=== PATIENT | female | born 1960 | race Caucasian/White ===

== ENCOUNTER 2016-02-07 15:52 | Emergency (ER) | payer BC, OTHER ==
[~2016-02-07] VITALS: Ht 154.9 cm; Wt 89.8 kg
[~2016-02-07 15:52] MED LIST: AMBI10TA PO; AMLO5TAB2 PO; ASPI81TA82 PO; FLUT1SPR9 EACH NARE; GABA600T PO; HYDR25TA5 PO; LISI40TA PO; METF500T PO; SIMV20TA PO; ZANTTAB9 PO; ZYRT10CA PO; [UNRECOGNIZED DRUG - CODE] PO
[2016-02-07 16:24] VITALS: BP 133/85; PULSE 98; RESP 20; TEMP 98.7; O2SAT 96
[2016-02-07] MEDS ORDERED: ASPI81TA11 PO (17:00)
[2016-02-07] MEDS ORDERED: CALC-179 (17:00)
[2016-02-07] MEDS ORDERED: AMOX500T PO (17:16)
[2016-02-07] MEDS ORDERED: MAGICADU2 SWISH-SPIT (17:16)
--- NOTE | 2016-02-07 17:16 | PD ---
HPI Chief Complaint: ENT Complaint Time Seen by Provider: 17:13 Travel History International Travel<30 days: No Contact w/Intl Traveler<30days: No Traveled to known affect area: No History of Present Illness HPI 55-year-old female presents to the emergency Department with complaint of nasal congestion, sore throat, facial pressure 10 days. Denies fever, chills, nausea , vomiting. Thought that she would get better and hasn't. Has been trying multiple lkdx-fon-ppwyfrc medications to help with symptoms with no relief. Denies difficulty swallowing, unusual drooling, lump in throat. Reports painful swallowing. Denies ear pain. No known aggravating or relieving factors. History of hypertension, diabetes, asthma. Has been using her albuterol inhaler through her illness. Denies chest pain, shortness of breath, wheezing. Denies allergies. No other modifying factors or associated signs and symptoms. PFSH Past Medical History Hx Anticoagulant Therapy: Yes (ASA) Arthritis: Yes Asthma: Yes Blood Disorders: No Depression: Yes Cancer: No Cardiac Catheterization: Yes Cardiovascular Problems: Yes Chest Pain: Yes Diabetes: Yes Patient Takes Glucophage: Yes Diminished Hearing: No Gastrointestinal Disorders: Yes GERD: Yes Glaucoma: Yes Genitourinary: No Headaches: No Hypertension: Yes Immune Disorder: No Musculoskeletal: Yes Neurologic: Yes Psychiatric: Yes Respiratory: Yes Immunizations Current: No ?: Not : 3 Para: 2 Miscarriage: 1 Tubal Ligation: Yes Past Surgical History Abdominal Surgery: No AICD: No Cardiac Surgery: No Coronary Stent: Yes (LEFT CIRCUMFLEX 2005) Ear Surgery: No Endocrine Surgery: No Eye Surgery: No Genitourinary Surgery: No Gynecologic Surgery: No Joint Replacement: No Oral Surgery: No Pacemaker: No Thoracic Surgery: No Social History Alcohol Use: No Tobacco Use: No (QUIT 1999) Substance Use: No Allergies-Medications (Allergen,Severity, Reaction): Coded Allergies: No Known Allergies (Verified , 02/07/16) Reported Meds & Prescriptions Reported Meds & Active Scripts Active Magic Mouthwash Adult Liq (Multi-Ingredient Mouthwash/Gargle) 120 Ml Susp 5 Ml SWISH-SPIT Q3HR PRN Each 5 mL contains: Nystatin 200,000 units, Diphenhydramine 4.25 mg, Viscous Lidocaine 10 mg, [place] syrup 0.8 mL Amoxicillin 500 Mg Tab 500 Mg PO BID 10 Days Ambien (Zolpidem Tartrate) 10 Mg Tab 10 Mg PO HS PRN Amlodipine (Amlodipine Besylate) 5 Mg Tab 5 Mg PO DAILY Lisinopril 40 Mg Tab 40 Mg PO DAILY Metformin (Metformin HCl) 500 Mg Tab 500 Mg PO BIDPC With meals Hydrochlorothiazide 25 Mg Tab 25 Mg PO DAILY Reported Calcium (Bmwonfa-Stpcelgwlm-Asegewg D-Magnesium) [id number] Oq-Tg-Sxuv-Mg Tab Unknown Dose Aspirin EC (Aspirin) 81 Mg Tabdr 81 Mg PO DAILY Review of Systems Except as stated in HPI: all other systems reviewed are Neg Physical Exam Narrative GENERAL: Well-nourished, well-developed female patient, in no acute distress SKIN: Warm and dry. No rash. HEAD: Atraumatic. Normocephalic. Frontal and maxillary sinus tenderness on palpation. EYES: Pupils equal and round at 3 mm with brisk reaction. No scleral icterus. No injection or drainage. PERRLA. ENT: Mucosa pink and moist. Oropharynx with erythema; without exudates, tonsillar edema.. No uvular edema. No uvular, palatal, or tonsillar deviation. Airway patent. EARS: Bilateral pinnae and external canals appear within normal limits. Bilateral tympanic membranes without erythema, dullness or perforation. NECK: Trachea midline. No lymphadenopathy. CARDIOVASCULAR: Regular rate and rhythm. No murmur appreciated. RESPIRATORY: No accessory muscle use. Clear to auscultation. Breath sounds equal bilaterally. GASTROINTESTINAL: Abdomen soft, non-tender, nondistended. Hepatic and splenic margins not palpable. Bowel sounds are active 4 quadrants. MUSCULOSKELETAL: No obvious deformities. No clubbing. No cyanosis. No edema. NEUROLOGICAL: Awake and alert. Oriented 3. No obvious cranial nerve deficits. Motor grossly within normal limits. Normal speech. Moves all extremities. 5/5 strength to all extremities. PSYCHIATRIC: Appropriate mood and affect; insight and judgment normal. Data Data Last Documented VS Vital Signs Date Time Temp Pulse Resp B/P Pulse Ox O2 Delivery O2 Flow Rate FiO2 02/07/16 16:24 98.7 98 20 133/85 96 MDM Medical Decision Making Medical Screen Exam Complete: Yes Emergency Medical Condition: Yes Medical Record Reviewed: Yes Differential Diagnosis Sinusitis, pharyngitis, upper respiratory infection Narrative Course 55-year-old female physical exam consistent with sinusitis and pharyngitis. Patient has been sick for 10 days. Denies fever. Afebrile in the ER. Vital signs stable. She is nontoxic-appearing. Prescribed patient antibiotics secondary to length of illness. Amoxicillin and Magic mouthwash prescribed for home. Patient is medically cleared and stable for discharge. Discussed reasons to return to the emergency department. Instructed patient to follow up with primary care provider. Patient agrees with treatment plan. The patients vital signs are stable and the patient is stable for outpatient follow-up and treatment. Patient discharged home, stable and in no acute distress. Diagnosis Primary Impression: Sinusitis Qualified Code: J01.90 - Acute sinusitis, recurrence not specified, unspecified location Additional Impression: Pharyngitis Qualified Code: J02.9 - Pharyngitis, unspecified etiology Referrals: Primary Care Physician Patient Instructions: General Instructions, Pharyngitis (ED), Sinusitis (ED) Additional Instructions: Take Antibiotics as prescribed and complete full course of antibiotics Get plenty of sleep/rest Rest your voice Drink plenty of fluids to prevent dehydration Use warm saltwater gargles to soothe throat pain Use an air humidifier/turn off ceiling fans Use throat lozenges as needed for sore throat Use ibuprofen or acetaminophen as needed to relieve pain and fever Follow-up with your primary care provider within 2-4 days Return immediately to the emergency department Med/Other Pt SpecificInfo: Prescription(s) given Scripts Oylqzsuo-Kcadvnftfsonzrh-Wsfpssuny Liq (Magic Mouthwash Adult Liq)120 Ml Susp5 Ml SWISH-SPIT Q3HR PRN (SORE THROAT) #120 ML Ref 0 Each 5 mL contains: Nystatin 200,000 units, Diphenhydramine 4.25 mg, Viscous Lidocaine 10 mg, [place] syrup 0.8 mL Prov:Marla Wheatley 02/07/16 Amoxicillin 500 Mg [id number] Mg PO BID 10 Days Ref 0 Prov:Marla Wheatley 02/07/16 Disposition: 01 DISCHARGE HOME Condition: Stable Marla Wheatley Feb 07, 2016 17:16
[2016-02-16] MEDS ORDERED: AUGM875T PO (15:53)
[2016-02-16] MEDS ORDERED: MEDR4PAK PO (15:53)
[2016-03-30] MEDS ORDERED: LISI40TA PO (15:47)
[2016-03-30] MEDS ORDERED: ACYC200C66 PO (15:47)
[2016-03-30] MEDS ORDERED: GABA600T PO (15:47)
[2016-03-30] MEDS ORDERED: AMLO5TAB2 PO (15:47)
[2016-03-30] MEDS ORDERED: SIMV20TA PO (15:47)
[2016-03-30] MEDS ORDERED: HYDR25TA5 PO (15:47)
[2016-03-30] MEDS ORDERED: METF500T PO (15:47)
[2016-03-30] MEDS ORDERED: AMBI10TA PO (15:47)
[2016-03-30] MEDS ORDERED: LATA.005%O EACH EYE (15:55)
[2016-05-22] MEDS ORDERED: CEPH-459 PO (15:57)
[2016-05-22] MEDS ORDERED: XYZA5TAB2 PO (15:57)
[2016-05-30] MEDS ORDERED: CLIN1CAP6 PO (09:45)
[2016-05-30] MEDS ORDERED: MEDR4PAK PO (09:45)
[2016-06-15] MEDS ORDERED: LATA.005%O EACH EYE ×2 (15:39→15:45)
[2016-06-15] MEDS ORDERED: IBUP-232 PO (15:54)
[2016-06-22] MEDS ORDERED: MEDICAL COMPRES1 MIS (13:48)
== END 2016-02-07 17:25 | disposition home or self-care (01) ==
LOC: PHEFT 15:52
DX: J01.90 Acute sinusitis, unspecified (principal); J02.9 Acute pharyngitis, unspecified
CPT/HCPCS: 99283

== ENCOUNTER 2017-02-14 15:13 | Emergency (ER) | payer BC ==
[~2017-02-14] VITALS: Ht 154.9 cm; Wt 86.4 kg
[~2017-02-14 15:13] MED LIST changes: +ACYC200C66 PO; +ASPI81TA23 PO; -ASPI81TA82 PO; +AZIT250T3 PO; +BENZ100 PO; +CALC-179; -FLUT1SPR9 EACH NARE; +IBUP-232 PO; +LATA.005%O EACH EYE; +MAGICADU2 SWISH-SWAL; +MEDICAL COMPRES1 MIS; +MEDR4PAK PO; +XYZA5TAB2 PO; -ZANTTAB9 PO; -ZYRT10CA PO; -[UNRECOGNIZED DRUG - CODE] PO
[2017-02-14 15:14] VITALS: BP 157/125; PULSE 106; RESP 20; TEMP 99.5; O2SAT 97
--- NOTE | 2017-02-14 16:10 | RADRPT ---
EXAM DATE/TIME: 02/14/2017 15:50 [facility] COMPARISON: CHEST PA & LAT, April 07, 2013, 5:12. INDICATIONS : Congested. Cough. Chest pain. MEDICAL HISTORY : None. SURGICAL HISTORY : None. ENCOUNTER: Initial ACUITY: 4 - 6 days PAIN SCORE: 5/10 LOCATION: Left chest FINDINGS: PA and lateral views of the chest demonstrate the lungs to be symmetrically aerated without evidence of mass, infiltrate or effusion. The cardiomediastinal contours are unremarkable. Osseous structure s are intact. CONCLUSION: No acute disease. Yfn Norton MD FACR on February 14, 2017 at 16:07 Board Certified Radiologist. This report was verified electronically.
[2017-02-14 16:48] LABS: AUTOMATED NEUTROPHIL # 3.7 TH/MM3 (1.8-7.7); BASOPHIL % 0.6 % (0.0-2.0); EOSINOPHIL % 0.3 % (0.0-4.0); HEMATOCRIT 34.9 % (35.0-46.0); HEMOGLOBIN 12.2 GM/DL (11.6-15.3); LYMPHOCYTE # 1.9 TH/MM3 (1.0-4.8); MEAN CELL VOLUME 85.9 FL (80.0-100.0); MEAN CORPUSCULAR HEMOGLOBIN 30.2 PG (27.0-34.0); MEAN CORPUSCULAR HGB CONC 35.1 % (32.0-36.0); MEAN PLATELET VOLUME 8.5 FL (7.0-11.0); MONO % 11.5 % (0.0-8.0); MONOCYTE # 0.7 TH/MM3 (0-0.9); NEUT % 57.6 % (16.0-70.0); PLATELET COUNT 283 TH/MM3 (150-450); RED BLOOD COUNT 4.06 MIL/MM3 (4.00-5.30); WHITE BLOOD COUNT 6.4 TH/MM3 (4.0-11.0)
[2017-02-14 17:13] LABS: ALBUMIN 3.6 GM/DL (3.4-5.0); AST (GOT) 40 U/L (15-37); BICARBONATE 26.5 MEQ/L (21.0-32.0); BLOOD UREA NITROGEN 15 MG/DL (7-18); CALCIUM 8.9 MG/DL (8.5-10.1); CHLORIDE 99 MEQ/L (98-107); GLOMERULAR FILTRATION RATE 65 ML/MIN (>89); GLUCOSE,RANDOM 143 MG/DL (74-106); SODIUM (NA) 137 MEQ/L (136-145)
[2017-02-14 17:18] LABS: ALKALINE PHOSPHATASE 94 U/L (45-117); ALT (GPT) 47 U/L (10-53)
[2017-02-14 17:19] LABS: TOTAL BILIRUBIN ADULT 0.3 MG/DL (0.2-1.0); TOTAL PROTEIN 7.8 GM/DL (6.4-8.2)
[2017-02-14 17:37] VITALS: BP 133/73; PULSE 96; RESP 20; TEMP 99.1; O2SAT 98
--- NOTE | 2017-02-14 18:08 | PD ---
HPI Chief Complaint: Respiratory Symptoms Time Seen by Provider: 18:07 Travel History International Travel<30 days: No Contact w/Intl Traveler<30days: No Traveled to known affect area: No History of Present Illness HPI 56-year-old female with history of COPD using an albuterol inhaler daily presents the emergency Department with several day history of increased cough, sinus congestion, and postnasal drip. Patient states she's been having a lot of nasal drainage. Patient feels she is wheezing using her metered-dose inhaler more frequently without improvement. Patient has had a fever 103 over the past weekend. Patient denies abdominal symptoms. She denies chest pain. She denies ear pain. Patient has needed prednisone in the past for her lungs. She is allergic to cefuroxime. PFSH Past Medical History Hx Anticoagulant Therapy: Yes (ASA) Arthritis: Yes Asthma: Yes Blood Disorders: No Depression: Yes Cancer: No Cardiac Catheterization: Yes Cardiovascular Problems: Yes Chest Pain: Yes Diabetes: Yes Patient Takes Glucophage: Yes Diminished Hearing: No Gastrointestinal Disorders: Yes GERD: Yes Glaucoma: Yes Genitourinary: No Headaches: No Hypertension: Yes Immune Disorder: No Musculoskeletal: Yes Neurologic: Yes (PHERIPHERAL NEUROPATHY) Psychiatric: Yes Respiratory: Yes Immunizations Current: No Tetanus Vaccination: > 5 Years Influenza Vaccination: Yes ?: Not : 3 Para: 2 Miscarriage: 1 : 0 Tubal Ligation: Yes Past Surgical History Abdominal Surgery: No AICD: No Cardiac Surgery: No Coronary Stent: Yes (LEFT CIRCUMFLEX 2005) Ear Surgery: No Endocrine Surgery: No Eye Surgery: No Genitourinary Surgery: No Gynecologic Surgery: No Joint Replacement: No Oral Surgery: No Pacemaker: No Thoracic Surgery: No Social History Alcohol Use: No Tobacco Use: No (QUIT 1999) Substance Use: No Allergies-Medications (Allergen,Severity, Reaction): Coded Allergies: cefuroxime (Verified Allergy, Mild, Rash, 02/14/17) itchy rash on arms and legs Reported Meds & Prescriptions Reported Meds & Active Scripts Active K-Tab (Potassium Chloride) 20 Meq Tab 20 Meq PO DAILY 10 Days Azithromycin 500 Mg Tab 500 Mg PO DAILY Ventolin Hfa 18 GM Inh (Albuterol Sulfate) 90 Mcg/Act Aer 2 Puff INH Q4-6H PRN Prednisone 20 Mg Tab 20 Mg PO BID 5 Days Simvastatin 20 Mg Tab 20 Mg PO HS Acyclovir 200 Mg Cap 200 Mg PO 5 TIMES A DAY Ambien (Zolpidem Tartrate) 10 Mg Tab 10 Mg PO HS PRN Ibuprofen 600 Mg Tab 600 Mg PO Q8HR PRN Gabapentin 600 Mg Tab 600 Mg PO TID Hydrochlorothiazide 25 Mg Tab 25 Mg PO DAILY Metformin (Metformin HCl) 500 Mg Tab 500 Mg PO BIDPC With meals Xalatan Opth Drops (Latanoprost) 0.005% Drops 1 Drop EACH EYE HS 90 Days Amlodipine (Amlodipine Besylate) 5 Mg Tab 5 Mg PO DAILY Lisinopril 40 Mg Tab 40 Mg PO DAILY Reported Aspirin EC (Aspirin) 81 Mg Tabdr 81 Mg PO DAILY Review of Systems Except as stated in HPI: all other systems reviewed are Neg General / Constitutional: Positive: Fever, Chills Eyes: No: Visual changes HENT: Positive: Headaches, Sore Throat, Rhinitis, Rhinorrhea, Congestion, No: Vertigo, Lightheadedness, Nosebleed, Neck Stiffness, Neck Pain, Dental Difficulties, Earache Cardiovascular: No: Chest Pain or Discomfort Respiratory: Positive: Cough, Shortness of Breath, Wheezing, Orthopnea, No: Sneezing, Hemoptysis, Night Sweats, Pleuritic Pain Gastrointestinal: No: Nausea, Vomiting, Diarrhea, Abdominal Pain Genitourinary: No: Dysuria Musculoskeletal: No: Pain Skin: No Rash Neurologic: No: Weakness Psychiatric: No: Depression Endocrine: No: Polydipsia Hematologic/Lymphatic: No: Easy Bruising Physical Exam Narrative GENERAL: Patient appears in no obvious distress. SKIN: Warm and dry. Normal color. Normal turgor. HEAD: Atraumatic. Normocephalic. No sinus tenderness to palpation. EYES: Pupils equal and round. No scleral icterus. No injection or drainage. ENT: No nasal bleeding or discharge. Mucous membranes pink and moist. TMs are dull bilaterally but no injection. The posterior pharynx is somewhat erythematous with postnasal drip noted. NECK: Trachea midline. Supple nontender.. CARDIOVASCULAR: Regular rate and rhythm. RESPIRATORY: No accessory muscle use. Moderate diffuse wheezes to auscultation. Breath sounds equal bilaterally. GASTROINTESTINAL: Abdomen soft, non-tender, nondistended. Hepatic and splenic margins not palpable. MUSCULOSKELETAL: Extremities without clubbing, cyanosis, or edema. No obvious deformities. NEUROLOGICAL: Awake and alert. No obvious cranial nerve deficits. Motor grossly within normal limits. Five out of 5 muscle strength in the arms and legs. Normal speech. PSYCHIATRIC: Appropriate mood and affect; insight and judgment normal. Data Data Last Documented VS Vital Signs Date Time Temp Pulse Resp B/P (MAP) Pulse Ox O2 Delivery O2 Flow Rate FiO2 02/14/17 17:37 99.1 96 20 133/73 (93) 98 Room Air Orders Orders Complete Blood Count With Diff (02/14/17 15:39) Comprehensive Metabolic Panel (02/14/17 15:39) Chest, Pa & Lat (02/14/17 15:39) Group A Rapid Strep Screen (02/14/17 15:39) Strep Culture (Group A) (02/14/17 16:00) Prednisone (Deltasone) (02/14/17 18:15) Albuterol-Ipratropium Neb (Duoneb Neb) (02/14/17 18:15) Azithromycin (Zithromax) (02/14/17 18:15) Electrocardiogram (02/14/17 ) Potassium Chloride (Kcl) (02/14/17 18:45) Labs Laboratory Tests Test 02/14/17 16:00 White Blood Count 6.4 TH/MM3 Red Blood Count 4.06 MIL/MM3 Hemoglobin 12.2 GM/DL Hematocrit 34.9 % Mean Corpuscular Volume 85.9 FL Mean Corpuscular Hemoglobin 30.2 PG Mean Corpuscular Hemoglobin Concent 35.1 % Red Cell Distribution Width 14.0 % Platelet Count 283 TH/MM3 Mean Platelet Volume 8.5 FL Neutrophils (%) (Auto) 57.6 % Lymphocytes (%) (Auto) 30.0 % Monocytes (%) (Auto) 11.5 % Eosinophils (%) (Auto) 0.3 % Basophils (%) (Auto) 0.6 % Neutrophils # (Auto) 3.7 TH/MM3 Lymphocytes # (Auto) 1.9 TH/MM3 Monocytes # (Auto) 0.7 TH/MM3 Eosinophils # (Auto) 0.0 TH/MM3 Basophils # (Auto) 0.0 TH/MM3 CBC Comment DIFF FINAL Differential Comment Blood Urea Nitrogen 15 MG/DL Creatinine 0.90 MG/DL Random Glucose 143 MG/DL Total Protein 7.8 GM/DL Albumin 3.6 GM/DL Calcium Level 8.9 MG/DL Alkaline Phosphatase 94 U/L Aspartate Amino Transf (AST/SGOT) 40 U/L Alanine Aminotransferase (ALT/SGPT) 47 U/L Total Bilirubin 0.3 MG/DL Sodium Level 137 MEQ/L Potassium Level 2.7 MEQ/L Chloride Level 99 MEQ/L Carbon Dioxide Level 26.5 MEQ/L Anion Gap 12 MEQ/L Estimat Glomerular Filtration Rate 65 ML/MIN MDM Medical Decision Making Medical Screen Exam Complete: Yes Emergency Medical Condition: Yes Medical Record Reviewed: Yes Differential Diagnosis Upper respiratory infection. COPD with acute exacerbation. Bronchitis. Wheezing. Pneumonia. Narrative Course Patient is medically stable at time of exam. Labs ordered in triage are unremarkable except for potassium of 2.7.. Rapid strep is negative. Chest x-ray is unremarkable for acute process. EKG shows normal sinus rhythm. Patient is given 40 mEq of potassium by mouth now. Patient is given prednisone 60 mg by mouth. Patient is given DuoNeb 1. Patient is given azithromycin 500 mg daily. Patient is felt stable for discharge home. Patient was continued on prednisone 20 mg twice a day 5 days. Patient continued on azithromycin 500 mg daily #5. Patient is given albuterol metered-dose inhaler 2 puffs every 4-6 hours when necessary. Patient is to follow up if symptoms do not improve over the next several days, or worsen. Diagnosis Primary Impression: Acute wheezy bronchitis Additional Impression: Hypokalemia Referrals: Primary Care Physician 3 days Patient Instructions: Acute Bronchitis (ED), General Instructions, Hypokalemia (ED), Wheezing (ED) Additional Instructions: EKG shows normal sinus rhythm. Patient is given 40 mEq of potassium by mouth now. Patient is given prednisone 60 mg by mouth. Patient is given DuoNeb 1. Patient is given azithromycin 500 mg daily. Patient is felt stable for discharge home. Patient was continued on prednisone 20 mg twice a day 5 days. Patient continued on azithromycin 500 mg daily #5. Patient is to continue potassium 20 mEq daily for the next 7 days. Patient is given albuterol metered-dose inhaler 2 puffs every 4-6 hours when necessary. Patient is to follow up if symptoms do not improve over the next several days, or worsen. Med/Other Pt SpecificInfo: Prescription(s) given Scripts Potassium Chloride ER (K-Tab) 20 Meq Tab 20 MEQ PO DAILY for Electrolyte Replacement for 10 Days, #10 TAB 0 Refills Prov: Highet,Jemima H. MD 02/14/17 Azithromycin (Azithromycin) 500 Mg Tab 500 MG PO DAILY for Infection, #5 TAB 0 Refills Prov: Jemima Haney MD 02/14/17 Albuterol 18 GM Inh (Ventolin Hfa 18 GM Inh) 90 Mcg/Act Aer 2 PUFF INH Q4-6H Y for SHORTNESS OF BREATH, #1 INHALER 0 Refills Prov: Jemima Haney MD 02/14/17 Prednisone (Prednisone) 20 Mg Tab 20 MG PO BID for 5 Days, #10 TAB 0 Refills Prov: Jemima Haney MD 02/14/17 Disposition: 01 DISCHARGE HOME Condition: Stable David Glover Feb 14, 2017 18:08
[2017-02-14] MEDS ORDERED: predniSONE 20 MG TAB PO ONE (18:15)
[2017-02-14] MEDS: RESP: ALBUTEROL 2.5 MG/IPRATROPIUM 0.5 MG NEB (SCH) INH ×3 (18:15→18:43)
[2017-02-14] MEDS ORDERED: AZITHROMYCIN 250 MG TAB PO ONE (18:15)
[2017-02-14] MEDS ORDERED: AZIT500T2 PO (18:22)
[2017-02-14] MEDS ORDERED: PRED20 PO (18:22)
[2017-02-14] MEDS ORDERED: VENTAER INH (18:22)
[2017-02-14] MEDS ORDERED: POTA1TAB4 PO (18:35)
[2017-02-14] MEDS ORDERED: POTASSIUM CHLORIDE 20 MEQ CONTROLLED RELEASE TAB PO ONE (18:45)
[2017-02-14 19:47] VITALS: BP 117/67; PULSE 105; RESP 18; O2SAT 96
--- NOTE | 2017-02-15 18:06 | EKG ---
Date Performed: 02/14/2017 Time Performed: 18:50:10 PTAGE: 56 years EKG: Sinus rhythm MARKED LEFT AXIS DEVIATION LOW QRS VOLTAGE IN PRECORDIAL LEADS NONSPECIFIC T-WAVE ABNORMALITY ABNORM AL ECG PREVIOUS TRACING : 06/25/2007 07.28 SINCE PRIOR TRACING NONSPECIFIC T-WAVE CHANGES ARE NEW. SLI GHT BACKWARD SHIFT IN THE AXIS Clinical correlation is recommended DOCTOR: Sandra Prado Interpretating Date/Time 02/15/2017 18:04:33
== END 2017-02-14 19:48 | disposition home or self-care (01) ==
LOC: NEPD 15:13
DX: J20.9 Acute bronchitis, unspecified (principal); E87.6 Hypokalemia; J45.909 Unspecified asthma, uncomplicated; R07.9 Chest pain, unspecified; E11.9 Type 2 diabetes mellitus without complications; K21.9 Gastro-esophageal reflux disease without esophagitis; H40.9 Unspecified glaucoma; I10 Essential (primary) hypertension
CPT/HCPCS: 71046; 80053; 85025; 87081; 87880; 93005; 94640; 94664; 99285; J7512

== ENCOUNTER 2017-02-26 11:23 | Inpatient (IN) | payer OTHER, BC ==
[~2017-02-26] VITALS: Ht 154.9 cm; Wt 84.1 kg
[2017-02-26] VITALS (23 sets, daily range): BP systolic 132–173; BP diastolic 67–109; PULSE 62–97; RESP 12–22; TEMP 97.6–98.4; O2SAT 96–100
[~2017-02-26 11:23] MED LIST changes: -AZIT250T3 PO; +AZIT500T2 PO; -BENZ100 PO; -CALC-179; -MAGICADU2 SWISH-SWAL; -MEDICAL COMPRES1 MIS; -MEDR4PAK PO; +POTA1TAB4 PO; +PRED20 PO; +VENTAER INH; -XYZA5TAB2 PO
[2017-02-26] MEDS ORDERED: IOHEXOL 350 MG/ML 10 ML VIAL (for RAD DIAG) IVCONTRAST ONE (11:24)
[2017-02-26] MEDS ORDERED: SODIUM CHLOR 0.9% 1000 ML INJ 1,000 ML IV ONE (12:10)
[2017-02-26 12:30] LABS: AUTOMATED NEUTROPHIL # 14.6 TH/MM3 (1.8-7.7); BASOPHIL % 0.1 % (0.0-2.0); EOSINOPHIL % 0.2 % (0.0-4.0); HEMATOCRIT 41.9 % (35.0-46.0); HEMOGLOBIN 14.5 GM/DL (11.6-15.3); LYMPH % 17.6 % (9.0-44.0); LYMPHOCYTE # 3.4 TH/MM3 (1.0-4.8); MEAN CELL VOLUME 86.6 FL (80.0-100.0); MEAN CORPUSCULAR HGB CONC 34.7 % (32.0-36.0); MEAN PLATELET VOLUME 7.6 FL (7.0-11.0); MONO % 5.7 % (0.0-8.0); MONOCYTE # 1.1 TH/MM3 (0-0.9); NEUT % 76.4 % (16.0-70.0); PLATELET COUNT 433 TH/MM3 (150-450); RED BLOOD COUNT 4.84 MIL/MM3 (4.00-5.30); RED CELL DISTRIBUTION WIDTH 14.3 % (11.6-17.2); WHITE BLOOD COUNT 19.1 TH/MM3 (4.0-11.0)
--- NOTE | 2017-02-26 12:45 | RADRPT ---
EXAM DATE/TIME: 02/26/2017 12:14 [facility] COMPARISON: No previous studies available for comparison. INDICATIONS : Visual problems and speech problems IV CONTRAST: 85 cc Omnipaque 350 (iohexol) IV ; Cumulative dose for multiple exams. RADIATION DOSE: 10.30 CTDIvol (mGy) ; Combined studies MEDICAL HISTORY : Unable to obtain SURGICAL HISTORY : Unable to obtain ENCOUNTER: Initial ACUITY: 1 day PAIN SCALE: 5/10 LOCATION: Cta brain TECHNIQUE: Volumetric scanning was performed using a multi-row detector CT scanner. The data was post processed with a variety of visualization algorithms including full volume maximum intensity projection, multi -planar sliding thin slab reformation, curved planar reformation, and surface rendering techniques. Using automated exposure control and adjustment of the mA and/or kV according to patient size, radiat ion dose was kept as low as reasonably achievable to obtain optimal diagnostic quality images. DICO M format image data is available electronically for review and comparison. FINDINGS: There is good visualization of the major intracranial arteries out to the second-order branch vessels . There is no evidence for aneurysm, vessel truncation or stenosis, and no evidence for vascular mal formation. There is no major branch vessel occlusion. CONCLUSION: No major branch vessel occlusion. Yfn Norton MD FACR on February 26, 2017 at 12:41 Board Certified Radiologist. This report was verified electronically.
--- NOTE | 2017-02-26 12:52 | RADRPT ---
EXAM DATE/TIME: 02/26/2017 12:14 [facility] COMPARISON: No previous studies available for comparison. INDICATIONS : Problems with speech and visual problems. IV CONTRAST: 85 cc Omnipaque 350 (iohexol) IV ; Cumulative dose for multiple exams. RADIATION DOSE: 10.30 CTDIvol (mGy) ; Combined studies MEDICAL HISTORY : Unable to obtain SURGICAL HISTORY : Unable to obtain ENCOUNTER: Initial ACUITY: 1 day PAIN SCALE: 5/10 LOCATION: Cta neck Elevated flow velocities and ICA/CCA ratios have been found to correlate with increased degrees of vessel stenosis, calculated as percentage of diameter relative to a normal segment of distal ICA/CCA. TECHNIQUE: Volumetric scanning was performed using a multirow detector CT scanner. The data was post processed with a variety of visualization algorithms including full-volume maximum intensity projection, multip lanar sliding thin-slab reformation, curved-planar reformation, and surface-rendering techniques. Us ing automated exposure control and adjustment of the mA and/or kV according to patient size, radiatio n dose was kept as low as reasonably achievable to obtain optimal diagnostic quality images. DICOM f ormat image data is available electronically for review and comparison. FINDINGS: AORTIC ARCH: There is a three-vessel origin of the great vessels from the aorta. No evidence of ostial narrowing. There is a calcified plaque at the origin of the left subclavian artery. RIGHT CAROTID: The common carotid artery is intact. The carotid bulb has a normal configuration without ulceration o r narrowing. There is some mild atherosclerotic changes of the bifurcation. The internal carotid saravanan ry lumen is without stenosis. The external carotid artery is intact. LEFT CAROTID: The common carotid artery is intact. There are some calcified plaques at the carotid bifurcation and at the origin of the left internal carotid artery. This causing some mild stenosis of approximately 4 0-50%. There is flow in the external carotid artery.. VERTEBRALS: There is a dominant left vertebral artery. There is a smaller patent right vertebral artery. CONCLUSION: 1. There is calcified atherosclerotic plaquing at the left carotid bifurcation causing some focal mil d narrowing at the origin of the left internal carotid artery of approximately 40-50%. 2. There is mild atherosclerotic plaquing at the right carotid bifurcation. No focal or significant s tenosis is demonstrated. 3. Dominant right vertebral artery. Escobar Dailey MD on February 26, 2017 at 12:44 Board Certified Radiologist. This report was verified electronically.
--- NOTE | 2017-02-26 12:52 | PD ---
HPI Chief Complaint: Syncope/Near-Syncope Time Seen by Provider: 12:07 Travel History International Travel<30 days: No Contact w/Intl Traveler<30days: No Traveled to known affect area: No History of Present Illness HPI 56-year-old female complains of headache, blurred vision, slurring speech and near syncope. Patient states that she started having headaches this morning about 3 hours prior to arrival. Patient started having blurred vision and slurred speech about an hour and a half prior to arrival. Patient has history of migraine headache. Patient denies any visual disturbance during past migraine headache. Patient denies any neurologic deficit during past migraine headache. Patient denies any history of TIA or CVA. Patient is not on anticoagulation. Patient has history of hypertension, diabetes. Patient denies history of hyperlipidemia. Patient's a non-smoker. PFSH Past Medical History Hx Anticoagulant Therapy: Yes (ASA) Arthritis: Yes Asthma: Yes Blood Disorders: No Depression: Yes Cancer: No Cardiac Catheterization: Yes Cardiovascular Problems: Yes Chest Pain: Yes Diabetes: Yes Diminished Hearing: No Gastrointestinal Disorders: Yes GERD: Yes Glaucoma: Yes Genitourinary: No Headaches: No Hypertension: Yes Immune Disorder: No Musculoskeletal: Yes Neurologic: Yes (PHERIPHERAL NEUROPATHY) Psychiatric: Yes Respiratory: Yes Immunizations Current: No : 3 Para: 2 Miscarriage: 1 : 0 Tubal Ligation: Yes Past Surgical History Abdominal Surgery: No AICD: No Cardiac Surgery: No Coronary Stent: Yes (LEFT CIRCUMFLEX 2005) Ear Surgery: No Endocrine Surgery: No Eye Surgery: No Genitourinary Surgery: No Gynecologic Surgery: No Joint Replacement: No Oral Surgery: No Pacemaker: No Thoracic Surgery: No Social History Alcohol Use: No Tobacco Use: No (QUIT 1999) Substance Use: No Allergies-Medications (Allergen,Severity, Reaction): Coded Allergies: cefuroxime (Verified Allergy, Mild, Rash, 02/26/17) itchy rash on arms and legs Reported Meds & Prescriptions Reported Meds & Active Scripts Active Ventolin Hfa 18 GM Inh (Albuterol Sulfate) 90 Mcg/Act Aer 2 Puff INH Q4-6H PRN Acyclovir 200 Mg Cap 200 Mg PO 5 TIMES A DAY Ambien (Zolpidem Tartrate) 10 Mg Tab 10 Mg PO HS PRN Ibuprofen 600 Mg Tab 600 Mg PO Q8HR PRN Hydrochlorothiazide 25 Mg Tab 25 Mg PO DAILY Metformin (Metformin HCl) 500 Mg Tab 500 Mg PO BIDPC With meals Amlodipine (Amlodipine Besylate) 5 Mg Tab 5 Mg PO DAILY Lisinopril 40 Mg Tab 40 Mg PO DAILY Review of Systems General / Constitutional: No: Fever Eyes: Positive: Blurred Vision, No: Visual changes HENT: Positive: Headaches Cardiovascular: No: Chest Pain or Discomfort Respiratory: No: Shortness of Breath Gastrointestinal: No: Abdominal Pain Genitourinary: No: Dysuria Musculoskeletal: No: Pain Skin: No Rash Neurologic: No: Weakness Psychiatric: No: Depression Endocrine: No: Polydipsia Hematologic/Lymphatic: No: Easy Bruising Physical Exam Narrative GENERAL: Well-nourished, well-developed patient. SKIN: Focused skin assessment warm/dry. HEAD: Normocephalic. EYES: No scleral icterus. No injection or drainage. NECK: Supple, trachea midline. No JVD or lymphadenopathy. CARDIOVASCULAR: Regular rate and rhythm without murmurs, gallops, or rubs. RESPIRATORY: Breath sounds equal bilaterally. No accessory muscle use. GASTROINTESTINAL: Abdomen soft, non-tender, nondistended. MUSCULOSKELETAL: No cyanosis, or edema. BACK: Nontender without obvious deformity. No CVA tenderness. Neurologic exam: Patient awake alert oriented 3. Patient has mild blurred vision however no absolute focal visual field defect. Extraocular muscles intact. Fundi benign. Patient has intermittent mild slurring speech. Patient moves all extremities well. No obvious focal neurological deficit. Data Data Last Documented VS Vital Signs Date Time Temp Pulse Resp B/P (MAP) Pulse Ox O2 Delivery O2 Flow Rate FiO2 02/26/17 14:50 87 18 132/67 (88) 99 Nasal Cannula 2.00 02/26/17 11:27 98.4 Orders Orders Diet Npo (02/26/17 Lunch) Activity Bed Rest (02/26/17 ) Electrocardiogram (02/26/17 ) I-Stat Profile (02/26/17 12:10) Prothrombin Time / Inr (Pt) (02/26/17 12:10) Act Partial Throm Time (Ptt) (02/26/17 12:10) Complete Blood Count With Diff (02/26/17 12:10) Creatine Kinase (Cpk) (02/26/17 12:10) Ua Includes Microscopic (02/26/17 12:10) Type And Screen (02/26/17 12:10) Ct Brain W/O Iv Contrast(Rout) (02/26/17 ) Cta Brain W Iv Contrast W 3d (02/26/17 12:10) Cta Neck W Iv Contrast W 3d (02/26/17 12:10) Consult Neurology (02/26/17 ) Blood Glucose (02/26/17 12:10) Ecg Monitoring (02/26/17 12:10) Neuro Checks Q2HX12,Q4H (02/26/17 12:10) Nursing Bedside Swallow Assess .ONCE (02/26/17 12:10) Iv Access Insert/Monitor (02/26/17 12:10) NPO (02/26/17 12:10) Oximetry (02/26/17 12:10) Resp Oxygen Nc Stroke (02/26/17 ) Sodium Chlor 0.9% 1000 Ml Inj (Ns 1000 M (02/26/17 12:10) Cath For Specimen (02/26/17 12:10) (Hub Use Only)Inp Phy Cons/Ref (02/26/17 ) (Hub Use Only)Inp Phy Cons/Ref (02/26/17 ) CKMB (02/26/17 12:10) CKMB% (02/26/17 12:10) Iohexol 350 Inj (Omnipaque 350 Inj) (02/26/17 11:24) Mri Brain W/O Contrast (02/26/17 12:54) ^ Call Pharmacy (02/26/17 13:42) Nih Stroke Scale - Nihss .ONCE (02/26/17 13:42) Urinary Catheter Insert/Apply (02/26/17 13:42) Anticoagulant Alert (02/26/17 13:42) ^ Post Infusion Restrictions (02/26/17 13:42) ^ Medication Alert (02/26/17 13:42) Vital Signs (Adult) .As directed (02/26/17 13:42) Notify Dr: Blood Pressure (02/26/17 13:42) ^ Medication Alert (02/26/17 13:42) Alteplase Bolus (Activase Bolus) (02/26/17 13:45) Alteplase Drip (Activase Drip) (02/26/17 13:45) Sodium Chloride 0.9% Inj (Ns Inj) (02/26/17 13:45) [facility] Nursing Information (02/26/17 13:45) Resp Oxygen Nc Stroke (02/26/17 ) Ondansetron Inj (Zofran Inj) (02/26/17 14:45) Labs Laboratory Tests Test 02/26/17 12:10 02/26/17 12:56 White Blood Count 19.1 TH/MM3 Red Blood Count 4.84 MIL/MM3 Hemoglobin 14.5 GM/DL Bedside Hemoglobin 14.6 G/DL Hematocrit 41.9 % Bedside Hematocrit 43.0 % Mean Corpuscular Volume 86.6 FL Mean Corpuscular Hemoglobin 30.0 PG Mean Corpuscular Hemoglobin Concent 34.7 % Red Cell Distribution Width 14.3 % Platelet Count 433 TH/MM3 Mean Platelet Volume 7.6 FL Neutrophils (%) (Auto) 76.4 % Lymphocytes (%) (Auto) 17.6 % Monocytes (%) (Auto) 5.7 % Eosinophils (%) (Auto) 0.2 % Basophils (%) (Auto) 0.1 % Neutrophils # (Auto) 14.6 TH/MM3 Lymphocytes # (Auto) 3.4 TH/MM3 Monocytes # (Auto) 1.1 TH/MM3 Eosinophils # (Auto) 0.0 TH/MM3 Basophils # (Auto) 0.0 TH/MM3 CBC Comment AUTO DIFF Differential Total Cells Counted 100 Neutrophils % (Manual) 75 % Band Neutrophils % 1 % Lymphocytes % 13 % Monocytes % 7 % Neutrophils # (Manual) 15.3 TH/MM3 Myelocytes 4 % Differential Comment FINAL DIFF MANUAL Platelet Estimate NORMAL Platelet Morphology Comment NORMAL Bedside Sodium 130 MMOL/L Bedside Potassium 3.7 MMOL/L Bedside Chloride 93 MMOL/L Bedside Blood Urea Nitrogen 27 MG/DL Bedside Creatinine 1.0 MG/DL Bedside Glucose 277 MG/DL Total Creatine Kinase 207 U/L Creatine Kinase MB 5.8 NG/ML Creatine Kinase MB % 2.8 % Prothrombin Time 10.4 SEC Prothromb Time International Ratio 1.0 RATIO Activated Partial Thromboplast Time 18.1 SEC MDM Medical Decision Making Medical Screen Exam Complete: Yes Emergency Medical Condition: Yes Interpretation(s) Last Impressions Brain MRI 02/26/17 1254 Signed Impressions: Service Date/Time: Sunday, February 26, 2017 13:16 - CONCLUSION: Scattered areas of restricted diffusion anomaly posterior fossa and left occipital lobe. Findings would be consistent with emboli. Yfn Norton MD FACR Neck CTA 02/26/17 1210 Signed Impressions: Service Date/Time: Sunday, February 26, 2017 12:14 - CONCLUSION: 1. There is calcified atherosclerotic plaquing at the left carotid bifurcation causing some focal mild narrowing at the origin of the left internal carotid artery of approximately 40-50%%. 2. There is mild atherosclerotic plaquing at the right carotid bifurcation. No focal or significant stenosis is demonstrated. 3. Dominant right vertebral artery. Escobar Dailey MD Head CTA 02/26/17 1210 Signed Impressions: Service Date/Time: Sunday, February 26, 2017 12:14 - CONCLUSION: No major branch vessel occlusion. Yfn Norton MD FACR Head CT 02/26/17 0000 Signed Impressions: Service Date/Time: Sunday, February 26, 2017 12:04 - CONCLUSION: Negative for hemorrhage or acute process. Yfn Norton MD FACR Differential Diagnosis Differential diagnosis including complex migraine, TIA, CVA, hypoglycemia, hyperglycemia, electrolyte imbalance, dehydration, arrhythmia. Narrative Course 56-year-old female with blurring vision and intermittent slurring speech. Patient also has headache. History of migraine. Stroke alert was called. I spoke with Dr. Santizo, neurology on-call. NIH scale is1. Patient is not a candidate for TPA. Head of bed flat. O2 2 L nasal cannula. Normal saline solution 70 cc an hour. Diagnosis Primary Impression: Acute CVA (cerebrovascular accident) Admitting Information Admitting Physician Requests: Admit Leonardo Welch MD Feb 26, 2017 12:52
--- NOTE | 2017-02-26 13:11 | RADRPT ---
EXAM DATE/TIME: 02/26/2017 12:04 [facility] COMPARISON: No previous studies available for comparison. INDICATIONS : Stroke alert,visual problems,speech problems. RADIATION DOSE: 56.35 CTDIvol (mGy) This report was called to Dr. Welch at at 1210. MEDICAL HISTORY : Unable to obtain SURGICAL HISTORY : Unable to obtain ENCOUNTER: Initial ACUITY: 1 day PAIN SCALE: 5/10 LOCATION: cranial TECHNIQUE: Multiple contiguous axial images were obtained of the head. Using automated exposure control and adj ustment of the mA and/or kV according to patient size, radiation dose was kept as low as reasonably a chievable to obtain optimal diagnostic quality images. DICOM format image data is available electro nically for review and comparison. FINDINGS: CEREBRUM: The ventricles are normal for age. No evidence of midline shift, mass lesion, hemorrhage or acute in farction. No extra-axial fluid collections are seen. Minimal periventricular white matter changes a re noted. POSTERIOR FOSSA: The cerebellum and brainstem are intact. The 4th ventricle is midline. The cerebellopontine angle i s unremarkable. EXTRACRANIAL: The visualized portion of the orbits is intact. SKULL: The calvaria is intact. No evidence of skull fracture. CONCLUSION: Negative for hemorrhage or acute process. Yfn Norton MD FACR on February 26, 2017 at 13:07 Board Certified Radiologist. This report was verified electronically.
[2017-02-26 13:31] LABS: BANDS 1 % (0-6); LYMPHOCYTES 13 % (9-44); MONOCYTES 7 % (0-8); MYELOCYTES 4 % (0-0); NEUTROPHIL # MANUAL DIFF 15.3 TH/MM3 (1.8-7.7); POLYS (SEG NEUTROPHILS) 75 % (16-70)
[2017-02-26 13:42] LABS: PROTHROMBIN TIME - PATIENT 10.4 SEC (9.8-11.6)
[2017-02-26] MEDS ORDERED: SODIUM CHLORIDE 0.9% 50 ML BAG IVF ONE (13:45)
[2017-02-26] MEDS ORDERED: ALTEPLASE BOLUS 9 MG/9 ML SYR IV ONE (13:45)
[2017-02-26] MEDS ORDERED: MISCELLANEOUS NURSING INFORMATION XX PRN (13:45)
[2017-02-26] MEDS ORDERED: ALTEPLASE DRIP IV ONE (13:45)
--- NOTE | 2017-02-26 13:50 | RADRPT ---
EXAM DATE/TIME: 02/26/2017 13:16 [facility] COMPARISON: CTA BRAIN W 3D RECON, February 26, 2017, 12:14. CTA CAROTID ARTERIES W 3D RECON, February 26, 2017, 12 :14. INDICATIONS : Visual problems and speech problems MEDICAL HISTORY : Diabetes mellitus type 2. Hypertension. SURGICAL HISTORY : None. ENCOUNTER: Initial ACUITY: 1 day PAIN SCORE: 0/10 LOCATION: cranial TECHNIQUE: Multiplanar, multisequence MRI of the brain was performed without contrast. FINDINGS: Patchy areas of restricted diffusion are seen in both cerebellar hemispheres, left occipital lobe and in the left thalamus. The bibasilar artery is patent. There are moderate periventricular white matter changes evident. There is no parenchymal hemorrhage. There are no extra-axial fluid collections appreciated. CONCLUSION: Scattered areas of restricted diffusion anomaly posterior fossa and left occipital lo be. Findings would be consistent with emboli. Yfn Norton MD FACR on February 26, 2017 at 13:45 Board Certified Radiologist. This report was verified electronically.
[2017-02-26] MEDS ORDERED: ONDANSETRON HCL 4 MG/2 ML VIAL IV PUSH ONE (14:45)
--- NOTE | 2017-02-26 14:47 | MB ---
cc: AZEEM CERVANTES MD DATE OF CONSULTATION 02/26/2017 REASON FOR CONSULTATION Stroke Alert. HISTORY OF PRESENT ILLNESS Ms. Bolanos is a 56-year-old female who presented to the [facility] Emergency Room because of a Stroke Alert. She complained of headache, blurred vision, slurred speech and near-syncope. The patient started having a headache three hours prior to arrival with blurred vision and slurring of speech. The patient has a history of migraine headache. Denies any visual disturbances during the past migraine headaches. She has a history of hypertension and diabetes. She is not on a blood thinner. Denies any history of TIA or stroke. REVIEW OF SYSTEMS A 12-point review of systems is negative except for what is stated in the HPI. PAST MEDICAL HISTORY 1. Asthma. 2. Arthritis. 3. Hypertension. 4. She is on aspirin 81. 5. GERD. 6. Migraines. 7. Neuropathy. PAST SURGICAL HISTORY 1. Coronary artery stents. 2. Tubal ligation. SOCIAL HISTORY Denies alcohol or illicit drugs. She is a former smoker. ALLERGIES CEFUROXIME. MEDICATIONS 1. Ventolin. 2. Acyclovir. 3. Ambien. 4. Ibuprofen. 5. Hydrochlorothiazide. 6. Metformin. 7. Amlodipine. 8. Lisinopril. PHYSICAL EXAMINATION GENERAL: Awake, alert, oriented, good historian. HEENT: Atraumatic, normocephalic. Right visual field defect. Intact hearing. NECK: No carotid bruits. No signs of meningeal irritation. HEART: Regular rate and rhythm. LUNGS: Clear to auscultation. No wheezes. ABDOMEN: Soft abdomen. NEUROLOGIC: Awake, alert, oriented to place, person, not to time. Intact naming. Slurred speech. Intact comprehension. Right-sided visual field cut. Intact external ocular motility. Pupils 2 mm bilaterally equal. Moves all extremities. [id number]-xy-[id number] intact. Reflexes 2+ bilaterally symmetrical. IMAGING - Head CT scan without contrast was negative for hemorrhage or acute process. - MRI brain with scattered area of restricted diffusion in bilateral cerebellar hemispheres, left occipital lobe and left thalamus. - Head CTA: No major branch vessel occlusion. - Neck CTA: Calcified atherosclerosis of the left carotid bifurcation causing some focal mild narrowing of the origin of the left ICA, 40-50%. Mild atherosclerotic plaquing of the right carotid bifurcation. No focal or significant stenosis demonstrated. Dominant right vertebral artery flow. IMPRESSION AND RECOMMENDATIONS - Acute ischemic stroke. NIH Stroke Scale 5. Head CT scan is unremarkable for blood, normotensive, no specific contraindication to TPA within the therapeutic window. INR 1, platelet count 433. Thus she is deemed a candidate for IV TPA. - A thorough explanation for TPA benefits and risks were relayed to her. She agrees on the TPA. - I have discussed the case with Dr. Welch, the attending emergency physician, and we agree on the plan. The patient was given TPA, admitted to the ICU. - Goal blood pressure is less than 180/105 for the next 24 hours. - No aspirin, Plavix or anticoagulants. - Repeat CT 24 hours later. - DVT prophylaxis with SCDs. - Neuro-checks q.1h. - Cardiac echo. Thank you for the opportunity to participate in the care of your patient. MD LEO Martinez/BUDDY /2:13 PM /2:28 PM GARTH
[2017-02-26] MEDS ORDERED: MORPHINE SULFATE 2 MG/ML INJ IV PUSH ONE (15:30)
[2017-02-26] MEDS ORDERED: MISCELLANEOUS NURSING INFORMATION XX SCH (15:45)
[2017-02-26] MEDS ORDERED: MAGNESIUM HYDROXIDE SUSP 30 ML CUP PO PRN (15:45)
[2017-02-26] MEDS ORDERED: ACETAMINOPHEN 325 MG TAB PO PRN (15:45)
[2017-02-26] MEDS ORDERED: BISACODYL 10 MG SUPP RECTAL PRN (15:45)
[2017-02-26] MEDS ORDERED: LACTULOSE SYRUP 20 GM/30 ML CUP PO PRN (15:45)
[2017-02-26] MEDS ORDERED: RESP: ALBUTEROL 2.5 MG/IPRATROPIUM 0.5 MG NEB (PRN) INH (15:45)
[2017-02-26] MEDS ORDERED: SENNOSIDES 8.6 MG TAB PO PRN (15:45)
[2017-02-26] MEDS ORDERED: ONDANSETRON HCL 4 MG/2 ML VIAL IV PUSH PRN (15:45)
[2017-02-26] MEDS ORDERED: MORPHINE SULFATE 4 MG/ML INJ IV PUSH PRN (15:45)
[2017-02-26] MEDS ORDERED: CHLORHEXIDINE GLUCONATE 2 % 1 PACK (2 CLOTHS) TOP PRN (15:45)
--- NOTE | 2017-02-26 16:08 | RADRPT ---
EXAM DATE/TIME: 02/26/2017 15:45 [facility] COMPARISON: CT BRAIN W/O CONTRAST, February 26, 2017, 12:04. INDICATIONS : Post TPA, Blurred vision, slurred speech, headache. RADIATION DOSE: 38.86 CTDIvol (mGy) MEDICAL HISTORY : Cardiovascular disease. Hypertension. diabetes SURGICAL HISTORY : Tubal ligation. ENCOUNTER: Initial ACUITY: 1 day PAIN SCALE: 4/10 LOCATION: cranial TECHNIQUE: Multiple contiguous axial images were obtained of the head. Using automated exposure control and adj ustment of the mA and/or kV according to patient size, radiation dose was kept as low as reasonably a chievable to obtain optimal diagnostic quality images. DICOM format image data is available electro nically for review and comparison. FINDINGS: CEREBRUM: The ventricles are normal for age. No evidence of midline shift, mass lesion, hemorrhage or acute in farction. No extra-axial fluid collections are seen. POSTERIOR FOSSA: The cerebellum and brainstem are intact. The 4th ventricle is midline. The cerebellopontine angle i s unremarkable. EXTRACRANIAL: The visualized portion of the orbits is intact. SKULL: The calvaria is intact. No evidence of skull fracture. CONCLUSION: 1. No acute intracranial abnormality. In particular, no acute hemorrhage. Edy Escobar Jr., MD on February 26, 2017 at 16:04 Board Certified Radiologist. This report was verified electronically.
[2017-02-26] MEDS ORDERED: GLUCAGON 1 MG/ML VIAL OTHER PRN (17:00)
[2017-02-26] MEDS ORDERED: DEXTROSE 50% IN WATER 50 ML VIAL(D50) IV PUSH PRN (17:00)
--- NOTE | 2017-02-26 17:02 | HHI.HP ---
[facility] Service Critical Care Medicine Primary Care Physician Chago Riggs MD Admission Diagnosis Acute CVA Diagnosis: (1) Acute CVA (cerebrovascular accident) Diagnosis: Principal (2) HTN (hypertension) Diagnosis: Principal Chief Complaint: Headache, slurred speech, vision changes Travel History International Travel<30 Days: No Contact w/Intl Traveler <30 Da: No Traveled to Known Affected Are: No History of Present Illness 56 y/o woman presents to ED with slurred speech and vision deficit right eye. BP 163/99, P 80s, regular. CT head normal. Received tPA after review by Dr. Santizo. Speech initially improved but deficit returned. Repeat head CT normal, no bleed. Review of Systems ROS No chest pain or SOB. Past Family Social History Allergies: Coded Allergies: cefuroxime (Verified Allergy, Mild, Rash, 02/26/17) itchy rash on arms and legs Past Medical History Past Medical History Hx Anticoagulant Therapy: Yes (ASA) Arthritis: Yes Asthma: Yes Blood Disorders: No Depression: Yes Cancer: No Cardiac Catheterization: Yes Cardiovascular Problems: Yes Chest Pain: Yes Diabetes: Yes Diminished Hearing: No Gastrointestinal Disorders: Yes GERD: Yes Glaucoma: Yes Genitourinary: No Headaches: No Hypertension: Yes Immune Disorder: No Musculoskeletal: Yes Neurologic: Yes (PHERIPHERAL NEUROPATHY) Psychiatric: Yes Respiratory: Yes Immunizations Current: No : 3 Para: 2 Miscarriage: 1 : 0 Tubal Ligation: Yes Past Surgical History Abdominal Surgery: No AICD: No Cardiac Surgery: No Coronary Stent: Yes (LEFT CIRCUMFLEX 2005) Ear Surgery: No Endocrine Surgery: No Eye Surgery: No Genitourinary Surgery: No Gynecologic Surgery: No Joint Replacement: No Oral Surgery: No Pacemaker: No Thoracic Surgery: No Social History Alcohol Use: No Tobacco Use: No (QUIT 1999) Substance Use: No Allergies-Medications Allergies-Medications (Allergen,Severity, Reaction): Coded Allergies: cefuroxime (Verified Allergy, Mild, Rash, 02/26/17) itchy rash on arms and legs Reported Meds & Prescriptions Reported Meds & Active Scripts Active Ventolin Hfa 18 GM Inh (Albuterol Sulfate) 90 Mcg/Act Aer 2 Puff INH Q4-6H PRN Acyclovir 200 Mg Cap 200 Mg PO 5 TIMES A DAY Ambien (Zolpidem Tartrate) 10 Mg Tab 10 Mg PO HS PRN Ibuprofen 600 Mg Tab 600 Mg PO Q8HR PRN Hydrochlorothiazide 25 Mg Tab 25 Mg PO DAILY Metformin (Metformin HCl) 500 Mg Tab 500 Mg PO BIDPC With meals Amlodipine (Amlodipine Besylate) 5 Mg Tab 5 Mg PO DAILY Lisinopril 40 Mg Tab 40 Mg PO DAILY Physical Exam Vital Signs Vital Signs Date Time Temp Pulse Resp B/P (MAP) Pulse Ox O2 Delivery O2 Flow Rate FiO2 02/26/17 16:14 77 18 156/95 (115) 98 Nasal Cannula 2.00 02/26/17 15:59 83 18 157/83 (107) 99 Nasal Cannula 2.00 02/26/17 15:44 76 18 160/99 (119) 97 Nasal Cannula 2.00 02/26/17 15:29 89 18 163/99 (120) 98 Nasal Cannula 2.00 02/26/17 15:14 87 18 149/85 (106) 98 Nasal Cannula 2.00 02/26/17 14:59 89 18 135/73 (93) 98 Nasal Cannula 2.00 02/26/17 14:44 88 18 132/67 (88) 98 Nasal Cannula 2.00 02/26/17 14:29 87 18 171/81 (111) 98 Nasal Cannula 2.00 02/26/17 14:15 86 18 154/109 (124) 99 Nasal Cannula 2.00 02/26/17 13:47 89 18 170/89 (116) 100 Room Air 02/26/17 12:41 99 Nasal Cannula 2.00 02/26/17 12:03 91 18 98 Room Air 02/26/17 11:27 98.4 97 16 150/88 (108) 99 Physical Exam P 82, BP 177/92, R 16 nonlabored, sats 100% Head: Atraumatic. Neck: Supple, airway widely patent. Lungs: Clear, no adventitious sounds. Heart: NL S1S2, RRR, No JVD. Abdomen: Benign, soft. BS active. Extremities: Warm, well perfused. Neuro: Visual field defect right eye. Moves 4 limbs with strength. Sensation intact. Swallows oral secretions, protects airway. Laboratory Laboratory Tests Test 02/26/17 12:10 02/26/17 12:56 White Blood Count 19.1 Red Blood Count 4.84 Hemoglobin 14.5 Bedside Hemoglobin 14.6 Hematocrit 41.9 Bedside Hematocrit 43.0 Mean Corpuscular Volume 86.6 Mean Corpuscular Hemoglobin 30.0 Mean Corpuscular Hemoglobin Concent 34.7 Red Cell Distribution Width 14.3 Platelet Count 433 Mean Platelet Volume 7.6 Neutrophils (%) (Auto) 76.4 Lymphocytes (%) (Auto) 17.6 Monocytes (%) (Auto) 5.7 Eosinophils (%) (Auto) 0.2 Basophils (%) (Auto) 0.1 Neutrophils # (Auto) 14.6 Lymphocytes # (Auto) 3.4 Monocytes # (Auto) 1.1 Eosinophils # (Auto) 0.0 Basophils # (Auto) 0.0 CBC Comment AUTO DIFF Differential Total Cells Counted 100 Neutrophils % (Manual) 75 Band Neutrophils % 1 Lymphocytes % 13 Monocytes % 7 Neutrophils # (Manual) 15.3 Myelocytes 4 Differential Comment FINAL DIFF MANUAL Platelet Estimate NORMAL Platelet Morphology Comment NORMAL Bedside Sodium 130 Bedside Potassium 3.7 Bedside Chloride 93 Bedside Blood Urea Nitrogen 27 Bedside Creatinine 1.0 Bedside Glucose 277 Total Creatine Kinase 207 Creatine Kinase MB 5.8 Creatine Kinase MB % 2.8 Prothrombin Time 10.4 Prothromb Time International Ratio 1.0 Activated Partial Thromboplast Time 18.1 Result Diagram: 02/26/17 1210 Caprini VTE Risk Assessment Caprini VTE Risk Assessment: Mod/High Risk (score >= 2) Caprini Risk Assessment Model Point Value = 1 Point Value = 2 Point Value = 3 Point Value = 5 Age 41-60 Minor surgery BMI > 25 kg/m2 Swollen legs Varicose veins or History of unexplained or recurrent spontaneous Oral contraceptives or hormone replacement Sepsis (< 1 month) Serious lung disease, including pneumonia (< 1 month) Abnormal pulmonary function Acute myocardial infarction Congestive heart failure (< 1 month) History of inflammatory bowel disease Medical patient at bed rest Age 61-74 Arthroscopic surgery Major open surgery (> 45 min) Laparoscopic surgery (> 45 min) Malignancy Confined to bed (> 72 hours) Immobilizing plaster cast Central venous access Age >= 75 History of VTE Family history of VTE Factor V Leiden Prothrombin [id number] Lupus anticoagulant Anticardiolipin antibodies Elevated serum homocysteine Heparin-induced thrombocytopenia Other congenital or acquired thrombophilia Stroke (< 1 month) Elective arthroplasty Hip, pelvis, or leg fracture Acute spinal cord injury (< 1 month) Prophylaxis Regimen Total Risk Factor Score Risk Level Prophylaxis Regimen 0-1 Low Early ambulation 2 Moderate Order ONE of the following: *Sequential Compression Device (SCD) *Heparin 5000 units SQ BID 3-4 Higher Order ONE of the following medications: *Heparin 5000 units SQ TID *Enoxaparin/Lovenox 40 mg SQ daily (WT < 150 kg, CrCl > 30 mL/min) *Enoxaparin/Lovenox 30 mg SQ daily (WT < 150 kg, CrCl > 10-29 mL/min) *Enoxaparin/Lovenox 30 mg SQ BID (WT < 150 kg, CrCl > 30 mL/min) AND/OR *Sequential Compression Device (SCD) 5 or more Highest Order ONE of the following medications: *Heparin 5000 units SQ TID (Preferred with Epidurals) *Enoxaparin/Lovenox 40 mg SQ daily (WT < 150 kg, CrCl > 30 mL/min) *Enoxaparin/Lovenox 30 mg SQ daily (WT < 150 kg, CrCl > 10-29 mL/min) *Enoxaparin/Lovenox 30 mg SQ BID (WT < 150 kg, CrCl > 30 mL/min) AND *Sequential Compression Device (SCD) Assessment and Plan Problem List: (1) Acute CVA (cerebrovascular accident) ICD Code: I63.9 - Cerebral infarction, unspecified Status: Acute (2) HTN (hypertension) ICD Code: I10 - Essential (primary) hypertension Status: Acute Assessment and Plan Assessment: 1. Acute ischemic stroke. 2. Right eye visual field defect. 3. Hypertension. Plan: 1. Post tPA protocol. 2. Pepcid bid. 3. Swallow eval. 4. Maintain SBP < 180, DBP < 100 5. No chemical DVT px. 6. PT, OT evaluation. 7. Repeat Head CT in a.m. Overall impression: Acute CVA preceded by episodes of transient right eye visual field defects for one day prior. Concern is for extracranial cervical occlusive disease. Problem Qualifiers (1) HTN (hypertension): Qualified Codes: I10 - Essential (primary) hypertension Buck Painting MD Feb 26, 2017 17:02
[2017-02-26] MEDS ORDERED: LABETALOL HCL 100 MG/20 ML VIAL IV PUSH PRN (17:30)
[2017-02-26] MEDS ORDERED: LISINOPRIL 20 MG TAB PO ONE (17:30)
[2017-02-26] MEDS: INSULIN ASPART SUPPLEMENTAL SCALE SQ SCH (18:45)
--- NOTE | 2017-02-26 19:29 | RADRPT ---
EXAM DATE/TIME: 02/26/2017 18:46 [facility] COMPARISON: No previous studies available for comparison. INDICATIONS : Neuro status change. Post TPA. RADIATION DOSE: 51.17 CTDIvol (mGy) MEDICAL HISTORY : Cardiovascular disease. Hypertension. Diabetes mellitus type 2. SURGICAL HISTORY : Tubal ligation. ENCOUNTER: Subsequent ACUITY: 1 day PAIN SCALE: 0/10 LOCATION: cranial TECHNIQUE: Multiple contiguous axial images were obtained of the head. Using automated exposure control and adj ustment of the mA and/or kV according to patient size, radiation dose was kept as low as reasonably a chievable to obtain optimal diagnostic quality images. DICOM format image data is available electro nically for review and comparison. FINDINGS: There is some low attenuation in the cerebellar hemispheres bilaterally and also extending into both occipital lobes most characteristic of evolving infarcts. Localized mild mass effect. No midline shif t. No acute hemorrhage. Chronic white matter ischemic changes. CONCLUSION: Evolving infarcts in both cerebellar hemispheres and occipital lobes with chronic white matter change s as well. No new hemorrhage. Charles Moctezuma MD on February 26, 2017 at 19:23 Board Certified Radiologist. This report was verified electronically.
[2017-02-26] MEDS: DOCUSATE SODIUM 50 MG/SENNA 8.6 MG TAB PO SCH (20:10)
[2017-02-26] MEDS: FAMOTIDINE 20 MG/2 ML VIAL IV PUSH SCH (21:00)
[2017-02-27] VITALS (11 sets, daily range): BP systolic 140–183; BP diastolic 67–89; PULSE 59–89; RESP 14–26; TEMP 97–98.7; O2SAT 94–99
[2017-02-27] MEDS: CHLORHEXIDINE GLUCONATE 2 % 1 PACK (2 CLOTHS) TOP SCH (03:34)
[2017-02-27] MEDS: INSULIN ASPART SUPPLEMENTAL SCALE SQ SCH ×4 (06:00→17:51)
--- NOTE | 2017-02-27 08:54 | HHI.PR ---
Review/Management Diagnosis - Acute ischemic stroke. s/p tPA - Right ICA stenosis Plan - Goal blood pressure is less than 180/105 for the next 24 hours. - No aspirin, Plavix or anticoagulants. - Repeat CT 24 hours . - DVT prophylaxis with SCDs. - Neuro-checks q.1h. - Cardiac echo. - GI prophylaxis Diagnosis/Plan: Subjective Subjective Comments Patient complains fo headache Follow up head CT scan with no evidence of intracranial bleeding, however, evolving b/l occipital ischemic stroke , daughter and son at the bed side Active Medications Current Medications Medications (Trade) Dose Ordered Sig/Rama Route Start Time Stop Time Status Last Admin Miscellaneous Information No Heparin, Warfarin, Aspir... UNSCH PRN XX 02/26/17 13:45 02/27/17 13:44 (Tylenol) 650 mg Q6H PRN PO 02/26/17 15:45 (Morphine Inj) 2 mg Q2H PRN IV PUSH 02/26/17 15:45 (Pepcid Inj) 20 mg Q12HR IV PUSH 02/26/17 21:00 02/26/17 21:00 (Zofran Inj) 4 mg Q6H PRN IV PUSH 02/26/17 15:45 (Duoneb Neb) 1 ampule Q4HR NEB PRN INH 02/26/17 15:45 Miscellaneous Information 1 Q361D XX 02/26/17 15:45 02/26/17 15:45 (Chlorhexidine 2% Cloth) 3 pack Taper DAILY@04 TOP 02/27/17 04:00 02/23/18 03:59 (Chlorhexidine 2% Cloth) 3 pack UNSCH PRN TOP 02/26/17 15:45 (Daina-Colace) 1 tab BID PO 02/26/17 21:00 (Milk Of Magnesia Liq) 30 ml Q12H PRN PO 02/26/17 15:45 (Senokot) 17.2 mg Q12H PRN PO 02/26/17 15:45 (Dulcolax Supp) 10 mg DAILY PRN RECTAL 02/26/17 15:45 (Lactulose Liq) 30 ml DAILY PRN PO 02/26/17 15:45 (Hydrodiuril) 25 mg DAILY PO 02/27/17 09:00 (D50w (Vial) Inj) 50 ml UNSCH PRN IV PUSH 02/26/17 17:00 (Glucagon Inj) 1 mg UNSCH PRN OTHER 02/26/17 17:00 (NovoLOG SUPPLEMENTAL SCALE) 1 Q6H SQ 02/26/17 18:00 02/27/17 06:00 (Trandate Inj) 20 mg Q1H PRN IV PUSH 02/26/17 17:30 Allergies Allergies Coded Allergies cefuroxime (Verified Allergy, Mild, Rash, 02/26/17) Review of Systems All other ROS: ROS reviewed as documented in chart Exam I&O / VS 02/27/17 02/27/17 02/28/17 15:00 23:00 07:00 Intake Total 0 ml Output Total 0 ml Balance 0 ml Intake Oral 0 ml Output Urine Total 0 ml Vital Signs Date Time Temp Pulse Resp B/P (MAP) Pulse Ox O2 Delivery O2 Flow Rate FiO2 02/27/17 07:30 97 21 02/27/17 07:28 76 02/27/17 04:00 98.7 72 24 150/80 (103) 99 02/27/17 04:00 79 02/27/17 02:00 63 02/27/17 01:49 98.0 86 22 158/85 (109) 99 02/27/17 00:00 88 02/27/17 00:00 97.8 88 26 143/67 (92) 94 02/26/17 23:00 65 02/26/17 23:00 97.9 65 20 158/89 (112) 97 02/26/17 22:58 97.8 62 22 158/74 (102) 99 02/26/17 22:00 64 02/26/17 20:02 100 Nasal Cannula 2.00 02/26/17 20:00 78 02/26/17 20:00 96 Nasal Cannula 2.00 02/26/17 18:00 72 02/26/17 18:00 97.6 78 14 157/96 (116) 97 02/26/17 17:06 100 Nasal Cannula 2.00 02/26/17 17:00 97.6 79 17 169/88 (115) 98 02/26/17 16:45 97.6 75 12 173/81 (111) 100 02/26/17 16:14 77 18 156/95 (115) 98 Nasal Cannula 2.00 02/26/17 15:59 83 18 157/83 (107) 99 Nasal Cannula 2.00 02/26/17 15:44 76 18 160/99 (119) 97 Nasal Cannula 2.00 02/26/17 15:29 89 18 163/99 (120) 98 Nasal Cannula 2.00 02/26/17 15:14 87 18 149/85 (106) 98 Nasal Cannula 2.00 02/26/17 14:59 89 18 135/73 (93) 98 Nasal Cannula 2.00 02/26/17 14:44 88 18 132/67 (88) 98 Nasal Cannula 2.00 02/26/17 14:29 87 18 171/81 (111) 98 Nasal Cannula 2.00 02/26/17 14:15 86 18 154/109 (124) 99 Nasal Cannula 2.00 02/26/17 13:47 89 18 170/89 (116) 100 Room Air 02/26/17 12:41 99 Nasal Cannula 2.00 02/26/17 12:03 91 18 98 Room Air 02/26/17 11:27 98.4 97 16 150/88 (108) 99 General: Alert and Oriented Eye: Other (b/l visual field defects) Respiratory: Lungs CTA, Non-labored respirations Cardiology: Normal rate, No murmur Neurologic: Alert, Oriented, Other (b/l visual field defects, right > left) Objective Radiology Results Last [address] 02/27/17 0000 Signed Impressions: Service Date/Time: Monday, February 27, 2017 12:45 - CONCLUSION: 1. Evolving posterior fossa and bilateral occipital lobe infarcts. No new hemorrhage. Charles Moctezuma MD Head CT 02/26/17 1453 Signed Impressions: Service Date/Time: Sunday, February 26, 2017 15:45 - CONCLUSION: 1. No acute intracranial abnormality. In particular, no acute hemorrhage. Edy Escobar Jr., MD Brain MRI 02/26/17 1254 Signed Impressions: Service Date/Time: Sunday, February 26, 2017 13:16 - CONCLUSION: Scattered areas of restricted diffusion anomaly posterior fossa and left occipital lobe. Findings would be consistent with emboli. Yfn Norton MD FACR Neck CTA 02/26/17 1210 Signed Impressions: Service Date/Time: Sunday, February 26, 2017 12:14 - CONCLUSION: 1. There is calcified atherosclerotic plaquing at the left carotid bifurcation causing some focal mild narrowing at the origin of the left internal carotid artery of approximately 40-50%%. 2. There is mild atherosclerotic plaquing at the right carotid bifurcation. No focal or significant stenosis is demonstrated. 3. Dominant right vertebral artery. Escobar Dailey MD Head CTA 02/26/17 1210 Signed Impressions: Service Date/Time: Sunday, February 26, 2017 12:14 - CONCLUSION: No major branch vessel occlusion. Yfn Nroton MD FACR Head CT 02/26/17 0000 Signed Impressions: Service Date/Time: Sunday, February 26, 2017 18:46 - CONCLUSION: Evolving infarcts in both cerebellar hemispheres and occipital lobes with chronic white matter changes as well. No new hemorrhage. Charles Moctezuma MD Head CT 02/26/17 0000 Signed Impressions: Service Date/Time: Sunday, February 26, 2017 12:04 - CONCLUSION: Negative for hemorrhage or acute process. Yfn Norton MD FACR Micro and Labs Laboratory Tests Test 02/26/17 12:10 02/26/17 12:56 White Blood Count 19.1 Red Blood Count 4.84 Hemoglobin 14.5 Bedside Hemoglobin 14.6 Hematocrit 41.9 Bedside Hematocrit 43.0 Mean Corpuscular Volume 86.6 Mean Corpuscular Hemoglobin 30.0 Mean Corpuscular Hemoglobin Concent 34.7 Red Cell Distribution Width 14.3 Platelet Count 433 Mean Platelet Volume 7.6 Neutrophils (%) (Auto) 76.4 Lymphocytes (%) (Auto) 17.6 Monocytes (%) (Auto) 5.7 Eosinophils (%) (Auto) 0.2 Basophils (%) (Auto) 0.1 Neutrophils # (Auto) 14.6 Lymphocytes # (Auto) 3.4 Monocytes # (Auto) 1.1 Eosinophils # (Auto) 0.0 Basophils # (Auto) 0.0 CBC Comment AUTO DIFF Differential Total Cells Counted 100 Neutrophils % (Manual) 75 Band Neutrophils % 1 Lymphocytes % 13 Monocytes % 7 Neutrophils # (Manual) 15.3 Myelocytes 4 Differential Comment FINAL DIFF MANUAL Platelet Estimate NORMAL Platelet Morphology Comment NORMAL Bedside Sodium 130 Bedside Potassium 3.7 Bedside Chloride 93 Bedside Blood Urea Nitrogen 27 Bedside Creatinine 1.0 Bedside Glucose 277 Total Creatine Kinase 207 Creatine Kinase MB 5.8 Creatine Kinase MB % 2.8 Prothrombin Time 10.4 Prothromb Time International Ratio 1.0 Activated Partial Thromboplast Time 18.1 Moises Santizo MD Feb 27, 2017 08:54
[2017-02-27] MEDS: HYDROCHLOROTHIAZIDE 25 MG TAB PO SCH (09:00)
[2017-02-27] MEDS: FAMOTIDINE 20 MG/2 ML VIAL IV PUSH SCH ×2 (09:00→22:55)
[2017-02-27] MEDS: DOCUSATE SODIUM 50 MG/SENNA 8.6 MG TAB PO SCH ×2 (09:00→21:00)
--- NOTE | 2017-02-27 12:48 | HHI.CCPN ---
Subjective Remarks/Hospital Course 56 y/o woman presents to ED with slurred speech and vision deficit right eye. BP 163/99, P 80s, regular. CT head normal. Received tPA after review by Dr. Santizo. Speech initially improved but deficit returned. Repeat head CT normal, no bleed. 02/27: Continued visual deficits. Follows commands. Restless and agitated, unable to control her - will require low dose precedex. Objective Vital Signs Date Time Temp Pulse Resp B/P (MAP) Pulse Ox O2 Delivery O2 Flow Rate FiO2 02/27/17 12:00 87 02/27/17 12:00 97.0 14 140/69 (92) 97 02/27/17 08:00 Room Air 02/27/17 07:30 21 02/26/17 20:02 2.00 Intake and Output 02/27/17 02/27/17 02/28/17 08:00 16:00 00:00 Intake Total 1000 ml Output Total 0 ml Balance 1000 ml Result Diagram: 02/26/17 1210 Objective Remarks Gen: Protects airway. Head: Atraumatic. Neck: Supple, airway widely patent. Lungs: Clear, no adventitious sounds. Heart: NL S1S2, RRR, No JVD. Abdomen: Benign, soft. BS active. Extremities: Warm, well perfused. Neuro: Visual field defect right eye. Moves 4 limbs with strength. Sensation intact. Swallows oral secretions, protects airway. A/P Problem List: (1) Acute CVA (cerebrovascular accident) ICD Code: I63.9 - Cerebral infarction, unspecified Status: Acute (2) HTN (hypertension) ICD Code: I10 - Essential (primary) hypertension Status: Acute Assessment and Plan Assessment: 1. Acute ischemic stroke. 2. Right eye visual field defect. 3. Hypertension. Plan: 1. Post tPA protocol. 2. Pepcid bid. 3. Swallow eval. 4. Maintain SBP < 180, DBP < 100 5. No chemical DVT px. 6. PT, OT evaluation. 7. Repeat Head CT in a.m. Overall impression: Acute CVA preceded by episodes of transient right eye visual field defects for one day prior. Some waxing and waning. Concern is for extracranial cervical occlusive disease. Buck Painting MD Feb 27, 2017 12:48
--- NOTE | 2017-02-27 13:21 | RADRPT ---
EXAM DATE/TIME: 02/27/2017 12:45 [facility] COMPARISON: No previous studies available for comparison. INDICATIONS : Post TBA, altered mental status. RADIATION DOSE: 29.20 CTDIvol (mGy) MEDICAL HISTORY : Cardiovascular disease. Hypertension. Diabetes SURGICAL HISTORY : Tubal ligation. ENCOUNTER: Initial ACUITY: 1 day PAIN SCALE: Non-responsive LOCATION: cranial TECHNIQUE: Multiple contiguous axial images were obtained of the head. Using automated exposure control and adj ustment of the mA and/or kV according to patient size, radiation dose was kept as low as reasonably a chievable to obtain optimal diagnostic quality images. DICOM format image data is available electro nically for review and comparison. FINDINGS: Again seen are evolving infarcts in both cerebellar hemispheres, right middle cerebellar peduncle and in both occipital lobes with localized mass effect and sulcal effacement. No midline shift. No assoc iated hemorrhage. CONCLUSION: 1. Evolving posterior fossa and bilateral occipital lobe infarcts. No new hemorrhage. Charles Moctezuma MD on February 27, 2017 at 13:16 Board Certified Radiologist. This report was verified electronically.
[2017-02-27] MEDS ORDERED: DEXMEDETOMIDINE HCL 200 MCG/2 ML VIAL IV PUSH ONE (16:15)
[2017-02-27] MEDS: DEXMEDETOMIDINE INJ 200 MCG in SODIUM CHLORIDE 0.9% INJ 50 ML IV PRN ×3 (16:30→23:48)
--- NOTE | 2017-02-27 17:46 | EKG ---
Date Performed: 02/26/2017 Time Performed: 13:42:46 PTAGE: 56 years EKG: Sinus rhythm MARKED LEFT AXIS DEVIATION NONSPECIFIC T-WAVE ABNORMALITY ABNORMAL ECG PREVIOUS TRACING : 02/14/2017 18.50 DOCTOR: Ted Shaw Interpretating Date/Time 02/27/2017 17:38:17
[2017-02-27 19:26] LABS: AMORPHOUS SEDIMENT, URINE RARE; BILIRUBIN, URINE NEG (NEG); BLOOD, URINE LARGE (NEG); GLUCOSE,URINE 1000 mg/dL (NEG); KETONE, URINE 40 mg/dL (NEG); MUCUS URINE MANY /lpf (OCC); NITRITE,URINE NEG (NEG); URINE COLOR YELLOW (YELLW/STRAW); URINE LEUKOCYTE ESTERASE MOD (NEG)
[2017-02-28] VITALS (13 sets, daily range): BP systolic 139–163; BP diastolic 70–78; PULSE 51–90; RESP 14–27; TEMP 97.8–99.2; O2SAT 94–98
[2017-02-28] MEDS: CHLORHEXIDINE GLUCONATE 2 % 1 PACK (2 CLOTHS) TOP SCH (03:32)
[2017-02-28] MEDS: DEXMEDETOMIDINE INJ 200 MCG in SODIUM CHLORIDE 0.9% INJ 50 ML IV PRN (03:33)
[2017-02-28 05:47] LABS: BICARBONATE 26.5 MEQ/L (21.0-32.0); CALCIUM 8.8 MG/DL (8.5-10.1); CREATININE 0.68 MG/DL (0.50-1.00)
[2017-02-28] MEDS: INSULIN ASPART SUPPLEMENTAL SCALE SQ SCH ×4 (06:00→17:59)
[2017-02-28] MEDS: HYDROCHLOROTHIAZIDE 25 MG TAB PO SCH (09:00)
[2017-02-28] MEDS: DOCUSATE SODIUM 50 MG/SENNA 8.6 MG TAB PO SCH ×2 (09:00→21:00)
--- NOTE | 2017-02-28 09:17 | HHI.PR ---
Review/Management Diagnosis - Acute ischemic stroke. s/p tPA - Right ICA stenosis Plan -Neuro checks every hour only - Goal blood pressure is 130-135/75-80 - No aspirin, Plavix or anticoagulants. - CTA head - CTA neck - Hematology consult - DVT prophylaxis with SCDs. - Neuro-checks q.1h. - Cardiac echo. - GI prophylaxis - Dr. Andre Myrick will follow up Diagnosis/Plan: Subjective Subjective Comments Patient was reportedly agitated last night Received 1 dose of morphine Head CT scan with evolving right occipital stroke Family at bedside Lays calm in bed Active Medications Current Medications Medications (Trade) Dose Ordered Sig/Rama Route Start Time Stop Time Status Last Admin (Tylenol) 650 mg Q6H PRN PO 02/26/17 15:45 (Morphine Inj) 2 mg Q2H PRN IV PUSH 02/26/17 15:45 (Pepcid Inj) 20 mg Q12HR IV PUSH 02/26/17 21:00 02/27/17 22:55 (Zofran Inj) 4 mg Q6H PRN IV PUSH 02/26/17 15:45 (Duoneb Neb) 1 ampule Q4HR NEB PRN INH 02/26/17 15:45 Miscellaneous Information 1 Q361D XX 02/26/17 15:45 02/26/17 15:45 (Chlorhexidine 2% Cloth) 3 pack Taper DAILY@04 TOP 02/27/17 04:00 02/23/18 03:59 (Chlorhexidine 2% Cloth) 3 pack UNSCH PRN TOP 02/26/17 15:45 (Daina-Colace) 1 tab BID PO 02/26/17 21:00 (Milk Of Magnesia Liq) 30 ml Q12H PRN PO 02/26/17 15:45 (Senokot) 17.2 mg Q12H PRN PO 02/26/17 15:45 (Dulcolax Supp) 10 mg DAILY PRN RECTAL 02/26/17 15:45 (Lactulose Liq) 30 ml DAILY PRN PO 02/26/17 15:45 (Hydrodiuril) 25 mg DAILY PO 02/27/17 09:00 (D50w (Vial) Inj) 50 ml UNSCH PRN IV PUSH 02/26/17 17:00 (Glucagon Inj) 1 mg UNSCH PRN OTHER 02/26/17 17:00 (NovoLOG SUPPLEMENTAL SCALE) 1 Q6H SQ 02/26/17 18:00 02/28/17 06:00 (Trandate Inj) 20 mg Q1H PRN IV PUSH 02/26/17 17:30 Dexmedetomidine HCl 200 mcg/ Sodium Chloride 52 ml @ 4.28 mls/hr TITRATE PRN IV 02/27/17 16:15 02/28/17 03:33 Allergies Allergies Coded Allergies cefuroxime (Verified Allergy, Mild, Rash, 02/26/17) Review of Systems All other ROS: ROS reviewed as documented in chart Exam I&O / VS Vital Signs Date Time Temp Pulse Resp B/P (MAP) Pulse Ox O2 Delivery O2 Flow Rate FiO2 02/28/17 07:00 98 Room Air 02/28/17 06:39 55 02/28/17 04:24 97.8 52 27 143/71 (95) 94 02/28/17 04:00 54 02/28/17 02:00 51 02/28/17 00:00 56 02/28/17 00:00 98.7 52 23 139/70 (93) 94 02/27/17 20:15 95 21 02/27/17 20:00 Room Air 02/27/17 20:00 98.2 59 23 142/70 (94) 95 02/27/17 16:00 89 02/27/17 16:00 98.4 89 19 176/89 (118) 98 02/27/17 12:00 87 02/27/17 12:00 97.0 87 14 140/69 (92) 97 Neurologic: Other (b/l visual field defects, right > left) Objective Radiology Results Last 72 hours Impressions Neck CTA 02/28/17 0000 Signed Impressions: Service Date/Time: Tuesday, February 28, 2017 10:57 - CONCLUSION: Stable CT of the head and neck with 40-50%% stenosis left internal carotid artery without thrombosis. Yfn Norton MD FACR Head CTA 02/28/17 0000 Signed Impressions: Service Date/Time: Tuesday, February 28, 2017 10:57 - CONCLUSION: 1. Unremarkable and stable CTA the brain compared to the prior examination. No definite vascular occlusion. Escobar Dailey MD Head CT 02/27/17 0000 Signed Impressions: Service Date/Time: Monday, February 27, 2017 12:45 - CONCLUSION: 1. Evolving posterior fossa and bilateral occipital lobe infarcts. No new hemorrhage. Charles Moctezuma MD Head CT 02/26/17 1453 Signed Impressions: Service Date/Time: Sunday, February 26, 2017 15:45 - CONCLUSION: 1. No acute intracranial abnormality. In particular, no acute hemorrhage. Edy Escobar Jr., MD Brain MRI 02/26/17 1254 Signed Impressions: Service Date/Time: Sunday, February 26, 2017 13:16 - CONCLUSION: Scattered areas of restricted diffusion anomaly posterior fossa and left occipital lobe. Findings would be consistent with emboli. Yfn Norton MD FACR Neck CTA 02/26/17 1210 Signed Impressions: Service Date/Time: Sunday, February 26, 2017 12:14 - CONCLUSION: 1. There is calcified atherosclerotic plaquing at the left carotid bifurcation causing some focal mild narrowing at the origin of the left internal carotid artery of approximately 40-50%%. 2. There is mild atherosclerotic plaquing at the right carotid bifurcation. No focal or significant stenosis is demonstrated. 3. Dominant right vertebral artery. Escobar Dailey MD Head CTA 02/26/17 1210 Signed Impressions: Service Date/Time: Sunday, February 26, 2017 12:14 - CONCLUSION: No major branch vessel occlusion. Yfn Norton MD FACR Head CT 02/26/17 0000 Signed Impressions: Service Date/Time: Sunday, February 26, 2017 18:46 - CONCLUSION: Evolving infarcts in both cerebellar hemispheres and occipital lobes with chronic white matter changes as well. No new hemorrhage. Charles Moctezuma MD Head CT 02/26/17 0000 Signed Impressions: Service Date/Time: Sunday, February 26, 2017 12:04 - CONCLUSION: Negative for hemorrhage or acute process. Yfn Norton MD FACR Micro and Labs Laboratory Tests Test 02/27/17 18:42 02/28/17 04:22 Urine Color YELLOW Urine Turbidity HAZY Urine pH 6.0 Urine Specific [place] 1.029 Urine Protein 30 Urine Glucose (UA) 1000 Urine Ketones 40 Urine Occult Blood LARGE Urine Nitrite NEG Urine Bilirubin NEG Urine Urobilinogen LESS THAN 2.0 Urine Leukocyte Esterase MOD Urine RBC Urine WBC 44 Urine Amorphous Sediment RARE Urine Mucus MANY Nasal Screen MRSA (PCR) MRSA NOT DETECTED Blood Urea Nitrogen 20 Creatinine 0.68 Random Glucose 171 Calcium Level 8.8 Sodium Level 136 Potassium Level 3.9 Chloride Level 101 Carbon Dioxide Level 26.5 Anion Gap 9 Estimat Glomerular Filtration Rate 90 Moises Santizo MD Feb 28, 2017 09:17
[2017-02-28] MEDS: FAMOTIDINE 20 MG/2 ML VIAL IV PUSH SCH ×2 (10:20→22:12)
[2017-02-28] MEDS ORDERED: IOHEXOL 350 MG/ML 10 ML VIAL (for RAD DIAG) IVCONTRAST ONE (12:00)
--- NOTE | 2017-02-28 12:22 | RADRPT ---
EXAM DATE/TIME: 02/28/2017 10:57 [facility] COMPARISON: CTA BRAIN W 3D RECON, February 26, 2017, 12:14. INDICATIONS : Thrombosis. IV CONTRAST: 84 cc Omnipaque 350 (iohexol) IV RADIATION DOSE: 26.77 CTDIvol (mGy) MEDICAL HISTORY : Diabetes mellitus type 2. Hypertension. Cardiovascular disease SURGICAL HISTORY : Tubal ligation. ENCOUNTER: Initial ACUITY: 1 day PAIN SCALE: 0/10 LOCATION: Bilateral cranial TECHNIQUE: Volumetric scanning was performed using a multi-row detector CT scanner. The data was post processed with a variety of visualization algorithms including full volume maximum intensity projection, multi -planar sliding thin slab reformation, curved planar reformation, and surface rendering techniques. Using automated exposure control and adjustment of the mA and/or kV according to patient size, radiat ion dose was kept as low as reasonably achievable to obtain optimal diagnostic quality images. DICO M format image data is available electronically for review and comparison. FINDINGS: There is excellent visualization of the major intracranial arteries out to the second-order branch ve ssels. There is no evidence for aneurysm, vessel truncation or stenosis, and no evidence for vascula r malformation. Stable examination compared to the prior study. CONCLUSION: 1. Unremarkable and stable CTA the brain compared to the prior examination. No definite vascular occl usion. Escobar Dailey MD on February 28, 2017 at 12:17 Board Certified Radiologist. This report was verified electronically.
--- NOTE | 2017-02-28 13:27 | RADRPT ---
EXAM DATE/TIME: 02/28/2017 10:57 [facility] COMPARISON: CTA CAROTID ARTERIES W 3D RECON, February 26, 2017, 12:14 INDICATIONS : Thrombosis. IV CONTRAST: 84 cc Omnipaque 350 (iohexol) IV ; Cumulative dose for multiple exams. RADIATION DOSE: 26.77 CTDIvol (mGy) ; Combined studies - Brain/Cervical Spine MEDICAL HISTORY : Hypertension. Cardiovascular disease Diabetes mellitus type 2. SURGICAL HISTORY : Tubal ligation. ENCOUNTER: Initial ACUITY: 1 day PAIN SCALE: 0/10 LOCATION: Bilateral neck Elevated flow velocities and ICA/CCA ratios have been found to correlate with increased degrees of vessel stenosis, calculated as percentage of diameter relative to a normal segment of distal ICA/CCA. TECHNIQUE: Volumetric scanning was performed using a multirow detector CT scanner. The data was post processed with a variety of visualization algorithms including full-volume maximum intensity projection, multip lanar sliding thin-slab reformation, curved-planar reformation, and surface-rendering techniques. Us ing automated exposure control and adjustment of the mA and/or kV according to patient size, radiatio n dose was kept as low as reasonably achievable to obtain optimal diagnostic quality images. DICOM f ormat image data is available electronically for review and comparison. FINDINGS: AORTIC ARCH: There is a three-vessel origin of the great vessels from the aorta. No evidence of ostial narrowing. RIGHT CAROTID: The common carotid artery is intact. The carotid bulb has a normal configuration without ulceration o r narrowing. The internal carotid artery lumen is smooth without stenosis. The external carotid saravanan ry is intact. LEFT CAROTID: Minimal calcification is seen origin left internal carotid artery. This is stable. There is no thro mbus identified. VERTEBRALS: The vertebral arteries have a symmetric diameter. No stenotic lesions are seen. CONCLUSION: Stable CT of the head and neck with 40-50% stenosis left internal carotid artery without thrombosis. Yfn Norton MD FACR on February 28, 2017 at 13:23 Board Certified Radiologist. This report was verified electronically.
--- NOTE | 2017-02-28 14:30 | HHI.CCPN ---
Subjective Remarks/Hospital Course 56 y/o woman presents to ED with slurred speech and vision deficit right eye. BP 163/99, P 80s, regular. CT head normal. Received tPA after review by Dr. Santizo. Speech initially improved but deficit returned. Repeat head CT normal, no bleed. 02/27: Continued visual deficits. Follows commands. Restless and agitated, unable to control her - will require low dose precedex. 02/28: Patient has evolving posterior fossa and bilateral occipital delma infarcts. Weaned off precedex. Not following commands. Protects airway well. Objective Vital Signs Date Time Temp Pulse Resp B/P (MAP) Pulse Ox O2 Delivery O2 Flow Rate FiO2 02/28/17 12:00 98.1 56 14 163/77 (105) 95 02/28/17 08:14 21 02/28/17 07:00 Room Air 02/26/17 20:02 2.00 Intake and Output 02/28/17 02/28/17 03/01/17 08:00 16:00 00:00 Intake Total 52 ml Output Total 525 ml Balance -473 ml Result Diagram: 02/26/17 1210 02/28/17 0422 Objective Remarks Gen: Protects airway. Head: Atraumatic. Neck: Supple, airway widely patent. Lungs: Clear, no adventitious sounds. Heart: NL S1S2, RRR, No JVD. Abdomen: Benign, soft. BS active. Extremities: Warm, well perfused. Neuro: Visual field deficits - unable to assess today, can not respond. Moves 4 limbs with strength. Sensation intact. Swallows oral secretions, protects airway. A/P Problem List: (1) Acute CVA (cerebrovascular accident) ICD Code: I63.9 - Cerebral infarction, unspecified Status: Acute (2) HTN (hypertension) ICD Code: I10 - Essential (primary) hypertension Status: Acute Assessment and Plan Assessment: 1. Acute ischemic stroke. 2. Right eye visual field defect, possibly left. 3. Hypertension. Plan: 1. Post tPA protocol. 2. Pepcid bid. 3. Swallow eval. 4. Maintain SBP 130s 5. No chemical DVT px., no antiplatelet drugs yet. 6. PT, OT evaluation. 7. Transfer. Overall impression: Acute CVA preceded by episodes of transient right eye visual field defects for one day prior. Some waxing and waning. Concern is for extracranial cervical occlusive disease as possible source. Buck Painting MD Feb 28, 2017 14:30
[2017-03-01] VITALS (12 sets, daily range): BP systolic 137–179; BP diastolic 74–83; PULSE 62–94; RESP 16–25; TEMP 97.5–99.4; O2SAT 96–99
[2017-03-01 05:46] LABS: BICARBONATE 27.3 MEQ/L (21.0-32.0); CREATININE 0.82 MG/DL (0.50-1.00)
[2017-03-01] MEDS: INSULIN ASPART SUPPLEMENTAL SCALE SQ SCH ×5 (06:00→21:00)
[2017-03-01] MEDS: DOCUSATE SODIUM 50 MG/SENNA 8.6 MG TAB PO SCH ×2 (09:00→21:00)
[2017-03-01] MEDS: HYDROCHLOROTHIAZIDE 25 MG TAB PO SCH (09:00)
--- NOTE | 2017-03-01 10:19 | HHI.FPPN ---
Subjective Remarks No acute events overnight. VS continue to show an elevated SBP around 150-160s but did improve this morning. Patient is non verbal and does not really following commands. Will move limbs when touched and referenced too. reports that patient will intermittently follow very minimal commands and say one word answers but is not able to hold a conversation or speak in sentences. Prior to this admission, patient was working and capable of taking care of herself. (Violetta Reyna MD, R3) Objective Vitals Vital Signs Date Time Temp Pulse Resp B/P (MAP) Pulse Ox O2 Delivery O2 Flow Rate FiO2 03/01/17 08:00 98.2 89 19 137/77 (97) 97 03/01/17 04:00 99.4 84 20 159/74 (102) 98 03/01/17 02:24 96 21 03/01/17 00:00 99.3 79 20 155/83 (107) 96 02/28/17 20:59 99.2 66 20 162/71 (101) 96 02/28/17 20:00 90 02/28/17 20:00 97 Room Air 02/28/17 16:00 98.3 58 15 161/76 (104) 97 02/28/17 16:00 72 02/28/17 14:00 59 02/28/17 12:00 98.1 56 14 163/77 (105) 95 02/28/17 12:00 56 I/O 02/28/17 02/28/17 02/28/17 03/01/17 03/01/17 03/01/17 07:00 15:00 23:00 07:00 15:00 23:00 Intake Total 104 ml Output Total 525 ml 550 ml Balance -421 ml -550 ml IV Total 104 ml Output Urine Total 525 ml 550 ml # Bowel Movements 0 0 (Violetta Reyna MD, R3) Result Diagram: 02/26/17 1210 03/01/17 0435 Imaging Last Impressions Neck CTA 02/28/17 0000 Signed Impressions: Service Date/Time: Tuesday, February 28, 2017 10:57 - CONCLUSION: Stable CT of the head and neck with 40-50%% stenosis left internal carotid artery without thrombosis. Yfn Norton MD FACR Head CTA 02/28/17 0000 Signed Impressions: Service Date/Time: Tuesday, February 28, 2017 10:57 - CONCLUSION: 1. Unremarkable and stable CTA the brain compared to the prior examination. No definite vascular occlusion. Escobar Dailey MD Head CT 02/27/17 0000 Signed Impressions: Service Date/Time: Monday, February 27, 2017 12:45 - CONCLUSION: 1. Evolving posterior fossa and bilateral occipital lobe infarcts. No new hemorrhage. Charles Moctezuma MD Brain MRI 02/26/17 1254 Signed Impressions: Service Date/Time: Sunday, February 26, 2017 13:16 - CONCLUSION: Scattered areas of restricted diffusion anomaly posterior fossa and left occipital lobe. Findings would be consistent with emboli. Yfn Norton MD FACR Objective Remarks GEN: Well-developed, well-nourished patient. No acute distress. Laying comfortably in bed but staring off into space. Will turn head to the left side to make eye contact but focus is very poor. CV: Regular rate and rhythm without obvious murmurs LUNGS: Anterior lung sounds clear to auscultation bilaterally. Normal respiratory effort. No wheezes, rales, rhonchi. GI: Soft, nontender, nondistended. EXT: No edema. No calf tenderness. NEURO/PSYCH: Awake, alert. Was able to say yes multiple times when patient's sister addressed patient. However these answers seemed to be more of a repeat of a word rather than answering. (Violetta Reyna MD, R3) A/P Assessment and Plan Patient is a 56-year-old female with a history significant for HTN, HLD, DM 2, CAD. Admitted for acute ischemic stroke that was preceded by episodes of transient right eye visual defects the day before. Received TPA on admission. Discharge Planning Timeline unknown at this time as patient is not yet fully following commands. Goal is to improve mentation to go to SNF/rehab sdw Dr. Michelle (Violetta Reyna MD, R3) Attending Attestation Patient seen and examined. Case reviewed and discussed with the resident team. Agree with plan of care as discussed with me and documented in the resident note. pt seen with Dr Odell. she is recovering post CVA but has an unusual stroke pattern. she has been delirious per her family with a fluctuating alertness but hopefully can be redirected today (Hoa Michelle MD) Problem List: (1) Acute CVA (cerebrovascular accident) ICD Codes: I63.9 - Cerebral infarction, unspecified Status: Acute Plan: Presented under stroke alert due to headache, blurred vision, slurred speech, near syncope. Neurology assessed the patient and head CT was negative for acute bleed. TPA was given. Now, patient has waxing and weaning episodes of some clarity but overall remains nonverbal and not following commands. -Frequent orientations of patient to self, time, and place. * avoid any sedating medications at this to to try and prevent worsening disorientation -PT/OT/ST ordered -cardiac echo ordered -TSH ordered Neurology consulted: appreciate recommendations * BP goal of 130-135/75-80 * No aspirin, plavix or anticoagulant * Hematology consult * will inquire about time frame of resuming antiplatelet/anticoagulant CC signed off 02/28: Also concern for extracranial cervical occlusive disease Imaging: * Brain MRI: Scattered areas of restricted diffusion anomaly posterior fossa and left occipital lobe.Findings consistent with emboli. * Head CTA 02/26: no major branch vessel occlusion * Neck CTA 02/26: calcified atherosclerotic plaquing at the left carotid bifurcation causing some mild narrowing at the origin of the left internal carotid artery of about 40-50%. Mild atherosclerotic plaquing at the right carotid bifurcation. * Head CT 02/26 @1800: Evolving infarct in both cerebellar hemispheres and occipital lobes with chronic white matter changes. No new hemorrhage * Head CT 02/26 @ 1200: Negative for hemorrhage or acute process (2) HTN (hypertension) ICD Codes: I10 - Essential (primary) hypertension Status: Chronic Plan: Hx of HTN. Called patient's pharmacy to confirm antihypertensive medications which shows only HCTZ 25mg daily -continue HCTZ 25mg daily -consider add lisinopril 20mg daily if SBP>135 (3) Diabetes ICD Codes: E11.9 - Diabetes Status: Chronic Plan: Hx of DM. Metformin on reported medications. Pharmacy states that medication is there but patient had never picked it up. -A1c ordered -low dose sliding scale. High hypoglycemia risk as patient is not yet eating. May need to consider basal with glucose is very elevated while on D5 fluids. (4) CAD (coronary artery disease) ICD Codes: I25.10 - Atherosclerotic heart disease of [place] coronary artery without angina pectoris Status: Chronic Plan: Hx of stent placement. Other risk factors include DM and HTN. Pharmacy reports pt was prescribe simvastatin but it was never picked up. -Start atorvastatin 40mg HS (5) Nutrition, metabolism, and development symptoms ICD Codes: R63.8 - Other symptoms and signs concerning food and fluid intake Plan: Diet: NPO until cleared by ST Fluids: D5 1/2NS at 100 until PO intake resumes Electrolytes: monitor and replace as needed DVT PPX: no chemical anticoagulation due to TPA, SCDs GI PPX: H2 júnior (Violetta Reyna MD, R3) Problem Qualifiers (1) HTN (hypertension): Qualified Codes: I10 - Essential (primary) hypertension (2) Diabetes: Qualified Codes: E11.65 - Type 2 diabetes mellitus with hyperglycemia (3) CAD (coronary artery disease): Qualified Codes: I25.10 - Atherosclerotic heart disease of [place] coronary artery without angina pectoris Violetta Reyna MD, R3 Mar 01, 2017 10:19 Hoa Michelle MD Mar 02, 2017 11:41
[2017-03-01] MEDS ORDERED: LATA0.002 EACH EYE (10:24)
[2017-03-01] MEDS ORDERED: GABA600T PO (10:47)
[2017-03-01] MEDS ORDERED: ENALAPRILAT 1.25 MG/ML VIAL IV PUSH PRN (11:00)
[2017-03-01] MEDS: DEXT 5%-NACL 0.45% 1000 ML INJ 1,000 ML IV SCH ×2 (11:49→21:56)
[2017-03-01] MEDS: FAMOTIDINE 20 MG/2 ML VIAL IV PUSH SCH ×2 (11:52→21:56)
[2017-03-01] MEDS: ASPIRIN 325 MG TAB PO SCH (20:00)
--- NOTE | 2017-03-01 20:01 | HHI.PR ---
Review/Management Diagnosis - Acute ischemic stroke. --probably embolic given distribution on mri s/p tPA - Right ICA stenosis--not hemodynamically significant Plan start aspirin 325 mg daily check echo check lipid panel consider anticoagulation in about a week after follow up ct. Would not anticoagulate at this time due to risk of hemorrhagic conversion of strokes Diagnosis/Plan: Subjective Subjective Comments No acute events reported Active Medications Current Medications Medications (Trade) Dose Ordered Sig/Rama Route Start Time Stop Time Status Last Admin (Tylenol) 650 mg Q6H PRN PO 02/26/17 15:45 (Morphine Inj) 2 mg Q2H PRN IV PUSH 02/26/17 15:45 Future Hold (Pepcid Inj) 20 mg Q12HR IV PUSH 02/26/17 21:00 03/01/17 11:52 (Zofran Inj) 4 mg Q6H PRN IV PUSH 02/26/17 15:45 (Duoneb Neb) 1 ampule Q4HR NEB PRN INH 02/26/17 15:45 Miscellaneous Information 1 Q361D XX 02/26/17 15:45 02/26/17 15:45 (Chlorhexidine 2% Cloth) 3 pack Taper DAILY@04 TOP 02/27/17 04:00 02/23/18 03:59 (Chlorhexidine 2% Cloth) 3 pack UNSCH PRN TOP 02/26/17 15:45 (Daina-Colace) 1 tab BID PO 02/26/17 21:00 (Milk Of Magnesia Liq) 30 ml Q12H PRN PO 02/26/17 15:45 (Senokot) 17.2 mg Q12H PRN PO 02/26/17 15:45 (Dulcolax Supp) 10 mg DAILY PRN RECTAL 02/26/17 15:45 (Lactulose Liq) 30 ml DAILY PRN PO 02/26/17 15:45 (Hydrodiuril) 25 mg DAILY PO 02/27/17 09:00 (D50w (Vial) Inj) 50 ml UNSCH PRN IV PUSH 02/26/17 17:00 (Glucagon Inj) 1 mg UNSCH PRN OTHER 02/26/17 17:00 (Trandate Inj) 20 mg Q1H PRN IV PUSH 02/26/17 17:30 02/28/17 17:32 Dextrose/Sodium Chloride 1,000 ml @ 100 mls/hr Q10H IV 03/01/17 09:15 03/01/17 11:49 (Xalatan 0.005% Opth Soln) 1 drop HS EACH EYE 03/01/17 21:00 (Lipitor) 40 mg HS PO 03/01/17 21:00 (NovoLOG SUPPLEMENTAL SCALE) 1 ACHS SLIDING SCALE SQ 03/01/17 12:00 03/01/17 19:25 (Vasotec Inj) 1.25 mg Q6H PRN IV PUSH 03/01/17 11:00 Allergies Allergies Coded Allergies cefuroxime (Verified Allergy, Mild, Rash, 02/26/17) Review of Systems All other ROS: ROS reviewed as documented in chart Exam I&O / VS 03/01/17 03/01/17 03/02/17 15:00 23:00 07:00 Intake Total 500 ml Output Total 450 ml Balance 50 ml IV Total 500 ml Output Urine Total 450 ml Vital Signs Date Time Temp Pulse Resp B/P (MAP) Pulse Ox O2 Delivery O2 Flow Rate FiO2 03/01/17 19:53 97.5 75 16 179/83 (115) 96 03/01/17 18:00 94 03/01/17 16:00 92 03/01/17 16:00 98.7 79 25 158/75 (102) 96 03/01/17 14:00 74 03/01/17 12:00 98.1 88 20 152/76 (101) 99 03/01/17 12:00 78 03/01/17 10:00 82 03/01/17 08:00 80 03/01/17 08:00 97 Room Air 03/01/17 08:00 98.2 89 19 137/77 (97) 97 03/01/17 07:47 96 21 03/01/17 04:00 99.4 84 20 159/74 (102) 98 03/01/17 02:24 96 21 03/01/17 00:00 99.3 79 20 155/83 (107) 96 02/28/17 20:59 99.2 66 20 162/71 (101) 96 02/28/17 20:00 90 02/28/17 20:00 97 Room Air Neurologic: Other (b/l visual field defects, right > left) Exam Comments alert, follow commands CN--right hemianopsia. PERRL MOTOR --moves RUE > LUE Objective Radiology Results MRI--bilateral posterior fossa cva. left occipital cva--suspected to be embolic. CTA brain--normal CTA neck--40-50 % left carotid stenosis Micro and Labs Laboratory Tests Test 03/01/17 04:35 03/01/17 11:50 Blood Urea Nitrogen 22 Creatinine 0.82 Random Glucose 181 Calcium Level 9.0 Sodium Level 137 Potassium Level 3.8 Chloride Level 102 Carbon Dioxide Level 27.3 Anion Gap 8 Estimat Glomerular Filtration Rate 73 Thyroid Stimulating Hormone 3rd Gen 2.530 Andre Myrick MD PhD Mar 01, 2017 20:01
[2017-03-01] MEDS: ATORVASTATIN 40 MG TAB PO SCH (21:00)
[2017-03-01] MEDS: LATANOPROST 0.005% OPHT SOLN 2.5 ML BTL EACH EYE SCH (21:56)
[2017-03-01 22:23] LABS: HEMOGLOBIN A1C 9.6 % (4.3-6.0)
[2017-03-02] VITALS (8 sets, daily range): BP systolic 130–159; BP diastolic 63–85; PULSE 59–87; RESP 17–24; TEMP 97.7–98.5; O2SAT 92–99
[2017-03-02] MEDS: DEXT 5%-NACL 0.45% 1000 ML INJ 1,000 ML IV SCH ×2 (05:15→15:15)
[2017-03-02 05:17] LABS: AUTOMATED NEUTROPHIL # 9.6 TH/MM3 (1.8-7.7); BASOPHIL # 0.1 TH/MM3 (0-0.2); BASOPHIL % 0.6 % (0.0-2.0); EOSINOPHIL # 0.2 TH/MM3 (0-0.4); EOSINOPHIL % 1.5 % (0.0-4.0); HEMATOCRIT 43.4 % (35.0-46.0); LYMPH % 15.1 % (9.0-44.0); MEAN CELL VOLUME 87.1 FL (80.0-100.0); MEAN CORPUSCULAR HGB CONC 34.5 % (32.0-36.0); MEAN PLATELET VOLUME 7.8 FL (7.0-11.0); MONO % 10.2 % (0.0-8.0); MONOCYTE # 1.3 TH/MM3 (0-0.9); NEUT % 72.6 % (16.0-70.0); PLATELET COUNT 308 TH/MM3 (150-450); RED BLOOD COUNT 4.98 MIL/MM3 (4.00-5.30); RED CELL DISTRIBUTION WIDTH 14.8 % (11.6-17.2); WHITE BLOOD COUNT 13.2 TH/MM3 (4.0-11.0)
[2017-03-02 05:53] LABS: BICARBONATE 24.6 MEQ/L (21.0-32.0); CALCIUM 8.7 MG/DL (8.5-10.1); CHOLESTEROL/ HDL RATIO 4.79 RATIO; CREATININE 0.73 MG/DL (0.50-1.00)
[2017-03-02] MEDS ORDERED: ENALAPRILAT 1.25 MG/ML VIAL IV PUSH SCH (07:15)
[2017-03-02] MEDS: HYDROCHLOROTHIAZIDE 25 MG TAB PO SCH (07:54)
[2017-03-02] MEDS: DOCUSATE SODIUM 50 MG/SENNA 8.6 MG TAB PO SCH ×2 (07:54→21:42)
[2017-03-02] MEDS: ASPIRIN 325 MG TAB PO SCH (07:54)
[2017-03-02] MEDS: INSULIN ASPART SUPPLEMENTAL SCALE SQ SCH ×4 (08:00→22:12)
[2017-03-02 08:04] LABS: BANDS 6 % (0-6); BASOPHILS 1 % (0-2); LYMPHOCYTES 7 % (9-44); MONOCYTES 11 % (0-8); MYELOCYTES 1 % (0-0); NEUTROPHIL # MANUAL DIFF 10.7 TH/MM3 (1.8-7.7); POLYS (SEG NEUTROPHILS) 74 % (16-70)
[2017-03-02] MEDS: FAMOTIDINE 20 MG/2 ML VIAL IV PUSH SCH ×2 (09:46→21:42)
--- NOTE | 2017-03-02 10:05 | HHI.FPPN ---
Subjective Remarks Ms Friend is making tremendous progress compared to the first time I saw her yesterday. She was much more confused yesterday and was not swallowing well nor following commands. However today she is passing her cognitive and swallowing studies. Her is very happy to have her go to [facility] once she is ready. Ms Friend was speaking in sentences and answering questions but not in paragraphs. she is moving all extremities well and has not had complaints Objective Vitals Vital Signs Date Time Temp Pulse Resp B/P (MAP) Pulse Ox O2 Delivery O2 Flow Rate FiO2 03/02/17 08:00 98.3 69 23 134/63 (86) 92 03/02/17 04:00 98.0 59 18 151/72 (98) 95 03/02/17 00:43 98.2 83 17 159/85 (109) 97 03/01/17 20:00 98 Room Air 03/01/17 20:00 62 03/01/17 19:53 97.5 75 16 179/83 (115) 96 03/01/17 18:00 94 03/01/17 16:00 92 03/01/17 16:00 98.7 79 25 158/75 (102) 96 03/01/17 14:00 74 03/01/17 12:00 98.1 88 20 152/76 (101) 99 03/01/17 12:00 78 I/O 03/01/17 03/01/17 03/01/17 03/02/17 03/02/17 03/02/17 07:00 15:00 23:00 07:00 15:00 23:00 Intake Total 500 ml Output Total 450 ml 300 ml Balance 50 ml -300 ml IV Total 500 ml Output Urine Total 450 ml 300 ml Result Diagram: 03/02/17 0439 03/02/17 0439 Objective Remarks GEN: Well-developed, well-nourished patient. No acute distress. Laying comfortably in bed but moves around and scoots down in the bed. CV: Regular rate and rhythm without obvious murmurs LUNGS: Anterior lung sounds clear to auscultation bilaterally. Normal respiratory effort. No wheezes, rales, rhonchi. GI: Soft, nontender, nondistended. EXT: No edema. No calf tenderness. NEURO/PSYCH: Awake, alert. unclear how well her vision is at this time. she evidently was able to engage with a young relative on the computer and say "I love you". she is able to move all extremities and when asked to touch her nose she did it 3 times. she was really working to follow commands Urinary Catheter: Yes Assessment to: Remove A/P Assessment and Plan Patient is a 56-year-old female with a history significant for HTN, HLD, DM 2, CAD. Admitted for acute ischemic stroke that was preceded by episodes of transient right eye visual defects the day before. Received TPA on admission. Discharge Planning Timeline unknown at this time as patient is not yet fully following commands. Goal is to improve mentation to go to SNF/rehab sdw Dr. Michelle Problem List: (1) Acute CVA (cerebrovascular accident) ICD Codes: I63.9 - Cerebral infarction, unspecified Status: Acute Plan: Presented under stroke alert due to headache, blurred vision, slurred speech, near syncope. Neurology assessed the patient and head CT was negative for acute bleed. TPA was given. Now, patient is improving and able to follow commands. she is more verbal today and can swallow -Frequent orientations of patient to self, time, and place. * avoid any sedating medications at this to to try and prevent worsening disorientation -PT/OT/ST ordered -cardiac echo ordered -TSH ordered Neurology consulted: appreciate recommendations * BP goal of 130-135/75-80 * started aspirin, no Plavix or anticoagulant for about a week. see Dr Myrick's note as she is at risk for bleed. * Hematology consult. with multiple small strokes, suspect embolic source so will check an echo. do not suspect any emboli from lung CC signed off 02/28: Also concern for extracranial cervical occlusive disease Imaging: * Brain MRI: Scattered areas of restricted diffusion anomaly posterior fossa and left occipital lobe.Findings consistent with emboli. * Head CTA 02/26: no major branch vessel occlusion * Neck CTA 02/26: calcified atherosclerotic plaquing at the left carotid bifurcation causing some mild narrowing at the origin of the left internal carotid artery of about 40-50%. Mild atherosclerotic plaquing at the right carotid bifurcation. * Head CT 02/26 @1800: Evolving infarct in both cerebellar hemispheres and occipital lobes with chronic white matter changes. No new hemorrhage * Head CT 02/26 @ 1200: Negative for hemorrhage or acute process (2) HTN (hypertension) ICD Codes: I10 - Essential (primary) hypertension Status: Chronic Plan: Hx of HTN. Called patient's pharmacy to confirm antihypertensive medications which shows only HCTZ 25mg daily -continue HCTZ 25mg daily hope to restart as she can take po now -consider add lisinopril 20mg daily if SBP>135 (3) Diabetes ICD Codes: E11.9 - Diabetes Status: Chronic Plan: Hx of DM. Metformin on reported medications. Pharmacy states that medication is there but patient had never picked it up. -A1c ordered -low dose sliding scale. she will hopefully start eating today and her glucoses will need to be followed carefully (4) CAD (coronary artery disease) ICD Codes: I25.10 - Atherosclerotic heart disease of [place] coronary artery without angina pectoris Status: Chronic Plan: Hx of stent placement. Other risk factors include DM and HTN. Pharmacy reports pt was prescribe simvastatin but it was never picked up. -Start atorvastatin 40mg HS (5) Nutrition, metabolism, and development symptoms ICD Codes: R63.8 - Other symptoms and signs concerning food and fluid intake Plan: Diet: should be able to start today Fluids: D5 1/2NS at 100 until PO intake resumes Electrolytes: monitor and replace as needed DVT PPX: no chemical anticoagulation due to TPA, SCDs GI PPX: H2 júnior Problem Qualifiers (1) HTN (hypertension): Qualified Codes: I10 - Essential (primary) hypertension (2) Diabetes: Qualified Codes: E11.65 - Type 2 diabetes mellitus with hyperglycemia (3) CAD (coronary artery disease): Qualified Codes: I25.10 - Atherosclerotic heart disease of [place] coronary artery without angina pectoris Hoa Michelle MD Mar 02, 2017 10:05
[2017-03-02] MEDS ORDERED: ENALAPRILAT 1.25 MG/ML VIAL IV PUSH PRN (10:30)
--- NOTE | 2017-03-02 18:03 | HHI.PR ---
Review/Management Diagnosis - Acute ischemic stroke. --probably embolic given distribution on mri s/p tPA - Right ICA stenosis--not hemodynamically significant Plan start aspirin 325 mg daily consider anticoagulation in about a week after follow up ct. Would not anticoagulate at this time due to risk of hemorrhagic conversion of strokes Diagnosis/Plan: Subjective Subjective Comments No acute events reported Active Medications Current Medications Medications (Trade) Dose Ordered Sig/Rama Route Start Time Stop Time Status Last Admin (Tylenol) 650 mg Q6H PRN PO 02/26/17 15:45 (Morphine Inj) 2 mg Q2H PRN IV PUSH 02/26/17 15:45 Future Hold (Pepcid Inj) 20 mg Q12HR IV PUSH 02/26/17 21:00 03/02/17 09:46 (Zofran Inj) 4 mg Q6H PRN IV PUSH 02/26/17 15:45 (Duoneb Neb) 1 ampule Q4HR NEB PRN INH 02/26/17 15:45 Miscellaneous Information 1 Q361D XX 02/26/17 15:45 02/26/17 15:45 (Chlorhexidine 2% Cloth) 3 pack Taper DAILY@04 TOP 02/27/17 04:00 02/23/18 03:59 (Chlorhexidine 2% Cloth) 3 pack UNSCH PRN TOP 02/26/17 15:45 (Daina-Colace) 1 tab BID PO 02/26/17 21:00 (Milk Of Magnesia Liq) 30 ml Q12H PRN PO 02/26/17 15:45 (Senokot) 17.2 mg Q12H PRN PO 02/26/17 15:45 (Dulcolax Supp) 10 mg DAILY PRN RECTAL 02/26/17 15:45 (Lactulose Liq) 30 ml DAILY PRN PO 02/26/17 15:45 (Hydrodiuril) 25 mg DAILY PO 02/27/17 09:00 (D50w (Vial) Inj) 50 ml UNSCH PRN IV PUSH 02/26/17 17:00 (Glucagon Inj) 1 mg UNSCH PRN OTHER 02/26/17 17:00 (Trandate Inj) 20 mg Q1H PRN IV PUSH 02/26/17 17:30 02/28/17 17:32 Dextrose/Sodium Chloride 1,000 ml @ 100 mls/hr Q10H IV 1/25/18 09:15 03/02/17 15:15 (Xalatan 0.005% Opth Soln) 1 drop HS EACH EYE 03/01/17 21:00 03/01/17 21:56 (Lipitor) 40 mg HS PO 03/01/17 21:00 (NovoLOG SUPPLEMENTAL SCALE) 1 ACHS SLIDING SCALE SQ 03/01/17 12:00 03/02/17 17:00 (Aspirin) 325 mg DAILY PO 03/01/17 20:00 (Vasotec Inj) 1.25 mg Q6H PRN IV PUSH 03/02/17 10:30 Allergies Allergies Coded Allergies cefuroxime (Verified Allergy, Mild, Rash, 02/26/17) Review of Systems All other ROS: ROS reviewed as documented in chart Exam I&O / VS Vital Signs Date Time Temp Pulse Resp B/P (MAP) Pulse Ox O2 Delivery O2 Flow Rate FiO2 03/02/17 16:11 95 21 03/02/17 16:00 97.7 70 24 137/73 (94) 97 03/02/17 12:00 98.5 68 20 151/80 (103) 99 03/02/17 09:15 97 Room Air 03/02/17 08:00 98.3 69 23 134/63 (86) 92 03/02/17 04:00 98.0 59 18 151/72 (98) 95 03/02/17 00:43 98.2 83 17 159/85 (109) 97 03/01/17 20:00 98 Room Air 03/01/17 20:00 62 03/01/17 19:53 97.5 75 16 179/83 (115) 96 Neurologic: Other (b/l visual field defects, right > left) Exam Comments alert, follow commands CN--right hemianopsia. PERRL MOTOR --moves RUE > LUE Objective Micro and Labs Laboratory Tests Test 03/02/17 04:39 White Blood Count 13.2 Red Blood Count 4.98 Hemoglobin 15.0 Hematocrit 43.4 Mean Corpuscular Volume 87.1 Mean Corpuscular Hemoglobin 30.0 Mean Corpuscular Hemoglobin Concent 34.5 Red Cell Distribution Width 14.8 Platelet Count 308 Mean Platelet Volume 7.8 Neutrophils (%) (Auto) 72.6 Lymphocytes (%) (Auto) 15.1 Monocytes (%) (Auto) 10.2 Eosinophils (%) (Auto) 1.5 Basophils (%) (Auto) 0.6 Neutrophils # (Auto) 9.6 Lymphocytes # (Auto) 2.0 Monocytes # (Auto) 1.3 Eosinophils # (Auto) 0.2 Basophils # (Auto) 0.1 CBC Comment AUTO DIFF Differential Total Cells Counted 100 Neutrophils % (Manual) 74 Band Neutrophils % 6 Lymphocytes % 7 Monocytes % 11 Basophils % 1 Neutrophils # (Manual) 10.7 Myelocytes 1 Differential Comment FINAL DIFF MANUAL Platelet Estimate NORMAL Platelet Morphology Comment NORMAL Red Cell Morphology Comment NORMAL Blood Urea Nitrogen 22 Creatinine 0.73 Random Glucose 164 Calcium Level 8.7 Sodium Level 138 Potassium Level 3.6 Chloride Level 106 Carbon Dioxide Level 24.6 Anion Gap 7 Estimat Glomerular Filtration Rate 83 Triglycerides Level 144 Cholesterol Level 211 LDL Cholesterol 138 HDL Cholesterol 44.0 Cholesterol/HDL Ratio 4.79 Andre Myrick MD PhD Mar 02, 2017 18:03
--- NOTE | 2017-03-02 18:40 | ECHRPT ---
Indication: CEREBRAL EMBOLISM CONCLUSIONS The left ventricular systolic function is normal with an estimated ejection fraction in the range of 60-65%. Mild concentric left ventricular hypertrophy. Doppler parameters are consistent with impaired left ventricular relaxtion (grade 1 diastolic dysfun ction). Trace mitral valve regurgitation. There is mild tricuspid valve regurgitation. BP: 137 / 77 HR: 89 Rhythm: Sinus MEASUREMENTS (Male / Female) Normal Values Technical Quality:Very technically difficult study 2D ECHO LV Diastolic Diameter PLAX 3.4 cm 4.2 - 5.9 / 3.9 - 5.3 cm LV Systolic Diameter PLAX 2.5 cm IVS Diastolic Thickness 1.3 cm 0.6 - 1.0 / 0.6 - 0.9 cm LVPW Diastolic Thickness 1.3 cm 0.6 - 1.0 / 0.6 - 0.9 cm LV Relative Wall Thickness 0.8 RV Internal Dim ED PLAX 2.6 cm LVOT Diameter 1.4 cm Aortic Root Diameter 2.5 cm LA Systolic Diameter LX 3.0 cm 3.0 - 4.0 / 2.7 - 3.8 cm M-MODE AV Cusp Separation MM 1.6 cm DOPPLER AV Peak Velocity 168.0 cm/s AV Peak Gradient 11.3 mmHg AV Mean Gradient 5.0 mmHg AV Velocity Time Integral 24.4 cm LVOT Peak Velocity 82.0 cm/s LVOT Peak Gradient 2.7 mmHg LVOT Velocity Time Integral 12.6 cm AV Area Cont Eq vti 0.8 cm AV Area Cont Eq pk 0.8 cm Mitral E Point Velocity 54.3 cm/s Mitral A Point Velocity 91.8 cm/s Mitral E to A Ratio 0.6 LV E' Lateral Velocity 11.6 cm/s Mitral E to LV E' Lateral Ratio 4.7 LV E' Septal Velocity 5.6 cm/s Mitral E to LV E' Septal Ratio 9.8 PV Peak Velocity 73.7 cm/s PV Peak Gradient 2.2 mmHg FINDINGS LEFT VENTRICLE Normal left ventricular size. Mild concentric left ventricular hypertrophy. The left ventricular systolic function is normal with an estimated ejection fraction in the range of 60-65%. There was limited left ventricular wall motion assessment due to poor endocardial visualization. Doppler parameters are consistent with impaired left ventricular relaxtion (grade 1 diastolic dysfun ction). RIGHT VENTRICLE The right ventricle was not well visualized. LEFT ATRIUM The left atrial size is normal. RIGHT ATRIUM The right atrium is not well visualized. ATRIAL SEPTUM Normal atrial septal thickness. AORTA The aortic root and proximal ascending aorta are normal in size on limited imaging. MITRAL VALVE Structurally normal mitral valve. No mitral valve stenosis. Trace mitral valve regurgitation. AORTIC VALVE No aortic valve stenosis or regurgitation. TRICUSPID VALVE Grossly normal tricuspid valve. There is mild tricuspid valve regurgitation. No tricuspid valve stenosis. PULMONARY VALVE No pulmonary valve regurgitation or stenosis. VESSELS The inferior vena cava was not well visualized. PERICARDIUM A prominent epicardial fat pad is present. Maverick Willingham DO (Electronically Signed) Final Date:02 March 2017 18:39
--- NOTE | 2017-03-02 19:47 | MB ---
cc: EMEKA HOPKINS MD DATE OF CONSULTATION: 03/02/2017. REASON FOR CONSULTATION: Ischemic stroke. Suspected thromboembolic event. DATE OF : 1960. PRIMARY CARE PHYSICIANS: [facility]. CHIEF COMPLAINT: The patient denies complaints. She is asleep for most of this interview. HISTORY OF PRESENT ILLNESS: Ms. Bolanos is a 56-year-old female with a previous history of tobaccoism (quit 18 years ago), type 2 diabetes, hypertension and hyperlipidemia. She was at work on 02/26/2017 when she noticed slurred speech and headaches. She was taken to the [facility] Emergency department. The patient works at [facility] and presented to the emergency department within one hour of the onset of her symptoms. She underwent imaging studies of the brain and blood work and was then treated with tPA. Her NIH score was 5. She subsequently underwent imaging studies of the brain which included MRI, MRA of the head as well as MRA of the neck. She was noted to have a non-hemodynamically significant 40% occlusion of the left internal carotid artery. The distribution of the embolic stroke was identified within the posterior fossa of the left occipital lobe. The hematology service has been asked to see her for possible underlying prothrombotic state. PAST MEDICAL HISTORY: 1. Diabetes. 2. Hypertension. 3. Hyperlipidemia. 4. History of coronary artery disease. 5. Personal history of tobaccoism in the past. 6. Hypertriglyceridemia. 7. History of asthma. 8. Osteoarthritis. 9. History of glaucoma. PAST SURGICAL HISTORY: Cardiac stent placement x1 stent in 2005. FAMILY HISTORY: Significant for diabetes, hypertension, coronary artery disease. SOCIAL HISTORY: Quit smoking 18 years ago. She denies alcohol abuse. 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 HEALTH CARE MAINTENANCE: She sees her primary care physician here at [facility] and reportedly is up-to-date with mammograms and colonoscopies. ALLERGIES: 1. CEFUROXIME. CURRENT INPATIENT MEDICATIONS: 1. Aspirin 325 milligrams once daily. 2. Lipitor 40 milligrams once daily. 3. Dulcolax suppository 10 milligrams per rectum as needed for constipation. 4. Enalapril 1.25 milligrams IV q.6 hours as needed for hypertension. 5. Famotidine 120 milligrams IV q. 12 hours. 6. Hydrochlorothiazide 25 milligrams p.o. daily. 7. Labetalol 20 milligrams IV every hour as needed for hypertension. 8. Lactulose 30 mL p.o. daily as needed for severe constipation. 9. Insulin NovoLog sliding scale per protocol. 10. Magnesium hydroxide 30 mL p.o. q. 12 hours. 11. Zofran 4 milligrams IV q. 6 hours as needed for nausea and vomiting. 12. Senokot 17.2 milligrams p.o. q. 12 hours as needed for constipation. REVIEW OF SYSTEMS: Per the patient's family the patient has slurred speech starting 02/26/2017. Since then she has improved her speech following tPA but she continues to have some hesitancy. They report the patient has not had any residual motor deficits. She is sleepy at this time and wakes up only to mumble a few words and then goes back to sleep. They tell me she has not slept at nighttime and is very sleepy this afternoon. There is no reported history of respiratory distress, chest pain, nausea, vomiting, diarrhea hematochezia or melena. PHYSICAL EXAMINATION: VITAL SIGNS: Temperature 98.5 degrees Fahrenheit, heart rate 68 beats per minute, blood pressure 151/80, O2 sats 99% on room air, respiratory rate 20. GENERAL PHYSICAL APPEARANCE: Ms. Bolanos is a middle-aged lady, she is laying in bed, she is asleep. She appears to be comfortable, she is moving her arms and legs spontaneously as she moves in bed. HEAD, EYES, EARS, NOSE, THROAT: Head atraumatic, normocephalic. Conjunctivae are non-pale. The sclerae are anicteric. ORAL EXAM: The patient will not open her mouth. NECK EXAM: No palpable cervical lymphadenopathy. RESPIRATORY EXAM: Good air movement on anterior exam over the upper, middle and lower lung zones. CARDIOVASCULAR EXAM: Regular rate and rhythm. S1, S2. No obvious murmurs, rubs or gallops. ABDOMINAL EXAMINATION: Protuberant, soft and nontender and nondistended. No palpable organ enlargement. LOWER EXTREMITIES: No pretibial edema. No calf tenderness. TANK CALIBRATOR: She is moving all four limbs spontaneously and there appeared to be purposeful movements. LABORATORY FINDINGS: Blood work dated 03/02/2017: WBC count 13.2, hemoglobin is 15 gm/dl, hematocrit 43.4%, platelet count 308,000, absolute neutrophil count is 9.6. Chemistries: Sodium 138, potassium 3.6, chloride 106, bicarb 24.6, BUN 22, creatinine 0.73, EGFR is 83, random glucose 164. Coags: PT 10.4, INR 1, PTT 18.1. IMAGING STUDIES: Head CT scan dated 03/04/2017 indicates evolving infarcts in both cerebellar hemispheres and occipital lobes with chronic white matter changes as well, no hemorrhage is noted. MRI of the brain dated 02/26/2017 indicates scattered areas of restricted diffusion anomaly in the posterior fossa and the left occipital lobe. Findings would be consistent with emboli. Neck CT angiogram dated 02/28/[address] of the head and neck with 40-50% stenosis of the left internal carotid artery without thrombosis. Head CT angiogram dated 02/28/2017 indicates unremarkable and stable CTA of the brain when compared to prior examination, no definite vascular occlusion noted. ASSESSMENT: Ms. Bolanos is a 56-year-old female who developed symptoms of slurred speech and headaches on the morning of 02/26/2017. 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 Her NIH score was 5. Imaging studies of the brain were consistent with acute ischemic infarcts involving the left occipital lobe, these were scattered in nature. Findings were concerning for embolic phenomenon. She did receive tPA infusion and has since then been initiated on full dose aspirin; 325 milligrams daily. A cardiac workup is underway with an echocardiogram (transthoracic), this is pending. There is no evidence of atrial fibrillation identified. RECOMMENDATIONS: 1. Concern for possible underlying pro thrombotic state: Given her history of coronary artery disease, previous history tobaccoism, obesity, hyperlipidemia and diabetes as well as findings of 40-50% stenosis of the left internal carotid artery which is upstream from the scattered emboli identified, I suspect these risk factors in themselves should be sufficient to explain her current issue. I tend to suspect an underlying prothrombotic state in individuals who have completely unprovoked arterial or venous emboli. Her risk factors are sufficient in my view to explain this stroke. I will review the literature and place orders for pro thrombotic workup if additional explanation as needed or warranted. Please continue management of her embolic stroke as per neurology recommendations. Await results of her echocardiogram. MD OH Goodman/MARIKA /3:07 PM /7:13 PM MTDNikita
[2017-03-02] MEDS: ATORVASTATIN 40 MG TAB PO SCH (21:42)
[2017-03-02] MEDS: LATANOPROST 0.005% OPHT SOLN 2.5 ML BTL EACH EYE SCH (21:43)
[2017-03-03] VITALS: PULSE 67
[2017-03-03 00:11] VITALS: BP 148/76; PULSE 75; RESP 20; TEMP 97.8; O2SAT 96
[2017-03-03] MEDS: DEXT 5%-NACL 0.45% 1000 ML INJ 1,000 ML IV SCH (03:07)
[2017-03-03] MEDS: CHLORHEXIDINE GLUCONATE 2 % 1 PACK (2 CLOTHS) TOP SCH (03:09)
[2017-03-03 04:00] VITALS: BP 140/75; PULSE 69; PULSE 73; RESP 20; TEMP 98.1; O2SAT 96
[2017-03-03 07:10] LABS: BICARBONATE 25.4 MEQ/L (21.0-32.0); CREATININE 0.76 MG/DL (0.50-1.00)
[2017-03-03 08:11] VITALS: BP 150/76; PULSE 63; RESP 20; TEMP 98.6; O2SAT 98
[2017-03-03] MEDS ORDERED: POTASSIUM CHLORIDE 20 MEQ CONTROLLED RELEASE TAB PO ONE (08:15)
--- NOTE | 2017-03-03 08:21 | HHI.FPPN ---
Subjective Remarks No acute events overnight. VS unremarkable. This morning patient is much more communicative. Responds to her names. Continues to repeat some phrases but is able to say that she is feeling well without chest pain or SOB. Think that she is in rehab and it is 2000. Unable to identify her daughter in the room. Daughter reports that patient was able to hold a conversation yesterday that made sense. Did get more confused in the middle of the night however. (Violetta Reyna MD, R3) Objective Vitals Vital Signs Date Time Temp Pulse Resp B/P (MAP) Pulse Ox O2 Delivery O2 Flow Rate FiO2 03/03/17 08:11 98.6 63 20 150/76 (100) 98 03/03/17 04:00 98.1 73 20 140/75 (96) 96 03/03/17 04:00 69 03/03/17 00:11 97.8 75 20 148/76 (100) 96 03/03/17 00:00 67 03/02/17 20:00 Room Air 03/02/17 20:00 87 03/02/17 20:00 97.8 75 18 130/75 (93) 97 03/02/17 16:11 95 21 03/02/17 16:00 97.7 70 24 137/73 (94) 97 03/02/17 12:00 98.5 68 20 151/80 (103) 99 03/02/17 09:15 97 Room Air I/O 03/02/17 03/02/17 03/02/17 03/03/17 03/03/17 03/03/17 07:00 15:00 23:00 07:00 15:00 23:00 Intake Total 50 ml Output Total 300 ml 200 ml Balance -300 ml -150 ml Intake Oral 50 ml Output Urine Total 300 ml 200 ml # Voids 1 1 # Bowel Movements 1 (Violetta Reyna MD, R3) Result Diagram: 03/02/17 0439 03/03/17 0530 Objective Remarks GEN: Well-developed, well-nourished patient. No acute distress. Laying comfortably in bed. Makes good eye contact. Able to turn head to orient to person speaking on the other side of the room. CV: Regular rate and rhythm without obvious murmurs LUNGS: Lungs clear to auscultation bilaterally. Normal respiratory effort. No wheezes, rales, rhonchi. GI: non distended EXT: No edema. No calf tenderness. NEURO/PSYCH: Awake, alert. Able to follow commands. Oriented to person but not fully to place and time. However, she is has improved since initial evaluation. (Violetta Reyna MD, R3) A/P Assessment and Plan Patient is a 56-year-old female with a history significant for HTN, HLD, DM 2, CAD. Admitted for acute ischemic stroke that was preceded by episodes of transient right eye visual defects the day before. Received TPA on admission. Discharge Planning Today or tomorrow as patient is tolerating PO and is following commands. Pending placement wdw Dr. Michelle (Violetta Reyna MD, R3) Attending Attestation Patient seen and examined. Case reviewed and discussed with the resident team. Agree with plan of care as discussed with me and documented in the resident note. very pleased at the progress she has made! She is accepted at [facility] and is eating, drinking and following commands and improving daily so she should do well there. (Hoa Michelle MD) Problem List: (1) Acute CVA (cerebrovascular accident) ICD Codes: I63.9 - Cerebral infarction, unspecified Status: Acute Plan: Presented under stroke alert due to headache, blurred vision, slurred speech, near syncope. Neurology assessed the patient and head CT was negative for acute bleed. TPA was given. Now, patient is improving and able to follow commands. She is more verbal today and can swallow -Frequent orientations of patient to self, time, and place. * avoid any sedating medications at this to to try and prevent worsening disorientation -PT/OT/ST ordered -cardiac echo: EF of 60-65%. Mild concentric left ventricular hypertrophy -TSH WNL Hematology consulted: appreciate recommendations * Given hx, suspect CAD, tobacco use, HLD, and DM are cause of stroke rather than pro thrombolic state at this time. * Will place orders for pro thrombolic work up if additional explanation is needed/warranted. Neurology consulted: appreciate recommendations * BP goal of 130-135/75-80 * started aspirin, no Plavix or anticoagulant for about a week. see Dr Myrick's note as she is at risk for bleed. CC signed off 02/28: Also concern for extracranial cervical occlusive disease Imaging: * Brain MRI: Scattered areas of restricted diffusion anomaly posterior fossa and left occipital lobe.Findings consistent with emboli. * Head CTA 02/26: no major branch vessel occlusion * Neck CTA 02/26: calcified atherosclerotic plaquing at the left carotid bifurcation causing some mild narrowing at the origin of the left internal carotid artery of about 40-50%. Mild atherosclerotic plaquing at the right carotid bifurcation. * Head CT 02/26 @1800: Evolving infarct in both cerebellar hemispheres and occipital lobes with chronic white matter changes. No new hemorrhage * Head CT 02/26 @ 1200: Negative for hemorrhage or acute process (2) HTN (hypertension) ICD Codes: I10 - Essential (primary) hypertension Status: Chronic Plan: Hx of HTN. Called patient's pharmacy to confirm antihypertensive medications which shows only HCTZ 25mg daily -continue HCTZ 25mg daily hope to restart as she can take po now -consider add lisinopril 20mg daily if SBP>135 (3) Diabetes ICD Codes: E11.9 - Diabetes Status: Chronic Plan: Hx of DM. Metformin on reported medications. Pharmacy states that medication is there but patient had never picked it up. -A1c 9.6 -low dose sliding scale. -resume metformin as outpatient (4) CAD (coronary artery disease) ICD Codes: I25.10 - Atherosclerotic heart disease of [place] coronary artery without angina pectoris Status: Chronic Plan: Hx of stent placement. Other risk factors include DM and HTN. Pharmacy reports pt was prescribe simvastatin but it was never picked up. -Start atorvastatin 40mg HS --Elevated LDL of 138 (5) Nutrition, metabolism, and development symptoms ICD Codes: R63.8 - Other symptoms and signs concerning food and fluid intake Plan: Diet: Diabetic diet plus speech recommendations Fluids: PO hydration Electrolytes: monitor and replace as needed. 40KCL x1 DVT PPX: no chemical anticoagulation due to TPA, SCDs GI PPX: H2 júnior (Violetta Reyna MD, R3) Problem Qualifiers (1) HTN (hypertension): Qualified Codes: I10 - Essential (primary) hypertension (2) Diabetes: Qualified Codes: E11.65 - Type 2 diabetes mellitus with hyperglycemia (3) CAD (coronary artery disease): Qualified Codes: I25.10 - Atherosclerotic heart disease of [place] coronary artery without angina pectoris Violetta Reyna MD, R3 Mar 03, 2017 08:21 Hoa Michelle MD Mar 03, 2017 11:25
[2017-03-03] MEDS ORDERED: ATOR40TA16 PO (09:00)
[2017-03-03] MEDS ORDERED: ASA325 PO (09:00)
--- NOTE | 2017-03-03 09:01 | HHI.DCPOC ---
Discharge Care Plan Diagnosis: (1) Acute CVA (cerebrovascular accident) (2) Diabetes (3) HTN (hypertension) (4) CAD (coronary artery disease) Goals to Promote Your Health * To prevent worsening of your condition and complications * To maintain your health at the optimal level Directions to Meet Your Goals Take your medications as prescribed Follow your dietary instruction Follow activity as directed Keep your appointments as scheduled Take your immunizations and boosters as scheduled If your symptoms worsen call your PCP, if no PCP go to Urgent Care Center or Emergency Room Smoking is Dangerous to Your Health. Avoid second hand smoke Call the 24-hour hour crisis hotline for domestic abuse at Violetta Reyna MD, R3 Mar 03, 2017 09:01
[2017-03-03] MEDS: INSULIN ASPART SUPPLEMENTAL SCALE SQ SCH (09:58)
[2017-03-03] MEDS: ASPIRIN 325 MG TAB PO SCH (09:58)
[2017-03-03 09:59] VITALS: O2SAT 98
[2017-03-03] MEDS: HYDROCHLOROTHIAZIDE 25 MG TAB PO SCH (10:01)
[2017-03-03] MEDS: DOCUSATE SODIUM 50 MG/SENNA 8.6 MG TAB PO SCH (10:02)
--- NOTE | 2017-03-03 10:57 | HHI.DS ---
Discharge Summary Admission Date Feb 26, 2017 at 15:00 Discharge Date: Mar 03, 2017 Admitting Diagnosis Acute CVA (1) Acute CVA (cerebrovascular accident) Diagnosis: Principal Plan: Presented under stroke alert due to headache, blurred vision, slurred speech, near syncope. Neurology assessed the patient and head CT was negative for acute bleed. TPA was given. Now, patient is improving and able to follow commands. She is more verbal today and can swallow -Frequent orientations of patient to self, time, and place. * avoid any sedating medications at this to to try and prevent worsening disorientation -PT/OT/ST ordered -cardiac echo: EF of 60-65%. Mild concentric left ventricular hypertrophy -TSH WNL Hematology consulted: appreciate recommendations * Given hx, suspect CAD, tobacco use, HLD, and DM are cause of stroke rather than pro thrombolic state at this time. * Will place orders for pro thrombolic work up if additional explanation is needed/warranted. Neurology consulted: appreciate recommendations * BP goal of 130-135/75-80 * started aspirin, no Plavix or anticoagulant for about a week. see Dr Myrick's note as she is at risk for bleed. CC signed off 02/28: Also concern for extracranial cervical occlusive disease Imaging: * Brain MRI: Scattered areas of restricted diffusion anomaly posterior fossa and left occipital lobe.Findings consistent with emboli. * Head CTA 02/26: no major branch vessel occlusion * Neck CTA 02/26: calcified atherosclerotic plaquing at the left carotid bifurcation causing some mild narrowing at the origin of the left internal carotid artery of about 40-50%. Mild atherosclerotic plaquing at the right carotid bifurcation. * Head CT 02/26 @1800: Evolving infarct in both cerebellar hemispheres and occipital lobes with chronic white matter changes. No new hemorrhage * Head CT 02/26 @ 1200: Negative for hemorrhage or acute process ICD Codes: I63.9 - Cerebral infarction, unspecified Status: Acute (2) HTN (hypertension) Plan: Hx of HTN. Called patient's pharmacy to confirm antihypertensive medications which shows only HCTZ 25mg daily -continue HCTZ 25mg daily hope to restart as she can take po now -consider add lisinopril 20mg daily if SBP>135 ICD Codes: I10 - Essential (primary) hypertension Status: Chronic (3) Diabetes Plan: Hx of DM. Metformin on reported medications. Pharmacy states that medication is there but patient had never picked it up. -A1c 9.6 -low dose sliding scale. -resume metformin as outpatient ICD Codes: E11.9 - Diabetes Status: Chronic (4) CAD (coronary artery disease) Plan: Hx of stent placement. Other risk factors include DM and HTN. Pharmacy reports pt was prescribe simvastatin but it was never picked up. -Start atorvastatin 40mg HS --Elevated LDL of 138 ICD Codes: I25.10 - Atherosclerotic heart disease of [place] coronary artery without angina pectoris Status: Chronic (5) Nutrition, metabolism, and development symptoms Plan: Diet: Diabetic diet plus speech recommendations Fluids: PO hydration Electrolytes: monitor and replace as needed. 40KCL x1 DVT PPX: no chemical anticoagulation due to TPA, SCDs GI PPX: H2 júnior ICD Codes: R63.8 - Other symptoms and signs concerning food and fluid intake Consultants Dag Coater Neurology Hematology Procedures TPA for acute stroke CBC/BMP: 03/02/17 0439 03/03/17 0530 Significant Findings Laboratory Tests Test 03/01/17 04:35 03/01/17 11:50 03/02/17 04:39 03/03/17 05:30 Blood Urea Nitrogen 22 MG/DL (7-18) 22 MG/DL (7-18) Random Glucose 181 MG/DL (74-106) 164 MG/DL (74-106) 336 MG/DL (74-106) Estimat Glomerular Filtration Rate 73 ML/MIN (>89) 83 ML/MIN (>89) 79 ML/MIN (>89) Hemoglobin A1c 9.6 % (4.3-6.0) White Blood Count 13.2 TH/MM3 (4.0-11.0) Neutrophils (%) (Auto) 72.6 % (16.0-70.0) Monocytes (%) (Auto) 10.2 % (0.0-8.0) Neutrophils # (Auto) 9.6 TH/MM3 (1.8-7.7) Monocytes # (Auto) 1.3 TH/MM3 (0-0.9) Neutrophils % (Manual) 74 % (16-70) Lymphocytes % 7 % (9-44) Monocytes % 11 % (0-8) Neutrophils # (Manual) 10.7 TH/MM3 (1.8-7.7) Myelocytes 1 % (0-0) Cholesterol Level 211 MG/DL (120-200) LDL Cholesterol 138 MG/DL (0-99) Calcium Level 8.0 MG/DL (8.5-10.1) Potassium Level 3.1 MEQ/L (3.5-5.1) Imaging Last Impressions Neck CTA 02/28/17 0000 Signed Impressions: Service Date/Time: Tuesday, February 28, 2017 10:57 - CONCLUSION: Stable CT of the head and neck with 40-50%% stenosis left internal carotid artery without thrombosis. Yfn Norton MD FACR Head CTA 02/28/17 0000 Signed Impressions: Service Date/Time: Tuesday, February 28, 2017 10:57 - CONCLUSION: 1. Unremarkable and stable CTA the brain compared to the prior examination. No definite vascular occlusion. Escobar Dailey MD Head CT 02/27/17 0000 Signed Impressions: Service Date/Time: Monday, February 27, 2017 12:45 - CONCLUSION: 1. Evolving posterior fossa and bilateral occipital lobe infarcts. No new hemorrhage. Charles Moctezuma MD Brain MRI 02/26/17 1254 Signed Impressions: Service Date/Time: Sunday, February 26, 2017 13:16 - CONCLUSION: Scattered areas of restricted diffusion anomaly posterior fossa and left occipital lobe. Findings would be consistent with emboli. Yfn Norton MD FACR PE at Discharge GEN: Well-developed, well-nourished patient. No acute distress. Laying comfortably in bed. Makes good eye contact. Able to turn head to orient to person speaking on the other side of the room. CV: Regular rate and rhythm without obvious murmurs LUNGS: Lungs clear to auscultation bilaterally. Normal respiratory effort. No wheezes, rales, rhonchi. GI: non distended EXT: No edema. No calf tenderness. NEURO/PSYCH: Awake, alert. Able to follow commands. Oriented to person but not fully to place and time. However, she is has improved since initial evaluation. Hospital Course Patient is a 56-year-old female with history significant for HTN, HLD, DM 2, CAD. Admitted for acute ischemic stroke that was preceded by episodes of transient right eye visual defects the day before. Received TPA on admission. Initially speech had improved after TPA but the deficit returned. Head CT was negative for acute bleed. MRI was significant for scattered areas of restricted diffusion anomaly posterior fossa and left occipital lobe. Findings were consistent with emboli. Echo was unremarkable. Hematology was consulted but does not suspect prothrombotic state as a contributing factor. Rather her comorbidities are the likely suspects. Patient initially continued to have visual defects and follow commands but then became agitated and required Precedex drip. Patient was then able to be weaned off of Precedex drip but then required soft restraints and did not follow commands but was able to protect her airway. Starting on 03/01, patient progressively improved and was able to follow commands more and more. Speech also continued to improve but she continued to have some symptoms of delirium that will worsen at night. However, conversationally patient improved. Patient was eventually able to pass swallow test and participate in PT/OT. Neurology recommended aspirin currently with the plan to start anticoagulation at a later date.Patient was then discharged to [facility] for continued therapy in stable condition for continued therapy. Pt Condition on Discharge: Stable Discharge Disposition: Rehab Inpatient Discharge Instructions DIET: Follow Instructions for: Diabetic Diet Speech Therapy-Diet Recommends: Other Activities you can perform: Regular-No Restrictions Follow up Referrals: Neurology - 1 Week with Andre Myrick MD PhD PCP Follow-up - 1 Week with Chago Riggs MD R2 [facility]/ @ [facility] New Medications: Aspirin (Px Aspirin) 325 Mg Tab 325 MG PO DAILY, #30 TAB Atorvastatin (Atorvastatin) 40 Mg Tab 40 MG PO HS, #30 TAB Continued Medications: Albuterol 18 GM Inh (Ventolin Hfa 18 GM Inh) 90 Mcg/Act Aer 2 PUFF INH Q4-6H PRN for SHORTNESS OF BREATH, #1 INHALER 0 Refills Hydrochlorothiazide (Hydrochlorothiazide) 25 Mg Tab 25 MG PO DAILY, #90 TAB 4 Refills Latanoprost Opth Drops (Latanoprost Opth Drops) 0.005% Drops 1 DROP EACH EYE HS for Glaucoma, #2.5 ML 0 Refills Refrigerate until opened. Metformin (Metformin) 500 Mg Tab 500 MG PO BIDPC for Blood Sugar Management, #180 TAB 4 Refills With meals Discontinued Medications: Acyclovir (Acyclovir) 200 Mg Cap 200 MG PO 5 TIMES A DAY for Mgmt Viral Infection, #25 CAP 10 Refills Amlodipine (Amlodipine) 5 Mg Tab 5 MG PO DAILY for Blood Pressure Management, #90 TAB 4 Refills Gabapentin (Gabapentin) 600 Mg Tab 600 MG PO TID, #90 TAB 0 Refills Ibuprofen (Ibuprofen) 600 Mg Tab 600 MG PO Q8HR PRN for PAIN, #21 TAB 0 Refills Lisinopril (Lisinopril) 40 Mg Tab 40 MG PO DAILY for Blood Pressure Management, #90 TAB 4 Refills Zolpidem (Ambien) 10 Mg Tab 10 MG PO HS PRN for INSOMNIA, #90 TAB 0 Refills Violetta Reyna MD, R3 Mar 03, 2017 10:57
[2017-03-03] MEDS ORDERED: FAMOTIDINE 20 MG TAB PO SCH (21:00)
== END 2017-03-03 11:42 | DRG 63 ==
LOC: NEPC 11:23 → NEDA 15:00 → N03B 16:47
PROVIDERS: ADMIT Surgery Surgical Critical Care; ATTEND Family Medicine
DX: I63.40 Cerebral infarction due to embolism of unspecified cerebral artery (principal); E11.65 Type 2 diabetes mellitus with hyperglycemia; I10 Essential (primary) hypertension; R29.705 NIHSS score 5; R47.81 Slurred speech; E78.5 Hyperlipidemia, unspecified; H53.40 Unspecified visual field defects; I25.10 Atherosclerotic heart disease of native coronary artery without angina pectoris; I65.22 Occlusion and stenosis of left carotid artery; J45.909 Unspecified asthma, uncomplicated; Z87.891 Personal history of nicotine dependence; Z79.82 Long term (current) use of aspirin; Z95.5 Presence of coronary angioplasty implant and graft; Z88.1 Allergy status to other antibiotic agents
CPT/HCPCS: 70450; 70496; 70498; 70551; 80048; 80061; 81001; 82550; 82552; 82948; 83036; 84443; 85007; 85027; 85610; 85730; 86850; 86900; 86901; 87641; 93005; 93306; 96361; 96365; 96375; J1815; J2270; J2405; J2997; J7030; Q9967

== ENCOUNTER 2017-06-02 20:03 | Inpatient (IN) | payer OTHER, BC ==
[~2017-06-02] VITALS: Ht 154.9 cm; Wt 78.6 kg
[~2017-06-02 20:03] MED LIST changes: +ACET325T15 PO; -ACYC200C66 PO; -AMBI10TA PO; -AMLO5TAB2 PO; +APIX5TAB PO; +ASA325 PO; -ASPI81TA23 PO; +ATOR40TA16 PO; -AZIT500T2 PO; +COMMODE 3-IN-11 MIS; +ECASA81 PO; +FAMO20TA2 PO; -GABA600T PO; +GETGO ROLLING W1 MI1; -IBUP-232 PO; +LATA0.002 EACH EYE; -LISI40TA PO; +METF500 PO; +PERI PO; -POTA1TAB4 PO; +POTA20TA5 PO; -PRED20 PO; -SIMV20TA PO
[2017-06-02 20:17] VITALS: BP 168/88; PULSE 88; RESP 20; TEMP 97.8; O2SAT 98
[2017-06-02 20:22] VITALS: BP_SYST 168; BP_SYST 177; BP_DIAS 82; BP_DIAS 88; PULSE 88; RESP 20; TEMP 98.2; O2SAT 98
[2017-06-02 20:23] VITALS: RESP 20
[2017-06-02] MEDS ORDERED: LIDOCAINE VISCOUS 2% SOLN 15 ML UDC PO ONE (20:30)
[2017-06-02] MEDS ORDERED: ASPIRIN 81 MG CHEW TAB PO ONE (20:30)
[2017-06-02] MEDS ORDERED: SODIUM CHLORIDE 0.9% FLUSH 10 ML FLUSH IVF PRN (20:30)
[2017-06-02] MEDS ORDERED: ALUMINUM/MAGNESIUM/SIMETH 30 ML CUP PO ONE (20:30)
--- NOTE | 2017-06-02 20:33 | PD ---
HPI Chief Complaint: Chest Pain Time Seen by Provider: 20:06 Travel History International Travel<30 days: No Contact w/Intl Traveler<30days: No Traveled to known affect area: No History of Present Illness HPI The patient is a 56-year-old female who presents to the emergency department via private vehicle for chest pain. The patient notes a 1-2 day history of substernal, nonradiating chest pain that she describes as burning. The chest pain is substernal, nonradiating, associated mild shortness of breath. She does complain of feeling warm but denies any nausea, vomiting, or diaphoresis. She does have a history of reflux with different symptoms. 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. The patient does have a history of previous CAD with stent placement, think she may have had a stress test at [facility] in the past, but is uncertain. 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 She does have a history of hospitalization the last 3 months. Symptoms are moderate. There are no current alleviating or exacerbating factors. She denies any change in her symptoms with exertional activity, eating, or lying supine. PFSH Past Medical History Hx Anticoagulant Therapy: Yes (ASA) Arthritis: No Asthma: No Autoimmune Disease: No Blood Disorders: No Anxiety: No Depression: No Heart Rhythm Problems: No Cancer: No Cardiac Catheterization: Yes Cardiovascular Problems: Yes High Cholesterol: Yes Chemotherapy: No Chest Pain: No Congestive Heart Failure: No COPD: No Cerebrovascular Accident: Yes Diabetes: Yes Patient Takes Glucophage: Yes Diminished Hearing: No Endocrine: Yes Gastrointestinal Disorders: Yes GERD: Yes Glaucoma: Yes Genitourinary: No Headaches: No Hiatal Hernia: No Heparin Induced Thrombocytopen: Yes Hypertension: Yes Immune Disorder: No Kidney Stones: No Musculoskeletal: No Neurologic: Yes Psychiatric: No Reproductive: No Respiratory: No Immunizations Current: Yes Migraines: No Radiation Therapy: No Renal Failure: No Seizures: No Sickle Cell Disease: No Sleep Apnea: No Thyroid Disease: Yes Ulcer: No Tetanus Vaccination: < 5 Years Influenza Vaccination: Yes ?: Not Menopausal: Yes : 3 Para: 2 Miscarriage: 1 : 0 Tubal Ligation: Yes Past Surgical History Abdominal Surgery: No AICD: No Arteriovenous Shunt: No Cardiac Surgery: No Coronary Stent: Yes Ear Surgery: No Endocrine Surgery: Yes Eye Surgery: No Genitourinary Surgery: No Gynecologic Surgery: Yes (c section) Insulin Pump: No Joint Replacement: No Oral Surgery: No Pacemaker: No Thoracic Surgery: No Other Surgery: Yes Social History Alcohol Use: No Tobacco Use: No (QUIT 1999) Substance Use: No Allergies-Medications (Allergen,Severity, Reaction): Coded Allergies: cefuroxime (Verified Allergy, Mild, Rash, 06/02/17) itchy rash on arms and legs Reported Meds & Prescriptions Reported Meds & Active Scripts Active Glucophage (Metformin HCl) 500 Mg Tab 1,000 Mg PO BIDPC 30 Days Famotidine 20 Mg Tab 20 Mg PO BID 30 Days Gnp Senna Plus 8.6-50 mg (Sennosides-Docusate Sodium) 8.6 Mg-50 Mg Tab 1 Tab PO BID 30 Days Potassium Chloride Microencaps 20 Meq Tab 20 Meq PO DAILY [address] (Aspirin) 81 Mg Tabdr 81 Mg PO DAILY 30 Days Eliquis (Apixaban) 5 Mg Tab 5 Mg PO BID 30 Days Walker Rolling/GetGo (Device) 1 Mis Mis Ea .XX DIRECTED Atorvastatin (Atorvastatin Calcium) 40 Mg Tab 40 Mg PO HS Ventolin Hfa 18 GM Inh (Albuterol Sulfate) 90 Mcg/Act Aer 2 Puff INH Q4-6H PRN Hydrochlorothiazide 25 Mg Tab 25 Mg PO DAILY Reported Latanoprost Opth Drops (Latanoprost) 0.005% Drops 1 Drop EACH EYE HS Refrigerate until opened. Review of Systems Except as stated in HPI: all other systems reviewed are Neg General / Constitutional: No: Fever HENT: No: Lightheadedness Cardiovascular: Positive: Chest Pain or Discomfort, No: Diaphoresis, Dyspnea on exertion Respiratory: Positive: Shortness of Breath Gastrointestinal: No: Nausea, Vomiting, Abdominal Pain Musculoskeletal: No: Weakness Neurologic: No: Dizziness Physical Exam Narrative GENERAL: Awake, alert, pleasant 56-year-old female who appears her stated age and is in no acute respiratory distress. SKIN: Focused skin assessment warm/dry. HEAD: Atraumatic. Normocephalic. EYES: No injection or drainage. ENT: No nasal bleeding or discharge. Mucous membranes pink and moist. NECK: Trachea midline. No JVD. CARDIOVASCULAR: Regular rate and rhythm. No murmur appreciated. Heart rate in the 90s. Palpation the chest wall reproduces pain. RESPIRATORY: No accessory muscle use. Clear to auscultation. Breath sounds equal bilaterally. GASTROINTESTINAL: Abdomen soft, non-tender, nondistended. No rebound tenderness. No epigastric tenderness. No guarding or rigidity. MUSCULOSKELETAL: No obvious deformities. No clubbing. No cyanosis. No edema. NEUROLOGICAL: Awake and alert. No obvious cranial nerve deficits. Motor grossly within normal limits. Normal speech. PSYCHIATRIC: Appropriate mood and affect; insight and judgment normal. Data Data Last Documented VS Vital Signs Date Time Temp Pulse Resp B/P (MAP) Pulse Ox O2 Delivery O2 Flow Rate FiO2 06/02/17 22:00 98.0 82 20 156/72 (100) 98 Room Air Orders Orders Electrocardiogram (06/02/17 20:20) Ckmb (Isoenzyme) Profile (06/02/17 20:20) Complete Blood Count With Diff (06/02/17 20:20) Comprehensive Metabolic Panel (06/02/17 20:20) Magnesium (Mg) (06/02/17 20:20) Prothrombin Time / Inr (Pt) (06/02/17 20:20) Act Partial Throm Time (Ptt) (06/02/17 20:20) Troponin I (06/02/17 20:20) Lipase (06/02/17 20:20) Chest, Single Ap (06/02/17 20:20) Ecg Monitoring (06/02/17 20:20) Bilateral Bp Monitoring (06/02/17 20:20) Iv Access Insert/Monitor (06/02/17 20:20) Oximetry (06/02/17 20:20) Oxygen Administration (06/02/17 20:20) Aspirin Chew (Aspirin Chew) (06/02/17 20:30) Sodium Chloride 0.9% Flush (Ns Flush) (06/02/17 20:30) Ct Pulmonary Angiogram (06/02/17 20:20) Al-Mag Hy-Si 40-40-4 Mg/Ml Liq (Mag-Al P (06/02/17 20:30) Lidocaine 2% Viscous (Xylocaine 2% Visco (06/02/17 20:30) CKMB (06/02/17 20:36) CKMB% (06/02/17 20:36) Iohexol 350 Inj (Omnipaque 350 Inj) (06/02/17 21:49) Admit Order (Ed Use Only) (06/02/17 22:33) Labs Laboratory Tests Test 06/02/17 20:36 White Blood Count 9.2 TH/MM3 Red Blood Count 5.29 MIL/MM3 Hemoglobin 15.3 GM/DL Hematocrit 44.5 % Mean Corpuscular Volume 84.1 FL Mean Corpuscular Hemoglobin 29.0 PG Mean Corpuscular Hemoglobin Concent 34.4 % Red Cell Distribution Width 13.5 % Platelet Count 309 TH/MM3 Mean Platelet Volume 8.7 FL Neutrophils (%) (Auto) 57.8 % Lymphocytes (%) (Auto) 29.4 % Monocytes (%) (Auto) 10.1 % Eosinophils (%) (Auto) 1.9 % Basophils (%) (Auto) 0.8 % Neutrophils # (Auto) 5.3 TH/MM3 Lymphocytes # (Auto) 2.7 TH/MM3 Monocytes # (Auto) 0.9 TH/MM3 Eosinophils # (Auto) 0.2 TH/MM3 Basophils # (Auto) 0.1 TH/MM3 CBC Comment DIFF FINAL Differential Comment Prothrombin Time 10.1 SEC Prothromb Time International Ratio 1.0 RATIO Activated Partial Thromboplast Time 26.4 SEC Blood Urea Nitrogen 18 MG/DL Creatinine 0.95 MG/DL Random Glucose 125 MG/DL Total Protein 8.4 GM/DL Albumin 4.1 GM/DL Calcium Level 10.2 MG/DL Magnesium Level 1.8 MG/DL Alkaline Phosphatase 141 U/L Aspartate Amino Transf (AST/SGOT) 30 U/L Alanine Aminotransferase (ALT/SGPT) 36 U/L Total Bilirubin 0.3 MG/DL Sodium Level 139 MEQ/L Potassium Level 3.6 MEQ/L Chloride Level 100 MEQ/L Carbon Dioxide Level 27.8 MEQ/L Anion Gap 11 MEQ/L Estimat Glomerular Filtration Rate 61 ML/MIN Total Creatine Kinase 129 U/L Creatine Kinase MB 1.2 NG/ML Troponin I LESS THAN 0.02 NG/ML Lipase 126 U/L MDM Medical Decision Making Medical Screen Exam Complete: Yes Emergency Medical Condition: Yes Medical Record Reviewed: Yes Interpretation(s) EKG reveals normal sinus rhythm with a rate of 99. RSR prime in V1. Left anterior fascicular block. Last Impressions Chest X-Ray 06/02/172019 Signed Impressions: Service Date/Time: Friday, June 02, 2017 20:33 - CONCLUSION: No acute disease. Mian Garcia MD CT Angiography 06/02/172019 Signed Impressions: Service Date/Time: Friday, June 02, 2017 21:47 - CONCLUSION: 1. No evidence for pulmonary embolism. 2. No infiltrate. Mian Garcia MD Laboratory Tests Test 06/02/17 20:36 White Blood Count 9.2 TH/MM3 Red Blood Count 5.29 MIL/MM3 Hemoglobin 15.3 GM/DL Hematocrit 44.5 % Mean Corpuscular Volume 84.1 FL Mean Corpuscular Hemoglobin 29.0 PG Mean Corpuscular Hemoglobin Concent 34.4 % Red Cell Distribution Width 13.5 % Platelet Count 309 TH/MM3 Mean Platelet Volume 8.7 FL Neutrophils (%) (Auto) 57.8 % Lymphocytes (%) (Auto) 29.4 % Monocytes (%) (Auto) 10.1 % Eosinophils (%) (Auto) 1.9 % Basophils (%) (Auto) 0.8 % Neutrophils # (Auto) 5.3 TH/MM3 Lymphocytes # (Auto) 2.7 TH/MM3 Monocytes # (Auto) 0.9 TH/MM3 Eosinophils # (Auto) 0.2 TH/MM3 Basophils # (Auto) 0.1 TH/MM3 CBC Comment DIFF FINAL Differential Comment Prothrombin Time 10.1 SEC Prothromb Time International Ratio 1.0 RATIO Activated Partial Thromboplast Time 26.4 SEC Blood Urea Nitrogen 18 MG/DL Creatinine 0.95 MG/DL Random Glucose 125 MG/DL Total Protein 8.4 GM/DL Albumin 4.1 GM/DL Calcium Level 10.2 MG/DL Magnesium Level 1.8 MG/DL Alkaline Phosphatase 141 U/L Aspartate Amino Transf (AST/SGOT) 30 U/L Alanine Aminotransferase (ALT/SGPT) 36 U/L Total Bilirubin 0.3 MG/DL Sodium Level 139 MEQ/L Potassium Level 3.6 MEQ/L Chloride Level 100 MEQ/L Carbon Dioxide Level 27.8 MEQ/L Anion Gap 11 MEQ/L Estimat Glomerular Filtration Rate 61 ML/MIN Total Creatine Kinase 129 U/L Creatine Kinase MB 1.2 NG/ML Troponin I LESS THAN 0.02 NG/ML Lipase 126 U/L Differential Diagnosis Differential diagnosis includes acute coronary syndrome, pulmonary embolism, GERD, esophageal spasm, gastritis, pancreatitis, dissection. Narrative Course IV was established, labs are drawn and sent, and the patient was placed on cardiac telemetry monitoring and continuous pulse oximetry monitoring. EKG was ordered and interpreted. Chest x-ray was obtained. The patient appears to be on Eliquis twice a day for a previous embolic CVA, however, has tachycardia, chest pain, shortness of breath, and RSR prime in V1. Unsure if she has hypercoagulable disorder and this could be pulmonary embolism versus reflux versus atypical ACS. Therefore, CT pulmonary angiogram was ordered. Chest x- ray reveals no acute disease. I did review the patient's EMR, the patient did have a cardiac catheterization that was performed by Dr. Fagan in 2007 which revealed a patent stent and mild to moderate disease, however, no intervention was performed at that time. I cannot find any evidence of stress test, treadmill or nuclear medicine, on the EMR from [address] pulmonary angiogram was negative. The patient will be 23 hour observation to the chest pain center for serial cardiac enzymes and further evaluation by cardiology. The patient and family are comfortable with this plan of care and disposition. Physician Communication Physician Communication The patient will be a 23 hour observation to the chest pain center for serial cardiac enzymes and further evaluation by cardiology. Diagnosis Primary Impression: Chest pain Qualified Codes: R07.9 - Chest pain, unspecified Admitting Information Admitting Physician Requests: Observation Condition: Stable Tyson Guadarrama MD Jun 02, 2017 20:33
--- NOTE | 2017-06-02 20:47 | RADRPT ---
EXAM DATE/TIME: 06/02/2017 20:33 [facility] COMPARISON: No previous studies available for comparison. INDICATIONS : Patient complains of chest pain in area of sternum. MEDICAL HISTORY : Emphysema. SURGICAL HISTORY : None. ENCOUNTER: Initial ACUITY: 3 days PAIN SCORE: 5/10 LOCATION: chest FINDINGS: A single view of the chest demonstrates the lungs to be symmetrically aerated without evidence of mas s, infiltrate or effusion. The cardiomediastinal contours are unremarkable. Osseous structures are intact. CONCLUSION: No acute disease. Mian Garcia MD on June 02, 2017 at 20:45 Board Certified Radiologist. This report was verified electronically.
[2017-06-02 20:57] LABS: AUTOMATED NEUTROPHIL # 5.3 TH/MM3 (1.8-7.7); BASOPHIL # 0.1 TH/MM3 (0-0.2); BASOPHIL % 0.8 % (0.0-2.0); EOSINOPHIL # 0.2 TH/MM3 (0-0.4); EOSINOPHIL % 1.9 % (0.0-4.0); HEMATOCRIT 44.5 % (35.0-46.0); HEMOGLOBIN 15.3 GM/DL (11.6-15.3); LYMPH % 29.4 % (9.0-44.0); LYMPHOCYTE # 2.7 TH/MM3 (1.0-4.8); MEAN CELL VOLUME 84.1 FL (80.0-100.0); MEAN CORPUSCULAR HGB CONC 34.4 % (32.0-36.0); MEAN PLATELET VOLUME 8.7 FL (7.0-11.0); MONO % 10.1 % (0.0-8.0); MONOCYTE # 0.9 TH/MM3 (0-0.9); NEUT % 57.8 % (16.0-70.0); PLATELET COUNT 309 TH/MM3 (150-450); RED BLOOD COUNT 5.29 MIL/MM3 (4.00-5.30); RED CELL DISTRIBUTION WIDTH 13.5 % (11.6-17.2); WHITE BLOOD COUNT 9.2 TH/MM3 (4.0-11.0)
[2017-06-02 21:10] LABS: PROTHROMBIN TIME - PATIENT 10.1 SEC (9.8-11.6)
[2017-06-02 21:15] LABS: ALT (GPT) 36 U/L (10-53)
[2017-06-02 21:29] LABS: ALBUMIN 4.1 GM/DL (3.4-5.0); ALKALINE PHOSPHATASE 141 U/L (45-117); AST (GOT) 30 U/L (15-37); BICARBONATE 27.8 MEQ/L (21.0-32.0); BLOOD UREA NITROGEN 18 MG/DL (7-18); CALCIUM 10.2 MG/DL (8.5-10.1); CHLORIDE 100 MEQ/L (98-107); CREATININE 0.95 MG/DL (0.50-1.00); GLOMERULAR FILTRATION RATE 61 ML/MIN (>89); GLUCOSE,RANDOM 125 MG/DL (74-106); MAGNESIUM 1.8 MG/DL (1.5-2.5); SODIUM (NA) 139 MEQ/L (136-145); TOTAL BILIRUBIN ADULT 0.3 MG/DL (0.2-1.0); TOTAL PROTEIN 8.4 GM/DL (6.4-8.2); TROPONIN I LESS THAN 0.02 NG/ML (0.02-0.05)
[2017-06-02] MEDS ORDERED: IOHEXOL 350 MG/ML 10 ML VIAL (for RAD DIAG) IVCONTRAST ONE (21:49)
--- NOTE | 2017-06-02 21:58 | RADRPT ---
EXAM DATE/TIME: 06/02/2017 21:47 [facility] COMPARISON: No previous studies available for comparison. INDICATIONS : Chest pain X 2 days; rule out pulmonary embolus. IV CONTRAST: 80 cc Omnipaque 350 (iohexol) IV RADIATION DOSE: 21.92 CTDIvol (mGy) MEDICAL HISTORY : Cardiovascular disease. Hypertension. Gastroesophageal reflux disease.Diabetes SURGICAL HISTORY : section. Tubal ligation. ENCOUNTER: Initial ACUITY: 2 days PAIN SCALE: 6/10 LOCATION: chest TECHNIQUE: Volumetric scanning of the chest was performed using a pulmonary embolism protocol MIP images were re constructed. Using automated exposure control and adjustment of the mA and/or kV according to patien t size, radiation dose was kept as low as reasonably achievable to obtain optimal diagnostic quality images. DICOM format image data is available electronically for review and comparison. Follow-up recommendations for detected pulmonary nodules are based at a minimum on nodule size and pa tient risk factors according to Fleischner Society Guidelines. FINDINGS: PULMONARY ARTERIES: No filling defects are seen in the pulmonary arteries through the segmental level. LUNGS: There is no consolidation or pneumothorax . No concerning pulmonary nodule is visualized. PLEURAE: There is no pleural thickening or pleural effusion. MEDIASTINUM: There is good visualization of the great vessels of the middle mediastinum. No evidence of mediastin al or hilar adenopathy/mass. Carotid calcifications. MUSCULOSKELETAL: Within normal limits for patient age. MISCELLANEOUS: The visualized upper abdominal organs demonstrate no acute abnormality. CONCLUSION: 1. No evidence for pulmonary embolism. 2. No infiltrate. Mian Garcia MD on June 02, 2017 at 21:54 Board Certified Radiologist. This report was verified electronically.
[2017-06-02 22:00] VITALS: BP 156/72; PULSE 82; RESP 20; TEMP 98; O2SAT 98
[2017-06-02] MEDS ORDERED: NITROGLYCERIN 0.4 MG SL 25 TABS/BTL SL PRN (22:45)
[2017-06-02] MEDS ORDERED: MORPHINE SULFATE 2 MG/ML SYRINGE IV PUSH PRN (22:45)
[2017-06-02] MEDS ORDERED: SODIUM CHLORIDE 0.9% FLUSH 10 ML FLUSH IV FLUSH PRN (22:45)
[2017-06-02] MEDS ORDERED: ACETAMINOPHEN/HYDROcodone 325 MG/7.5 MG TAB PO PRN (22:45)
[2017-06-02] MEDS ORDERED: ONDANSETRON HCL 4 MG/2 ML VIAL IV PUSH PRN (22:45)
[2017-06-02 23:00] VITALS: O2SAT 98
[2017-06-03] VITALS (11 sets, daily range): BP systolic 115–156; BP diastolic 65–85; PULSE 73–94; RESP 16–20; TEMP 97.6–98.6; O2SAT 94–98
--- NOTE | 2017-06-03 00:02 | EKG ---
Date Performed: 06/02/2017 Time Performed: 20:10:48 PTAGE: 56 years EKG: Sinus rhythm POSSIBLE LEFT ATRIAL ENLARGEMENT PATTERN CONSISTENT WITH PULMONARY DISEASE POSSIBLE RIGHT VENTRICULA R CONDUCTION DELAY LEFT ANTERIOR FASCICULAR BLOCK LEFT VENTRICULAR HYPERTROPHY AND ST-T CHANGE POSSIB LE SEPTAL MYOCARDIAL INFARCTION ABNORMAL ECG PREVIOUS TRACING : 02/26/2017 13.42 Since the previous tracing, no significant change noted DOCTOR: Maverick Willingham Interpretating Date/Time 06/03/2017 00:00:50
[2017-06-03 00:07] LABS: TROPONIN I LESS THAN 0.02 NG/ML (0.02-0.05)
[2017-06-03 03:01] LABS: TROPONIN I LESS THAN 0.02 NG/ML (0.02-0.05)
[2017-06-03] MEDS: ACETAMINOPHEN 500 MG CPLT PO PRN ×2 (08:29→20:16)
[2017-06-03] MEDS: SODIUM CHLORIDE 0.9% FLUSH 10 ML FLUSH IV FLUSH SCH ×2 (08:30→20:11)
[2017-06-03] MEDS ORDERED: ASPIRIN 325 MG TAB PO SCH (09:00)
--- NOTE | 2017-06-03 09:59 | HHI.HP ---
HPI Primary Care Physician Chago Riggs MD Chief Complaint Chest pain History of Present Illness 56 year old female with history of CVA (February 2017), CAD x1 cardiac stent, type II diabetes, hyperlipidemia, and hypertension presents emergency room for further evaluation of chest pain. Onset yesterday 9 AM. Location substernal. Characterized as pressure. Severity mild. No radiation of pain. Associated symptoms included diaphoresis. Denies nausea, vomiting, or shortness of breath. No known precipitating or relieving factors. Describes chest pain episodes as quick onset, lasting 2 minutes before completely resolving, followed by discomfort returning within 2-5 minutes. Chest discomfort cycles continued all day yesterday, therefore due to past CAD came to ER for further evaluation. Currently chest pain free. Review of Systems General: No fatigue,weakness, fever, chills, or recent illness. Has been in her general state of health since CVA February 2017, continuing home rehab weekly. HEENT: History of chronic KEMP, vision change s/p CVA reporting peripheral vision distorted. No dysphasia CV: As stated above. No current CP or pressure. No palpitations or dizziness. Reports carotids have some blockages, but not severe enough for intervention. History of cardiac stent 2005. RESP: No SOB, cough, wheeze, or recent URI. Former smoker. GI: No nausea, vomiting, bowel changes, diarrhea, constipation, pain, distention , melena, or blood in the stool. : No dysuria, urgency, frequency EXT: No lower leg edema, Right leg remains slightly weaker since CVA, reporting balance issues. MS: No discomfort, injury, trauma, or change in ROM NEURO: No change in memory, LOC. Reports cause of CVA undetermined. PSYCH: No anxiety, depression, suicidal ideation SKIN: No rashes, no concerning lesions Past Family Social History Allergies: Coded Allergies: cefuroxime (Verified Allergy, Mild, Rash, 06/02/17) itchy rash on arms and legs Past Medical History CAD, x1 cardiac stent, hyperlipidemia, hypertension, diabetes type II, CVA Past Surgical History Tubal ligation, Reported Medications Reported Meds & Active Scripts Active Glucophage (Metformin HCl) 500 Mg Tab 1,000 Mg PO BIDPC 30 Days Famotidine 20 Mg Tab 20 Mg PO BID 30 Days Eliquis (Apixaban) 5 Mg Tab 5 Mg PO BID 30 Days Atorvastatin (Atorvastatin Calcium) 40 Mg Tab 40 Mg PO HS Hydrochlorothiazide 25 Mg Tab 25 Mg PO DAILY Lantus 5 units SQ daily Active Ordered Medications Current Medications Medications (Trade) Dose Ordered Sig/Rama Route Start Time Stop Time Status Last Admin (NS Flush) 2 ml UNSCH PRN IV FLUSH 06/02/17 22:45 (NS Flush) 2 ml BID IV FLUSH 06/03/17 09:00 06/03/17 08:30 (Tylenol) 500 mg Q4H PRN PO 06/02/17 22:45 06/03/17 08:29 ([place] 7.5-325 Mg) 1 tab Q4H PRN PO 06/02/17 22:45 (Morphine Inj) 2 mg Q4H PRN IV PUSH 06/02/17 22:45 (Zofran Inj) 4 mg Q6H PRN IV PUSH 06/02/17 22:45 (Nitrostat Sl) 0.4 mg Q5M PRN SL 06/02/17 22:45 (Aspirin) 325 mg DAILY PO 06/03/17 09:00 06/03/17 08:30 Family History Noncontributory for early onset cardiovascular disease. Social History Known coronary artery disease, diabetes, hypertension, and hyperlipidemia. Former smoker, quitting 18 years ago. 60 pack year yesterday. Denies any alcohol or illegal drug use. . Endorses daily physical rehab going well. Past cardiac testing No recent cardiac testing. Follows with Dr. Mascorro. 06/25/2007 Cardiac Catheterization (Dr. Mascorro) Conclusions: 1. Moderate disease of the mid LAD, confirmed by intravascular ultrasound to be not significant enough to intervene, otherwise mild to moderate disease of the rest of the LAD. 2. Widely patent stent site of the mid circumflex with mild disease of the circumflex. Moderate disease of the minute obtuse marginal branch jailed from that mid circumflex stent. 3. Mild disease of the RCA in a dominant RCA system. 4. Normal left ventricular systolic function. 5. Elevated left ventricular end diastolic pressure. 2005 Stent placed to left circumflex Physical Exam Vital Signs Vital Signs Date Time Temp Pulse Resp B/P (MAP) Pulse Ox O2 Delivery O2 Flow Rate FiO2 06/03/17 08:03 97.8 84 16 129/76 (93) 95 06/03/17 04:07 98.3 76 17 118/65 (82) 95 06/03/17 03:45 73 06/03/17 02:22 76 06/03/17 00:26 97.9 84 16 115/75 (88) 98 06/02/17 23:00 98 06/02/17 22:00 98.0 82 20 156/72 (100) 98 Room Air 06/02/17 20:23 Room Air 06/02/17 20:23 20 06/02/17 20:22 98.2 88 20 168/88 (114) 98 Room Air 177/82 (113) 06/02/17 20:17 97.8 88 20 168/88 (114) 98 Room Air Physical Exam GENERAL: Alert WN, WD, NAD, pleasant, , moderately obese female HEAD: NC, AT ENT: Mucous membranes pink and moist NECK: Supple, no masses, trachea midline CV: RRR, without murmur, rub, gallop, no JVD, S1-S2 no S3-S4. No carotid or femoral bruits. Chest wall nontender with palpations. RESP: Clear lungs throughout bilateral, no crackles, wheeze, rhonchi, symmetrical chest rise, nonlabored, able to speak in full sentences ABD: Soft, NT, ND, no masses, positive bowel tones EXT: Pulses +2x4, no dependent edema MS: Normal tone x4 extremities, no obvious deformities, full range of motion NEURO: CN II through CN XII grossly intact, motor strength 5/5 PSYCH: A+O x3, pleasant affect, appropriate speech, mood, insight and judgment SKIN: Normal turgor, normal texture, no lesions, no rashes, even hair distribution Laboratory Laboratory Tests Test 06/02/17 20:36 06/02/17 23:27 06/03/17 02:16 White Blood Count 9.2 Red Blood Count 5.29 Hemoglobin 15.3 Hematocrit 44.5 Mean Corpuscular Volume 84.1 Mean Corpuscular Hemoglobin 29.0 Mean Corpuscular Hemoglobin Concent 34.4 Red Cell Distribution Width 13.5 Platelet Count 309 Mean Platelet Volume 8.7 Neutrophils (%) (Auto) 57.8 Lymphocytes (%) (Auto) 29.4 Monocytes (%) (Auto) 10.1 Eosinophils (%) (Auto) 1.9 Basophils (%) (Auto) 0.8 Neutrophils # (Auto) 5.3 Lymphocytes # (Auto) 2.7 Monocytes # (Auto) 0.9 Eosinophils # (Auto) 0.2 Basophils # (Auto) 0.1 CBC Comment DIFF FINAL Differential Comment Prothrombin Time 10.1 Prothromb Time International Ratio 1.0 Activated Partial Thromboplast Time 26.4 Blood Urea Nitrogen 18 Creatinine 0.95 Random Glucose 125 Total Protein 8.4 Albumin 4.1 Calcium Level 10.2 Magnesium Level 1.8 Alkaline Phosphatase 141 Aspartate Amino Transf (AST/SGOT) 30 Alanine Aminotransferase (ALT/SGPT) 36 Total Bilirubin 0.3 Sodium Level 139 Potassium Level 3.6 Chloride Level 100 Carbon Dioxide Level 27.8 Anion Gap 11 Estimat Glomerular Filtration Rate 61 Total Creatine Kinase 129 116 149 Creatine Kinase MB 1.2 1.4 1.5 Troponin I LESS THAN 0.02 LESS THAN 0.02 LESS THAN 0.02 Lipase 126 Result Diagram: 06/02/17203506/02/172035 Imaging Last 48 hours Impressions Myocardial Perfusion Scan Nuc Med 06/03/17 0000 Signed Impressions: Service Date/Time: Saturday, June 03, 2017 11:21 - CONCLUSION: Borderline to mild ischemia at the apex and apical portion of the anterolateral wall. RISK CATEGORY: Low (<1%% Annual Mortality Rate) Chucho Olmos MD Chest X-Ray 06/02/172019 Signed Impressions: Service Date/Time: Friday, June 02, 2017 20:33 - CONCLUSION: No acute disease. Mian Garcia MD CT Angiography 06/02/172019 Signed Impressions: Service Date/Time: Friday, June 02, 2017 21:47 - CONCLUSION: 1. No evidence for pulmonary embolism. 2. No infiltrate. Mian Garcia MD Course EKG NSR, LAD, septal Q waves, nonspecific T wave changes Caprini VTE Risk Assessment Caprini VTE Risk Assessment: No/Low Risk (score <= 1) Caprini Risk Assessment Model Point Value = 1 Point Value = 2 Point Value = 3 Point Value = 5 Age 41-60 Minor surgery BMI > 25 kg/m2 Swollen legs Varicose veins or History of unexplained or recurrent spontaneous Oral contraceptives or hormone replacement Sepsis (< 1 month) Serious lung disease, including pneumonia (< 1 month) Abnormal pulmonary function Acute myocardial infarction Congestive heart failure (< 1 month) History of inflammatory bowel disease Medical patient at bed rest Age 61-74 Arthroscopic surgery Major open surgery (> 45 min) Laparoscopic surgery (> 45 min) Malignancy Confined to bed (> 72 hours) Immobilizing plaster cast Central venous access Age >= 75 History of VTE Family history of VTE Factor V Leiden Prothrombin [id number] Lupus anticoagulant Anticardiolipin antibodies Elevated serum homocysteine Heparin-induced thrombocytopenia Other congenital or acquired thrombophilia Stroke (< 1 month) Elective arthroplasty Hip, pelvis, or leg fracture Acute spinal cord injury (< 1 month) Prophylaxis Regimen Total Risk Factor Score Risk Level Prophylaxis Regimen 0-1 Low Early ambulation 2 Moderate Order ONE of the following: *Sequential Compression Device (SCD) *Heparin 5000 units SQ BID 3-4 Higher Order ONE of the following medications: *Heparin 5000 units SQ TID *Enoxaparin/Lovenox 40 mg SQ daily (WT < 150 kg, CrCl > 30 mL/min) *Enoxaparin/Lovenox 30 mg SQ daily (WT < 150 kg, CrCl > 10-29 mL/min) *Enoxaparin/Lovenox 30 mg SQ BID (WT < 150 kg, CrCl > 30 mL/min) AND/OR *Sequential Compression Device (SCD) 5 or more Highest Order ONE of the following medications: *Heparin 5000 units SQ TID (Preferred with Epidurals) *Enoxaparin/Lovenox 40 mg SQ daily (WT < 150 kg, CrCl > 30 mL/min) *Enoxaparin/Lovenox 30 mg SQ daily (WT < 150 kg, CrCl > 10-29 mL/min) *Enoxaparin/Lovenox 30 mg SQ BID (WT < 150 kg, CrCl > 30 mL/min) AND *Sequential Compression Device (SCD) Assessment and Plan Assessment and Plan #1Chest pain-admitted to chest pain center. Ruled out with 3 sets of EKGs, cardiac enzymes, and monitored on telemetry overnight. Seen and evaluated by Dr. Jason Nuñez. Proceed with Lexiscan this morning due to multiple risk factors. Patient is agreeable to plan of care. Further disposition to follow results of Lexiscan. #2 History of CAD-continue atorvastatin, Lexiscan this am. #3 History of hypertension-continue HCTZ #4 History of type II diabetes-hold metformin, begin SSI low dose coverage #5 History of CVA-continue Eliquis Slatinsky,Jing ROTARY HELPER Jun 03, 2017 09:59
[2017-06-03] MEDS ORDERED: DEXTROSE 50% IN WATER 50 ML VIAL(D50) IV PUSH PRN (10:00)
[2017-06-03] MEDS ORDERED: GLUCAGON 1 MG/ML VIAL OTHER PRN (10:00)
[2017-06-03] MEDS: APIXABAN 5 MG TABLET PO SCH ×2 (10:13→20:12)
[2017-06-03] MEDS: HYDROCHLOROTHIAZIDE 25 MG TAB PO SCH (10:14)
[2017-06-03] MEDS: FAMOTIDINE 20 MG TAB PO SCH ×2 (10:14→20:12)
[2017-06-03] MEDS ORDERED: REGADENOSON INJ 0.4 MG/5 ML SYR ONE (11:16)
--- NOTE | 2017-06-03 13:02 | RADRPT ---
EXAM DATE/TIME: 06/03/2017 11:21 [facility] COMPARISON: CT PULMONARY ANGIOGRAM, June 02, 2017, 21:47. CHEST SINGLE AP, June 02, 2017, 20:33. INDICATIONS : Mid chest pain for two days. Angina. Coronary artery disease. DOSE: 25.5 mCi Tc99m Myoview at stress. 8.7 mCi Tc99m Myoview at rest. 0.4 mg Lexiscan STRESS SYMPTOMS: None noted. EJECTION FRACTION: 58% MEDICAL HISTORY : Diabetes mellitus type 2. Hypertension. Gastroesophageal reflux disease. SURGICAL HISTORY : Coronary artery stent. section. ENCOUNTER: Initial ACUITY: 2 days PAIN SCALE: 5/10 LOCATION: chest TECHNIQUE: The patient underwent pharmacologic stress with infusion of prescribed dose. Continuous ECG tracing was monitored during stress. Gated SPECT imaging was performed after stress and conventional SPECT i maging was performed at rest. The examination was performed on a SPECT/CT scanner, both attenuation and non-corrected datasets were reviewed. FINDINGS: DISTRIBUTION: The maximum perfused segment at stress is in the septal wall. PERFUSION STUDY: There is mild decreased activity in the apex and apical portion of the anterior lateral wall on stres s images. These areas demonstrate normal activity on the rest images. This is in the order of 10-20%. The activity overall is decreased on the non-attenuated corrected images on the stress images compar ed to the rest images. GATED STUDY: There is intact wall motion and thickening without hypokinetic or dyskinetic segments. CONCLUSION: Borderline to mild ischemia at the apex and apical portion of the anterolateral wall. RISK CATEGORY: Low (<1% Annual Mortality Rate) Chucho Olmos MD on June 03, 2017 at 12:51 Board Certified Radiologist. This report was verified electronically.
[2017-06-03] MEDS: INSULIN ASPART SUPPLEMENTAL SCALE SQ SCH ×3 (13:30→21:00)
--- NOTE | 2017-06-03 13:48 | TR ---
Date Performed: 06/03/2017 Time Performed: 11:45:55 DOCTOR: Jason Nuñez DRUG LIST: CLINICAL HISTORY: ANGINA REASON FOR TEST: Angina REASON FOR ENDING: OBSERVATION: CONCLUSION: COMMENTS: Lexiscan stress test was performed under standard four minute protocol. Radionuclide was injected one minute prior to ending the test. No electrocardiographic abormalities were present t o suggest ischemia. Nuclear imaging and interpretation are pending.
--- NOTE | 2017-06-03 13:51 | EKG ---
Date Performed: 06/03/2017 Time Performed: 02:47:16 PTAGE: 56 years EKG: Sinus rhythm LOW QRS VOLTAGE IN PRECORDIAL LEADS POSSIBLE RIGHT VENTRICULAR CONDUCTION DELAY LEFT ANTERIOR FASCIC ULAR BLOCK Poor R wave progression ABNORMAL ECG PREVIOUS TRACING : 06/02/2017 20.10 Since previous tracing, no significant change noted DOCTOR: Jason Nuñez Interpretating Date/Time 06/03/2017 13:50:05
[2017-06-03] MEDS: ATORVASTATIN 40 MG TAB PO SCH (20:11)
[2017-06-04] VITALS (11 sets, daily range): BP systolic 123–146; BP diastolic 69–79; PULSE 65–84; RESP 16–18; TEMP 97.6–98.1; O2SAT 95–98
[2017-06-04] MEDS: FAMOTIDINE 20 MG TAB PO SCH ×2 (07:59→21:38)
[2017-06-04] MEDS: HYDROCHLOROTHIAZIDE 25 MG TAB PO SCH (07:59)
[2017-06-04] MEDS: APIXABAN 5 MG TABLET PO SCH (08:00)
[2017-06-04] MEDS: SODIUM CHLORIDE 0.9% FLUSH 10 ML FLUSH IV FLUSH SCH ×2 (08:00→21:40)
[2017-06-04] MEDS: INSULIN ASPART SUPPLEMENTAL SCALE SQ SCH ×4 (08:00→21:40)
--- NOTE | 2017-06-04 08:19 | HHI.FPPN ---
Subjective Remarks Pt seen and examined this morning. No acute events overnight. Medicine team consulted due to abnormal stress test results, final reports pending. Objective Vitals Vital Signs Date Time Temp Pulse Resp B/P (MAP) Pulse Ox O2 Delivery O2 Flow Rate FiO2 06/04/17 03:58 65 06/04/17 00:35 98.1 69 16 131/77 (95) 96 06/04/17 00:00 69 06/03/17 22:00 16 06/03/17 20:01 98.6 92 20 156/85 (108) 96 06/03/17 20:00 94 06/03/17 16:00 77 06/03/17 15:20 98.1 83 16 128/82 (97) 94 06/03/17 12:38 97.6 83 16 126/80 (95) 98 Result Diagram: 06/02/17203506/02/172035 Objective Remarks GENERAL: Alert WN, WD, NAD, pleasant, , moderately obese female HEAD: NC, AT ENT: Mucous membranes pink and moist NECK: Supple, no masses, trachea midline CV: RRR, without murmur, rub, gallop, no JVD, S1-S2 no S3-S4. No carotid or femoral bruits. Chest wall nontender with palpations. RESP: Clear lungs throughout bilateral, no crackles, wheeze, rhonchi, symmetrical chest rise, nonlabored, able to speak in full sentences ABD: Soft, NT, ND, no masses, positive bowel tones EXT: Pulses +2x4, no dependent edema MS: Normal tone x4 extremities, no obvious deformities, full range of motion NEURO: CN II through CN XII grossly intact, motor strength 5/5 PSYCH: A+O x3, pleasant affect, appropriate speech, mood, insight and judgment SKIN: Normal turgor, normal texture, no lesions, no rashes, even hair distribution A/P Discharge Planning Anticipate discharge once pt has been cleared by cardiology Problem List: (1) Chest pain ICD Codes: R07.9 - Chest pain, unspecified Status: Acute Plan: Stress test results 06/03: Lexiscan stress test was performed under standard four minute protocol. Radionuclide was injected one minute prior to ending the test. No electrocardiographic abormalities were present to suggest ischemia. Nuclear imaging and interpretation are pending. (2) HTN (hypertension) ICD Codes: I10 - HTN (hypertension) Status: Acute (3) Diabetes ICD Codes: E11.9 - Diabetes Status: Chronic (4) Hyperlipidemia ICD Codes: E78.5 - Hyperlipidemia, unspecified Status: Acute (5) FEN/PPX Problem Qualifiers (1) Chest pain: Qualified Codes: R07.9 - Chest pain, unspecified Iman Eli MD R3 Jun 04, 2017 08:19
[2017-06-04] MEDS: ACETAMINOPHEN 500 MG CPLT PO PRN (10:26)
[2017-06-04] MEDS ORDERED: DIAZEPAM 5 MG TAB PO SCH (11:30)
[2017-06-04] MEDS ORDERED: ASPIRIN 325 MG TAB PO SCH (11:30)
--- NOTE | 2017-06-04 11:55 | MB ---
cc: Alexey Lanza MD DATE: 06/04/2017 REASON FOR CONSULTATION: Evaluation of abnormal stress test and coronary artery disease. HISTORY OF PRESENT ILLNESS: Caroline Bolanos is a 56-year-old woman currently in between cardiologists. She has known heart disease. On 11/14/2005 she had a stent of the mid circumflex with a 2.5 x 18 mm Cypher stent postdilated with a 2.75 mm balloon. Followup catheterization 06/27/2007 showed a 50% mid LAD lesion with a negative flow reserve, right coronary artery had 20-30% disease, circumflex artery was patent. She has not had angina regularly and in February, she was diagnosed with strokes. This affected her eyesight where she cannot see well on the right side. It has impaired some of her ambulation. She had workup showing 40-50% stenosis of the left internal carotid artery. Blood workup showed she was a homozygous factor V Leiden mutation. She was started on Eliquis. The planned dose was 2-1/2 b.i.d., but she is on 5 b.i.d. She comes in now on Sunday after having multiple episodes of substernal chest tightness with some sweatiness lasting about 5 minutes at a time. This resolved when she came to the hospital. She had no further discomfort here. She has had a nuclear stress test showing an apical and anterolateral ischemic defects. PAST MEDICAL HISTORY: Includes: 1. Carotid disease. 2. Factor V Leiden. 3. Diabetes mellitus on insulin. 4. Coronary artery disease. 5. Obesity. 6. Previous smoking history. 7. Hypertension with left ventricular hypertrophy. 8. Strokes in 02/2017. 9. Glaucoma. 10. Arthritis. 11. Asthma currently inactive. 12. Gastroesophageal reflux disease. MEDICATIONS PRIOR TO THIS ADMISSION: 1. Glucophage 1000 b.i.d. 2. Famotidine 20 b.i.d. 3. Eliquis 5 b.i.d. 4. Atorvastatin 40 daily. 5. Hydrochlorothiazide 25 daily. 6. Lantus 5 units at bedtime. SOCIAL HISTORY: She has 2 children. 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 FAMILY HISTORY: Father of a stroke at 55. Mother of lung cancer. She has a grandmother who has had DVTs. REVIEW OF SYSTEMS: Intermittent acid reflux. The remaining review of systems is negative. PHYSICAL EXAMINATION: GENERAL: Exam reveals an overweight, pleasant, white female in no acute distress. VITAL SIGNS: Charted. HEENT: Unremarkable. NECK: No JVD. No bruits. CHEST: Clear to auscultation. CARDIAC: S1, S2. Regular rate and rhythm, 1/6 systolic ejection murmur. ABDOMEN: Soft, nontender. EXTREMITIES: No clubbing, cyanosis or edema. Radial and pedal pulses are intact. EKG shows sinus rhythm with nonspecific ST-T wave changes. In addition, the EKG demonstrates left anterior fascicular block, possible left ventricular hypertrophy with repolarization changes with a strain pattern an aVL. LABORATORY DATA: Hematocrit 44.5. Troponin is negative x 3. Creatinine 0.95. CTA showing no evidence of pulmonary emboli. Nuclear stress test risk category is listed as low. IMPRESSION: A 56-year-old woman with multiple risk factors with intermittent chest discomfort at rest consistent with unstable angina. A nuclear stress test is abnormal. PLAN: Plan is to perform diagnostic catheterization with possible intervention. She has received apixaban this morning. I will have her catheterization scheduled for tomorrow morning and will do it from the left wrist to minimize bleeding risk. I have spoken to Dr. Shaffer about how to manage her anticoagulation. Probably if she ends up being stented, we will do a dual antiplatelet therapy and take a temporary hiatus from the Eliquis. Informed consent has been obtained for cath and possible intervention. This was done in the presence of her family in the room. MD JANET Alarcon/ROGER , 11:31 AM , 11:54 AM
[2017-06-04] MEDS ORDERED: PILL SPLITTER OTHER PRN (12:00)
[2017-06-04] MEDS ORDERED: diphenhydrAMINE HCL 25 MG CAP PO SCH (12:00)
--- NOTE | 2017-06-04 12:18 | HHI.HP ---
[facility] Service Family Medicine Primary Care Physician Chago Riggs MD Admission Diagnosis Chest pain rule out ACS Diagnoses: (1) Chest pain Diagnosis: Principal (2) HTN (hypertension) (3) Diabetes (4) Hyperlipidemia (5) FEN/PPX International Travel<30 Days: No Contact w/Intl Traveler<30days: No Known Affected Area: No History of Present Illness 56 year old female with history of CVA (February 2017), CAD x1 cardiac stent, type II diabetes, hyperlipidemia, and hypertension presents emergency room due to chest pain. She reports that she had chest pain on the day of admission, sharp in quality, substernal, duration of about 1-2 minutes. Pain was associated with sweating, no associated shortness of breath, dizziness, lightheaded ness. She reports that this pain has been intermittent. She reports that since she has been in the hospital she has not had any additional episodes of chest pain. Her only current complaint is a mild headache. She had a stress done yesterday, which was significant for borderline to mild ischemia at the apex and apical portion of the anterolateral wall. Cardiology has been consulted regarding further intervention. (Iman Eli MD R3) Review of Systems Constitutional: COMPLAINS OF: Diaphoretic episodes Ears, nose, mouth, throat: DENIES: Vertigo Respiratory: DENIES: Wheezing, Shortness of breath Cardiovascular: COMPLAINS OF: Chest pain, DENIES: Syncope Gastrointestinal: DENIES: Abdominal pain, Constipation, Diarrhea Genitourinary: DENIES: Dysuria Musculoskeletal: DENIES: Joint Swelling Integumentary: DENIES: Rash Neurologic: COMPLAINS OF: Headache Psychiatric: DENIES: Mood changes (Iman Eli MD R3) Past Family Social History Past Medical History Factor V Leiden mutation HTN HLD Hypertriglyceridemia Obesity Diabetes type 2 Anemia Asthma CAD (stent, 2006 to circumflex artery) Depression Osteoarthritis Glaucoma Past Surgical History Cardiac stent x 1 in 2005 Reported Medications Reported Meds & Active Scripts Active Glucophage (Metformin HCl) 500 Mg Tab 1,000 Mg PO BIDPC 30 Days Famotidine 20 Mg Tab 20 Mg PO BID 30 Days Eliquis (Apixaban) 5 Mg Tab 5 Mg PO BID 30 Days Atorvastatin (Atorvastatin Calcium) 40 Mg Tab 40 Mg PO HS Hydrochlorothiazide 25 Mg Tab 25 Mg PO DAILY (Iman Eli MD R3) Allergies: Coded Allergies: cefuroxime (Verified Allergy, Mild, Rash, 4/28/18) itchy rash on arms and legs Active Ordered Medications Inpatient Medications Acetaminophen (Tylenol) 500 mg Q4H PRN PO HEADACHE Last administered on at 10:26; Start 06/02/17 at 22:45 Acetaminophen/ Hydrocodone Bitart ([place] 7.5-325 Mg) 1 tab Q4H PRN PO PAIN SCALE 1 TO 7; Start 06/02/17 at 22:45 Al Hydrox/Mg Hydrox/Simethicone (Mag-Al Plus Susp Liq) 30 ml ONCE ONCE PO Last administered on 06/02/17at 20:29; Start 06/02/17 at 20:30; Stop 06/02/17 at 20:31; Status DC Apixaban (Eliquis) 5 mg BID PO Last administered on 06/04/17at 08:00; Start at 10:00; Stop 06/04/17 at 11:22; Status DC Aspirin (Aspirin Chew) 162 mg DAILY CHEW ; Start 06/04/17 at 12:30 Aspirin (Aspirin) 325 mg BAGGAGE CHECKER PO ; Start 06/04/17 at 11:30; Stop 06/04/17 at 11:30; Status DC Atorvastatin Calcium (Lipitor) 40 mg HS PO Last administered on 06/03/17at 20:11 ; Start 06/03/17 at 21:00 Dextrose (D50w (Vial) Inj) 50 ml UNSCH PRN IV PUSH HYPOGLYCEMIA-SEE COMMENTS; Start 06/03/17 at 10:00 Diazepam (Valium) 5 mg BAGGAGE CHECKER PO ; Start 06/04/17 at 11:30; Stop 06/08/17 at 11 :29 Diphenhydramine HCl (Benadryl) 25 mg BAGGAGE CHECKER PO ; Start 06/04/17 at 12:00; Stop 06/08/17 at 11:59 Famotidine (Pepcid) 20 mg BID PO Last administered on 06/04/17at 07:59; Start at 10:00 Glucagon (Glucagon Inj) 1 mg UNSCH PRN OTHER HYPOGLYCEMIA-SEE COMMENTS; Start 06/03/17 at 10:00 Hydrochlorothiazide (Hydrodiuril) 25 mg DAILY PO Last administered on at 07:59; Start 06/03/17 at 10:00 Insulin Aspart (NovoLOG SUPPLEMENTAL SCALE) 1 ACHS SLIDING SCALE SQ Last administered on 06/03/17at 21:00; Start 06/03/17 at 12:00 Lidocaine HCl (Xylocaine 2% Viscous) 15 ml ONCE ONCE PO Last administered on at 20:29; Start 06/02/17 at 20:30; Stop 06/02/17 at 20:31; Status DC Metoprolol Tartrate (Lopressor) 12.5 mg Q12HR PO ; Start 06/04/17 at 21:00 Miscellaneous (Pill Splitter) 1 ea UNSCH PRN OTHER SEE LABEL COMMENTS; Start at 12:00 Morphine Sulfate (Morphine Inj) 2 mg Q4H PRN IV PUSH PAIN SCALE 8 TO 10; Start 06/02/17 at 22:45 Nitroglycerin (Nitroglycerin 2% Oint) 0.5 inch Q8HR TOPICAL ; Start 06/04/17 at 14:00 Nitroglycerin (Nitrostat Sl) 0.4 mg Q5M PRN SL CHEST PAIN; Start 06/02/17 at 22 :45 Ondansetron HCl (Zofran Inj) 4 mg Q6H PRN IV PUSH NAUSEA; Start 06/02/17 at 22: 45 Potassium Bicarbonate (Effer-K Eff) 25 meq ONCE ONCE PO ; Start 06/04/17 at 13: 00; Stop 06/04/17 at 13:01 Sodium Chloride 1,000 ml @ 100 mls/hr Q10H IV ; Start 06/04/17 at 12:00; Stop 06/09/17 at 11:59 Sodium Chloride (NS Flush) 2 ml BID IV FLUSH Last administered on 06/04/17at 08: 00; Start 06/03/17 at 09:00 Family History DM, HTN, CAD Social History Denies tobacco, or alcohol use (Iman Eli MD R3) Physical Exam Vital Signs Vital Signs Date Time Temp Pulse Resp B/P (MAP) Pulse Ox O2 Delivery O2 Flow Rate FiO2 06/04/17 11:41 18 06/04/17 11:40 98.0 75 16 136/79 (98) 95 06/04/17 10:03 97 21 06/04/17 09:26 97.8 78 16 123/78 (93) 95 06/04/17 03:58 65 06/04/17 00:35 98.1 69 16 131/77 (95) 96 06/04/17 00:00 69 06/03/17 20:01 98.6 92 20 156/85 (108) 96 06/03/17 20:00 94 06/03/17 16:00 77 06/03/17 15:20 98.1 83 16 128/82 (97) 94 06/03/17 12:38 97.6 83 16 126/80 (95) 98 Physical Exam GENERAL: This is a well-nourished, well-developed patient, in no apparent distress. SKIN: No rashes, ecchymoses or lesions. Cool and dry. HEAD: Atraumatic. Normocephalic. No temporal or scalp tenderness. EYES: Pupils equal round and reactive. Extraocular motions intact. No scleral icterus. No injection or drainage. ENT: Nose without bleeding, purulent drainage or septal hematoma. Throat without erythema, tonsillar hypertrophy or exudate. Uvula midline. Airway patent. NECK: Trachea midline. No JVD or lymphadenopathy. Supple, nontender, no meningeal signs. CARDIOVASCULAR: Regular rate and rhythm without murmurs, gallops, or rubs. RESPIRATORY: Clear to auscultation. Breath sounds equal bilaterally. No wheezes , rales, or rhonchi. GASTROINTESTINAL: Abdomen soft, non-tender, nondistended. No hepato-splenomegaly , or palpable masses. No guarding. MUSCULOSKELETAL: Extremities without clubbing, cyanosis, or edema. No joint tenderness, effusion, or edema noted. No calf tenderness. Negative Homans sign bilaterally. NEUROLOGICAL: Awake and alert. Cranial nerves II through XII intact. Motor and sensory grossly within normal limits. Five out of 5 muscle strength in all muscle groups. Normal speech. (Iman Eli MD R3) Result Diagram: 06/02/17203506/02/172035 Caprini VTE Risk Assessment Caprini VTE Risk Assessment: Mod/High Risk (score >= 2) (Factor V Leiden) Caprini Risk Assessment Model Point Value = 1 Point Value = 2 Point Value = 3 Point Value = 5 Age 41-60 Minor surgery BMI > 25 kg/m2 Swollen legs Varicose veins or History of unexplained or recurrent spontaneous Oral contraceptives or hormone replacement Sepsis (< 1 month) Serious lung disease, including pneumonia (< 1 month) Abnormal pulmonary function Acute myocardial infarction Congestive heart failure (< 1 month) History of inflammatory bowel disease Medical patient at bed rest Age 61-74 Arthroscopic surgery Major open surgery (> 45 min) Laparoscopic surgery (> 45 min) Malignancy Confined to bed (> 72 hours) Immobilizing plaster cast Central venous access Age >= 75 History of VTE Family history of VTE Factor V Leiden Prothrombin [id number] Lupus anticoagulant Anticardiolipin antibodies Elevated serum homocysteine Heparin-induced thrombocytopenia Other congenital or acquired thrombophilia Stroke (< 1 month) Elective arthroplasty Hip, pelvis, or leg fracture Acute spinal cord injury (< 1 month) Prophylaxis Regimen Total Risk Factor Score Risk Level Prophylaxis Regimen 0-1 Low Early ambulation 2 Moderate Order ONE of the following: *Sequential Compression Device (SCD) *Heparin 5000 units SQ BID 3-4 Higher Order ONE of the following medications: *Heparin 5000 units SQ TID *Enoxaparin/Lovenox 40 mg SQ daily (WT < 150 kg, CrCl > 30 mL/min) *Enoxaparin/Lovenox 30 mg SQ daily (WT < 150 kg, CrCl > 10-29 mL/min) *Enoxaparin/Lovenox 30 mg SQ BID (WT < 150 kg, CrCl > 30 mL/min) AND/OR *Sequential Compression Device (SCD) 5 or more Highest Order ONE of the following medications: *Heparin 5000 units SQ TID (Preferred with Epidurals) *Enoxaparin/Lovenox 40 mg SQ daily (WT < 150 kg, CrCl > 30 mL/min) *Enoxaparin/Lovenox 30 mg SQ daily (WT < 150 kg, CrCl > 10-29 mL/min) *Enoxaparin/Lovenox 30 mg SQ BID (WT < 150 kg, CrCl > 30 mL/min) AND *Sequential Compression Device (SCD) (Iman Eli MD R3) Assessment and Plan Assessment and Plan Pt is a 56-year-old female past medical history significant for CVA, CAD, prior cardiac stent placement, factor V Leiden presenting due to chest pain admitted for further workup (due to abnormal stress test) including possible cardiac catheterization. Cardiology has been consulted. Code Status Full Discussed Condition With sandra Michelle (Iman Eli MD R3) Attending Attestation Patient seen and examined. Case reviewed and discussed with the resident team. Agree with plan of care as discussed with me and documented in the resident note. agree with assessment of what should be done with her factor V Leiden. She was not aware she had this (suspect some memory issues near her CVA) but her sister has the same problem. Informed pt and her family that she needed to follow up regularly with Hematology as she has this genetic problem and the standard treatments may not be the best choice. There is some uncertainty regarding the dose of eliquis and the dose of aspirin. One note in rehab listed 2.5 mg BID of eliquis and 325 of aspirin. However 5mg BID and 81 mg of aspirin were ordered and she was sent home from rehab on that dose. If she gets a stent and needs other antiplatelet drugs then Hematology will need to assist with the best choices for her. Fortunately, her chest pain has been gone here in the hospital. She does say she gets most of her problems on exertion. (Hoa Michelle MD) Problem List: (1) Chest pain ICD Codes: R07.9 - Chest pain, unspecified Status: Acute Plan: Stable Patient denies recurrence of chest pain. Cardiology consulted, appreciate recommendations and intervention Myocardial perfusion scan from 06/03: Borderline to mild ischemia at the apex and apical portion of the anterior lateral wall. -Lipid profile ordered -Aspirin 162 mg daily -Metoprolol tartrate 12.5 mg twice a day (2) Factor V Leiden ICD Codes: D68.51 - Activated protein C resistance Plan: -Eliquis on hold for cardiac catheterization -Consider consulting hematology for further recommendations (3) HTN (hypertension) ICD Codes: I10 - HTN (hypertension) Status: Acute Plan: BP stable -HCTZ 25mg po daily -Metoprolol tartrate 12.5mg daily (4) Diabetes ICD Codes: E11.9 - Diabetes Status: Chronic Plan: -Low dose sliding scale (5) Hyperlipidemia ICD Codes: E78.5 - Hyperlipidemia, unspecified Status: Acute Plan: -Continue Atorvastatin (6) FEN/PPX Plan: Fluids: NS 100ml/hr while pt is NPO Electrolytes: WNL continue to monitor Nutrition: Pt NPO for possible catheterization (Iman Eli MD R3) Physician Certification 2 Midnight Certification Type: Admission for Inpatient Services Order for Inpatient Services The services are ordered in accordance with Medicare regulations or non- Medicare payer requirements, as applicable. In the case of services not specified as inpatient-only, they are appropriately provided as inpatient services in accordance with the 2-midnight benchmark. Estimated LOS (days): 3 3 days is the estimated time the patient will need to remain in the hospital, assuming treatment plan goals are met and no additional complications. Post-Hospital Plan: Not yet determined (Iman Eli MD R3) Problem Qualifiers (1) Chest pain: Qualified Codes: R07.9 - Chest pain, unspecified Iman Eli MD R3 Jun 04, 2017 12:18 Hoa Michelle MD June 05, 2017 10:51
[2017-06-04] MEDS ORDERED: POTASSIUM BICARBONATE 25 MEQ EFFERVESCENT TAB PO ONE (13:00)
[2017-06-04] MEDS: SODIUM CHLOR 0.9% 1000 ML INJ 1,000 ML IV SCH ×2 (13:02→21:40)
[2017-06-04] MEDS: ASPIRIN 81 MG CHEW TAB CHEW SCH (13:03)
[2017-06-04] MEDS: NITROGLYCERIN 2% OINT 1 GM PACKET TOPICAL SCH ×2 (14:13→21:41)
[2017-06-04] MEDS ORDERED: MORPHINE SULFATE 4 MG/ML INJ IV PUSH PRN (20:45)
[2017-06-04] MEDS: ATORVASTATIN 40 MG TAB PO SCH (21:38)
[2017-06-04] MEDS: METOPROLOL TARTRATE 25 MG TAB PO SCH (21:39)
[2017-06-05] VITALS (7 sets, daily range): BP systolic 119–131; BP diastolic 62–76; PULSE 67–80; RESP 16–20; TEMP 97.3–98.1; O2SAT 95–96
[2017-06-05] MEDS: SODIUM CHLOR 0.9% 1000 ML INJ 1,000 ML IV SCH (05:19)
[2017-06-05] MEDS: NITROGLYCERIN 2% OINT 1 GM PACKET TOPICAL SCH ×2 (05:19→14:54)
[2017-06-05 07:50] LABS: AUTOMATED NEUTROPHIL # 4.8 TH/MM3 (1.8-7.7); BASOPHIL # 0.1 TH/MM3 (0-0.2); EOSINOPHIL # 0.2 TH/MM3 (0-0.4); EOSINOPHIL % 2.7 % (0.0-4.0); HEMATOCRIT 38.4 % (35.0-46.0); HEMOGLOBIN 13.4 GM/DL (11.6-15.3); LYMPH % 23.6 % (9.0-44.0); LYMPHOCYTE # 1.8 TH/MM3 (1.0-4.8); MEAN CELL VOLUME 83.5 FL (80.0-100.0); MEAN CORPUSCULAR HGB CONC 34.8 % (32.0-36.0); MONO % 10.2 % (0.0-8.0); MONOCYTE # 0.8 TH/MM3 (0-0.9); NEUT % 62.5 % (16.0-70.0); PLATELET COUNT 246 TH/MM3 (150-450); RED CELL DISTRIBUTION WIDTH 13.2 % (11.6-17.2); WHITE BLOOD COUNT 7.7 TH/MM3 (4.0-11.0)
[2017-06-05] MEDS: INSULIN ASPART SUPPLEMENTAL SCALE SQ SCH ×2 (08:00→13:44)
[2017-06-05 08:10] LABS: BICARBONATE 24.5 MEQ/L (21.0-32.0); CALCIUM 8.8 MG/DL (8.5-10.1); CHOLESTEROL/ HDL RATIO 2.99 RATIO; CREATININE 0.73 MG/DL (0.50-1.00); HDL CHOLESTEROL 32.4 MG/DL (40.0-60.0)
[2017-06-05] MEDS: HYDROCHLOROTHIAZIDE 25 MG TAB PO SCH (08:14)
[2017-06-05] MEDS: ASPIRIN 81 MG CHEW TAB CHEW SCH (08:14)
[2017-06-05] MEDS: FAMOTIDINE 20 MG TAB PO SCH (08:15)
[2017-06-05] MEDS: METOPROLOL TARTRATE 25 MG TAB PO SCH (08:15)
[2017-06-05] MEDS: SODIUM CHLORIDE 0.9% FLUSH 10 ML FLUSH IV FLUSH SCH (08:15)
--- NOTE | 2017-06-05 08:17 | HHI.FPPN ---
Subjective Remarks Pt seen and examined this morning. No acute events overnight Objective Vitals Vital Signs Date Time Temp Pulse Resp B/P (MAP) Pulse Ox O2 Delivery O2 Flow Rate FiO2 06/05/17 08:06 96 21 06/05/17 04:00 98.0 80 16 121/62 (81) 96 06/05/17 04:00 Room Air 06/05/17 03:47 67 06/05/17 00:26 21 06/05/17 00:00 Room Air 06/05/17 00:00 98.1 79 16 119/63 (81) 95 06/04/17 23:49 72 06/04/17 20:00 98.0 74 16 131/78 (95) 97 06/04/17 16:01 97.6 75 18 146/69 (94) 98 06/04/17 15:35 84 06/04/17 11:41 18 06/04/17 11:40 98.0 75 16 136/79 (98) 95 06/04/17 10:03 97 21 06/04/17 09:26 97.8 78 16 123/78 (93) 95 I/O 06/04/17 06/04/17 06/04/17 06/05/17 06/05/17 06/05/17 07:00 15:00 23:00 07:00 15:00 23:00 Intake Total 60 ml 1000 ml 1000 ml Balance 60 ml 1000 ml 1000 ml Intake IV Total 1000 ml 1000 ml TPN/PPN 60 ml # Voids 2 # Bowel Movements 0 Result Diagram: 06/05/1762906/05/1730 Objective Remarks GENERAL: Alert WN, WD, NAD, pleasant, , moderately obese female HEAD: NC, AT ENT: Mucous membranes pink and moist NECK: Supple, no masses, trachea midline CV: RRR, without murmur, rub, gallop, no JVD, S1-S2 no S3-S4. No carotid or femoral bruits. Chest wall nontender with palpations. RESP: Clear lungs throughout bilateral, no crackles, wheeze, rhonchi, symmetrical chest rise, nonlabored, able to speak in full sentences ABD: Soft, NT, ND, no masses, positive bowel tones EXT: Pulses +2x4, no dependent edema MS: Normal tone x4 extremities, no obvious deformities, full range of motion NEURO: CN II through CN XII grossly intact, motor strength 5/5 PSYCH: A+O x3, pleasant affect, appropriate speech, mood, insight and judgment SKIN: Normal turgor, normal texture, no lesions, no rashes, even hair distribution A/P Assessment and Plan Pt is a 56-year-old female past medical history significant for CVA, CAD, prior cardiac stent placement, factor V Leiden presenting due to chest pain admitted for further workup (due to abnormal stress test) including possible cardiac catheterization. Cardiology has been consulted. Discharge Planning Anticipate discharge once pt has been cleared by cardiology Problem List: (1) Chest pain ICD Codes: R07.9 - Chest pain, unspecified Status: Acute Plan: Stable Patient denies recurrence of chest pain. Cardiology consulted, appreciate recommendations and intervention Myocardial perfusion scan from 06/03: Borderline to mild ischemia at the apex and apical portion of the anterior lateral wall. -Lipid profile ordered -Aspirin 162 mg daily -Metoprolol tartrate 12.5 mg twice a day (2) Factor V Leiden ICD Codes: D68.51 - Activated protein C resistance Plan: -Eliquis on hold for cardiac catheterization -Consider consulting hematology for further recommendations (3) HTN (hypertension) ICD Codes: I10 - HTN (hypertension) Status: Acute Plan: BP stable -HCTZ 25mg po daily -Metoprolol tartrate 12.5mg daily (4) Diabetes ICD Codes: E11.9 - Diabetes Status: Chronic Plan: -Low dose sliding scale (5) Hyperlipidemia ICD Codes: E78.5 - Hyperlipidemia, unspecified Status: Acute Plan: -Continue Atorvastatin (6) FEN/PPX Plan: Fluids: NS 100ml/hr while pt is NPO Electrolytes: WNL continue to monitor Nutrition: Pt NPO for possible catheterization Problem Qualifiers (1) Chest pain: Qualified Codes: R07.9 - Chest pain, unspecified Iman Eli MD R3 June 05, 2017 08:17
--- NOTE | 2017-06-05 08:43 | HHI.FPPN ---
Subjective Remarks Pt seen this morning before leaving the floor for catheterization. Pt has been afebrile, vital signs stable. She reports feeling well overall, mild anxiety due to upcoming procedure. She denies any additional episodes of chest pain. (Iman Eli MD R3) Objective Vitals Vital Signs Date Time Temp Pulse Resp B/P (MAP) Pulse Ox O2 Delivery O2 Flow Rate FiO2 06/05/17 08:06 96 21 06/05/17 07:00 Room Air 06/05/17 04:00 98.0 80 16 121/62 (81) 96 06/05/17 04:00 Room Air 06/05/17 03:47 67 06/05/17 00:26 21 06/05/17 00:00 Room Air 06/05/17 00:00 98.1 79 16 119/63 (81) 95 06/04/17 23:49 72 06/04/17 20:00 98.0 74 16 131/78 (95) 97 06/04/17 16:01 97.6 75 18 146/69 (94) 98 06/04/17 15:35 84 06/04/17 11:41 18 06/04/17 11:40 98.0 75 16 136/79 (98) 95 06/04/17 10:03 97 21 06/04/17 09:26 97.8 78 16 123/78 (93) 95 I/O 06/04/17 06/04/17 06/04/17 06/05/17 06/05/17 06/05/17 07:00 15:00 23:00 07:00 15:00 23:00 Intake Total 60 ml 1000 ml 1000 ml Balance 60 ml 1000 ml 1000 ml Intake IV Total 1000 ml 1000 ml TPN/PPN 60 ml # Voids 2 # Bowel Movements 0 (Iman Eli MD R3) Result Diagram: 06/05/17 0630 06/05/17 0630 Objective Remarks GENERAL: Alert WN, WD, NAD, pleasant, , moderately obese female SKIN: Cool and dry. HEAD: NC, AT ENT: Mucous membranes pink and moist NECK: Supple, no masses, trachea midline CV: Regular rate and rhythm RESP: Good air movement, normal work of breathing. Able to speak in full sentences ABD: Nondistended EXT: No significant lower extremity edema MS: Normal tone x4 extremities, no obvious deformities NEURO: CN II through CN XII grossly intact PSYCH: A+O x3, pleasant affect, appropriate speech, mood, insight and judgment SKIN: Normal turgor, normal texture, no lesions, no rashes, even hair distribution (Iman Eli MD R3) A/P Assessment and Plan Pt is a 56-year-old female past medical history significant for CVA, CAD, prior cardiac stent placement, factor V Leiden presenting due to chest pain admitted for further workup (due to abnormal stress test) including possible cardiac catheterization. Cardiology has been consulted. Discharge Planning Anticipate discharge once pt has been cleared by cardiology (Iman Eli MD R3) Attending Attestation Patient seen and examined. Case reviewed and discussed with the resident team. Agree with plan of care as discussed with me and documented in the resident note. no further pain. explained to her she will need to follow up with Hematology for her factor V leiden (Hoa Michelle MD) Problem List: (1) Chest pain ICD Codes: R07.9 - Chest pain, unspecified Status: Acute Plan: Stable Patient denies recurrence of chest pain. Cardiology consulted, appreciate recommendations and intervention Myocardial perfusion scan from 06/03: Borderline to mild ischemia at the apex and apical portion of the anterior lateral wall. Anticipate cardiac catheterization later this morning. -Lipid profile ordered, total cholesterol low at 97 -Aspirin 162 mg daily -Metoprolol tartrate 12.5 mg twice a day (2) Factor V Leiden ICD Codes: D68.51 - Activated protein C resistance Plan: -Eliquis on hold for cardiac catheterization -Consider consulting hematology for further recommendations (3) HTN (hypertension) ICD Codes: I10 - HTN (hypertension) Status: Acute Plan: BP stable -HCTZ 25mg po daily -Metoprolol tartrate 12.5mg daily (4) Diabetes ICD Codes: E11.9 - Diabetes Status: Chronic Plan: -Low dose sliding scale (5) Hyperlipidemia ICD Codes: E78.5 - Hyperlipidemia, unspecified Status: Acute Plan: -Continue Atorvastatin (6) FEN/PPX Plan: Fluids: NS 100ml/hr while pt is NPO Electrolytes: WNL continue to monitor Nutrition: Pt NPO for catheterization (Iman Eli MD R3) Problem Qualifiers (1) Chest pain: Qualified Codes: R07.9 - Chest pain, unspecified Iman Eli MD R3 June 05, 2017 08:42 Hoa Michelle MD June 08, 2017 11:13
[2017-06-05] MEDS ORDERED: HEPARIN SODIUM - IV 10,000 UNITS/10 ML VIAL ONE (08:47)
[2017-06-05] MEDS ORDERED: MIDAZOLAM HCL 2 MG/2 ML VIAL ONE ×2 (08:51→09:26)
[2017-06-05] MEDS ORDERED: VERAPAMIL HCL 5 MG/2 ML VIAL ONE (08:51)
[2017-06-05] MEDS ORDERED: SODIUM CHLOR 0.9% 1000 ML INJ 1,000 ML IV SCH (09:52)
[2017-06-05] MEDS ORDERED: MISC INFORMATION XX ONE (10:00)
--- NOTE | 2017-06-05 10:48 | MA ---
cc: Alexey Lanza MD DATE: 06/05/2017 PROCEDURES PERFORMED: Left heart catheterization, left ventriculography, coronary angiography, left radial arterial approach. BRIEF HISTORY: Caroline Bolanos is a 56-year-old woman who in 2005 had stenting of her circumflex artery. A couple years later, she had a catheterization that showed about a 50% LAD lesion with a negative FFR. She comes in now with intermittent light angina on Sunday as it resolved afterward. Nuclear stress test showed a low risk mild apical ischemia. DESCRIPTION OF PROCEDURE: The patient was brought to the cardiac catheterization lab in a fasting state. Using 1% lidocaine for local anesthesia, a Terumo slender sheath was inserted in the left radial artery without difficulty. Standard cocktail was administered with heparin, nitroglycerin and verapamil. Coronary angiography was completed using a left 4 and right 4 Pietro guiding catheter. An angled pigtail catheter was then used to measure left ventricular pressure followed by pullback. I have opted to treat her medically. The sheath is then removed with a Terumo band placed. There were no complications. ESTIMATED BLOOD LOSS: 5 mL. FINDINGS: 1. Hemodynamics: Left ventricular pressure is 122/16 with an end diastolic pressure of 22. Aortic pressure is 121/69 with a mean of 92. There was no gradient during pullback from the left ventricle to the aorta. 2. Left ventriculography: Left ventriculography shows a symmetrically rey left ventricle with an estimated ejection fraction of 60%. There is minimal calcification seen in the LAD. 3. Coronary angiography: The left main coronary artery appears normal. The left anterior descending artery proximally has about a 40% stenosis. It is no worse than 50%. There are slight irregularities throughout the remainder of the LAD, but no stenosis. Circumflex artery has a widely patent proximal stent. There are only slight irregularities in the circumflex system. The right coronary artery is dominant. This vessel has about a 25% mid stenosis and an eccentric 20% distal stenosis. It gives off a PDA branch and a large PL branch. CONCLUSIONS: 1. Mildly elevated left ventricular end-diastolic pressure. 2. Preserved left ventricular systolic function. 3. Mild coronary disease. RECOMMENDATIONS: Medical therapy. Okay to discharge home later today. I would reduce her Eliquis to 2.5 b.i.d. I would add Ecotrin 81 mg daily for antianginal therapy. I have put her on Imdur 30 mg daily and metoprolol 12.5 b.i.d., along with nitroglycerin p.r.n. for angina. We will continue her statin therapy. She can be followed up in the office in a few weeks. MD JANET Alarcon/ROGER , 09:50 AM , 10:47 AM
[2017-06-05] MEDS ORDERED: IOHEXOL 350 MG/ML 100 ML BTL (for Cath Lab) OTHER ONE (14:34)
[2017-06-05] MEDS ORDERED: APIX2.5T PO (16:09)
[2017-06-05] MEDS ORDERED: NITR0.4S SL (16:09)
[2017-06-05] MEDS ORDERED: METO25TA3 PO (16:09)
[2017-06-05] MEDS ORDERED: ISOS30TA3 PO (16:09)
[2017-06-05] MEDS ORDERED: ECASA81 PO (16:09)
--- NOTE | 2017-06-05 16:31 | HHI.DCPOC ---
Discharge Care Plan Diagnosis: (1) HTN (hypertension) (2) Hyperlipidemia (3) Chest pain (4) CAD (coronary artery disease) Goals to Promote Your Health * To prevent worsening of your condition and complications * To maintain your health at the optimal level Directions to Meet Your Goals Take your medications as prescribed Follow your dietary instruction Follow activity as directed Keep your appointments as scheduled Take your immunizations and boosters as scheduled If your symptoms worsen call your PCP, if no PCP go to Urgent Care Center or Emergency Room Smoking is Dangerous to Your Health. Avoid second hand smoke Call the 24-hour hour crisis hotline for domestic abuse at Iman Eli MD R3 June 05, 2017 16:31
[2017-06-06] MEDS ORDERED: APIXABAN 2.5 MG TABLET PO SCH (09:00)
[2017-06-06] MEDS ORDERED: ASPIRIN EC 81 MG TABEC PO SCH (09:00)
== END 2017-06-05 17:49 | disposition home or self-care (01) | DRG 287 ==
LOC: NEPE 20:03 → NEDA 22:34 → NEPFCDU 23:48 → OBSVTOIN 06-04 09:52 → N04B 06-04 19:37
PROVIDERS: ADMIT Family Medicine; ATTEND Family Medicine
PROC: B2151ZZ Fluoroscopy of Left Heart using Low Osmolar Contrast (ICD-10-PCS; 2017-06-05)
PROC: B2111ZZ Fluoroscopy of Multiple Coronary Arteries using Low Osmolar Contrast (ICD-10-PCS; 2017-06-05)
PROC: 4A023N7 Measurement of Cardiac Sampling and Pressure, Left Heart, Percutaneous Approach (ICD-10-PCS; principal; 2017-06-05 08:45)
DX: I25.10 Atherosclerotic heart disease of native coronary artery without angina pectoris (principal); D68.51 Activated protein C resistance; I10 Essential (primary) hypertension; E11.9 Type 2 diabetes mellitus without complications; E78.5 Hyperlipidemia, unspecified; J45.909 Unspecified asthma, uncomplicated; E66.9 Obesity, unspecified; F32.9 Major depressive disorder, single episode, unspecified; M19.90 Unspecified osteoarthritis, unspecified site; Z86.73 Personal history of transient ischemic attack (TIA), and cerebral infarction without residual deficits; Z68.32 Body mass index [BMI] 32.0-32.9, adult; Z95.5 Presence of coronary angioplasty implant and graft; Z87.891 Personal history of nicotine dependence; Z79.01 Long term (current) use of anticoagulants; Z79.4 Long term (current) use of insulin; Z79.899 Other long term (current) drug therapy; Z88.8 Allergy status to other drugs, medicaments and biological substances
CPT/HCPCS: 71045; 71275; 78452; 80048; 80053; 80061; 82550; 82552; 82948; 83690; 83735; 84484; 85025; 85610; 85730; 93005; 93017; 93458; 99152; 99153; 99285; A9502; C1769; C1893; G0378; J1644; J1815; J2250; J2785; J3010; J7030; Q9967